=== PATIENT | male | born 1945 | race Caucasian/White ===

== ENCOUNTER → 2017-02-14 | Outpatient (CLI) | payer BC ==
[~2017-02-14] MED LIST: ASPI81TA28 PO; BNC20 PO; FLM4 PO; MORP1TAB12 PO; NRN800 PO; OMEP20CA9 PO; OXYC-57 PO; PREG1CAP36 PO; PSYL55.43 PO; TRIA37.5 PO; VTMD PO
== END | disposition home or self-care (01) ==
LOC: C.LAB1850 15:34
PROVIDERS: ATTEND Physician Assistant Medical
DX: C61 Malignant neoplasm of prostate (principal)

== ENCOUNTER → 2017-08-23 | Outpatient (CLI) | payer BC ==
[2017-08-23 14:58] VITALS: BP 118/75; PULSE 80; TEMP 36.7; O2SAT 95
--- NOTE | 2017-08-24 07:34 | Radiation Oncology Follow-Up ---
Radiation Oncology Follow-Up Date of Visit Aug 23, 2017. Reason For Visit Annual follow-up Radiation Completion Date 08/01/12 Diagnosis (1) Prostate cancer Status: Resolved Onset Date: 04/03/2012 Location: both lobes of the prostate Histology Subtype: adenocarcinoma Stage: ll Permanent Comment: positive family history of prostate cancer Rising PSA biopsy positive for adenocarcinoma Pierson grade 3+3 biopsy stage TIIc presenting PSA 5.9 Status post completion of radiation therapy utilizing IMRT/IGRT completed 2011 received 7800 cGy Last Edited By: Iveth Guzman on February 24, 2015 17:12 Interim History He's been doing well over the past year from urinary standpoint. He completed an AUA form and gave a score of 4. He continues on tamsulosin once daily. She completed expanded prostate cancer index composite for clinical practice and gave a score of 4 of 12 in urinary incontinence symptoms. He gave a score of 0 of 12 in urinary irritation symptoms. He gave a score of 0 of 12 bowel symptoms. He gave a score of 7 of 12 in sexual symptoms. He gave a score of 5 of 12 in hormonal vitality symptoms. His total with 16 of 60. He continues to have ongoing back pain which is chronic for many years. He had multiple MRIs and 2016. In these have shown degenerative changes as well as spinal stenosis. In discussing these findings I reviewed with him that these have not shown any signs of metastatic disease. This is in keeping with his excellent PSAs. His most recent PSA was 08/14/2017. This was 0.650. He had a PSA on 2016 that was 0.839. Allergies Coded Allergies: Adhesives (Verified Allergy, Mild, RASH, 10/06/16) Meloxicam (Unverified Allergy, Mild, rash, 10/06/16) Benazepril (Unverified Allergy, Unknown, rash, 10/06/16) Ciprofloxacin (Unverified Allergy, Unknown, rash, 10/06/16) Influenza Vaccine Live (Unverified Allergy, Unknown, rash, 10/06/16) Latex1 -Allergic Contact Dermititis (Verified Allergy, Unknown, RASH, ITCHY, 10/06/16) Lubiprostone (Verified Allergy, Unknown, UNKNOWN, 10/06/16) Red Dye (Verified Allergy, Unknown, UNKNOWN, 10/06/16) Yellow Dye (Verified Allergy, Unknown, UNKNOWN, 10/06/16) Tolterodine (Verified Adverse Reaction, Mild, BREASTS SWELL AND HURT, ) Home Medications Scheduled Aspirin (Aspirin Ec), 81 MG PO DAILY Ergocalciferol (Vitamin D), 50,000 UNITS PO WK Morphine Sulfate (Morphine Sulfate Er), 1 TAB PO DAILY Olmesartan Medoxomil (Benicar), 20 MG PO DAILY Omeprazole (Prilosec), 20 MG PO DAILY Pregabalin (Lyrica), 25 MG PO BID Psyllium (Metamucil Powder), 1 PACK PO DAILY Tamsulosin HCl (Tamsulosin HCl), 0.4 MG PO HS Triamterene/Hctz (Dyazide 37.5MG/25MG), 1 CAP PO QAM Scheduled PRN Oxycodone/Acetaminophen 5MG/325MG (Percocet 5MG/325MG), 1-2 TABLETS PO TID PRN for Pain Review of Systems Gastrointestinal: Symptoms: WNL Oral: Symptoms: No Problems Respiratory: Symptoms: WNL Urinary: Symptoms: WNL, Nocturia Comments: Nocturia x 1, See AUA & EPIC Physical Exam Vital Signs Date Time Temp Pulse Resp B/P (MAP) Pulse Ox O2 Delivery O2 Flow Rate FiO2 08/23/17 14:58 36.7 80 18 118/75 95 Fatigue: None General Appearance: no apparent distress Eyes: normal inspection, EOMI ENT: normal ENT inspection, hearing grossly normal Neck: no adenopathy, thyroid normal Respiratory/Chest: lungs clear, no respiratory distress, no accessory muscle use Cardiovascular: regular rate, rhythm, no gallop, no murmur Abdomen: non tender, soft, no organomegaly Anal / Rectum: Mild external hemorrhoids. Normal sphincter tone. No rectal masses and no rectal bleeding. Extremities: no pedal edema Neurologic/Psychiatric: no motor/sensory deficits, alert, normal mood/affect Skin: warm/dry Laboratory Studies Test 08/14/17 10:07 Prostate Specific Antigen 0.650 ng/ml (0.000-4.000) Assessment & Plan Plan: We reviewed his PSAs. I've given him a printout of the PSAs over the past several years. He is now going to continue follow-up with his primary care physician. A follow-up appointment with our office was not given. We did discuss that she should continue to have PSAs on an annual basis as well as digital rectal examinations. He may call our office if he has any questions or concerns with be happy to see him. Total Time In Follow-Up I spent 20 minutes speaking to the patient and performing examination. I spent 15 minutes reviewing information and completing this note. Copy To Tung Greco M.D.
== END | disposition home or self-care (01) ==
LOC: C.ONC 14:49
PROVIDERS: ATTEND Physician Assistant Medical
DX: Z08 Encounter for follow-up examination after completed treatment for malignant neoplasm (principal); Z92.3 Personal history of irradiation; Z85.46 Personal history of malignant neoplasm of prostate

== ENCOUNTER 2019-01-26 10:45 | Inpatient (IN) ==
[2019-01-26 11:47] LABS: Basophils # (auto) 0.04 K/uL (0-0.2); Basophils % (auto) 0.4 %; Eosinophils # (auto) 0.06 K/uL (0-0.5); Eosinophils % (auto) 0.7 %; Hematocrit (blood only) 46.6 % (42-52); Hemoglobin 15.9 g/dL (14.0-18.0); Immature Granulocytes # (auto) 0.04 K/uL (0.00-0.02); Immature Granulocytes % (auto) 0.4 %; Lymphocytes # (auto) 3.99 K/uL (1.2-3.4); Lymphocytes % (auto) 43.6 %; Mean Corpuscular Hgb Conc 34.1 g/dL (32-36); Mean Corpuscular Volume 92.6 fL (80-100); Monocytes # (auto) 0.74 K/uL (0.11-0.59); Monocytes % (auto) 8.1 %; Neutrophils # (auto) 4.29 K/uL (1.4-6.5); Neutrophils % (auto) 46.8 %; Platelet Count 251 K/uL (130-400); RDW Coefficient of Variation 14.2 % (11.5-14.5); RDW Standard Deviation 48.4 fL (36.4-46.3); Red Blood Count 5.03 M/uL (4.7-6.1); White Blood Count 9.16 K/uL (4.8-10.8)
[2019-01-26 11:56] LABS: Prothrombin Time 10.5 Seconds (9.0-12.0)
--- NOTE | 2019-01-26 11:59 | XRay Report ---
XR chest 1V portable CLINICAL HISTORY: weakness COMPARISON STUDY: 06/27/2018 FINDINGS: The heart is normal in size. There is stable aortic tortuosity/ectasia. There is no lobar c onsolidation. There is subtle interstitial thickening, a finding which may in part be secondary to te chnical factors. There is no overt failure. IMPRESSION: 1. Subtle nonspecific interstitial thickening 2. No evidence of focal pulmonary consolidation 3. No evidence of overt failure Electronically signed by: Alek Stout M.D. 01/26/2019 11:58 AM
[2019-01-26 12:14] LABS: Albumin Level 3.7 gm/dl (3.4-5.0); BUN Creatinine Ratio 13.2 (10-20); Calcium 9.2 mg/dl (8.5-10.1); Creatinine Clr Calc Pharmacy 58.9 ml/min; Est GFR (African American) 55.1; Est GFR (Non-African American) 47.6; Magnesium 1.8 mg/dl (1.8-2.4); Potassium 4.7 mmol/L (3.5-5.1)
[2019-01-26 12:16] LABS: Appearance Urine Clear (Clear); Bacteria Urine Automated Negative (Negative); Bilirubin Urine Negative (Negative); Blood Urine Trace (Negative); Cast Urine Automated 0 /lpf (0-5); Color Urine Yellow; Epithelial Cell Urine Auto 0-5 /lpf (0-5); Glucose Urine UA 3+ (Negative); Ketones Urine Negative (Negative); Leukocyte Esterase Urine Negative (Negative); Nitrite Urine Negative (Negative); Protein Urine Negative (Negative); RBC Urine Automated 0-4 /hpf (0-4); Urobilinogen Urine Negative (Negative); WBC Urine Automated 0 /hpf (0-5); pH Urine 5.5 (4.5-7.5)
--- NOTE | 2019-01-26 12:18 | CT Scan Report ---
CT head/brain wo con CLINICAL HISTORY: weakness COMPARISON STUDY: MRI dated 08/22/2015 TECHNIQUE: Axial CT of the brain is performed from the vertex to the skull base. IV contrast was not administered for this examination. A dose lowering technique was utilized adhering to the principles of ALARA. CT DOSE: 1074.96 mGy.cm FINDINGS: No intra or extra-axial mass lesions are visualized. There is no CT evidence of acute cortical infarc tion. There is no evidence of midline shift. There is no acute hemorrhage. No calvarial fractures ar e visualized. There are patchy white matter hypodensities likely on a small vessel basis. There is right parietal l obe encephalomalacia subjacent to a right sided craniotomy. There is persistent demineralization of t he craniotomy flap There is no evidence of pathologic ventricular dilatation. There is no evidence of acute sinusitis IMPRESSION: 1. Post craniotomy changes in the right with underlying encephalomalacia 2. No acute intracranial findings Electronically signed by: Alek Stout M.D. 01/26/2019 12:17 PM
[2019-01-26 12:21] LABS: Albumin Globulin Ratio 0.9 (0.9-2); Bilirubin,Total 0.4 mg/dl (0.2-1); Total Protein 7.7 gm/dl (6.4-8.2)
[2019-01-26] MEDS ORDERED: ASPIRIN CHEW 324 MG PO STA (13:15)
[2019-01-26] MEDS ORDERED: ASPIRIN 81 MG CHEW ONE (13:22)
--- NOTE | 2019-01-26 15:02 | History & Physical Report ---
Date of Service January 26, 2019 Assessment & Plan (1) TIA (transient ischemic attack): Presents with transient weakness/numbness of left side of face, left neck, left shoulder, left lower extremity Symptoms has resolved after arrival to ER CT head noncontrast shows no acute change Patient given full-strength aspirin in ER Takes aspirin 81 mg daily at night We will order for MRI of brain, carotid Doppler, echo as part of the stroke workup Neurology consult requested Patient will be continued on his usual dose of aspirin Present on Admission?: Yes (2) Left sided numbness: Has chronic left-sided numbness/weakness after right-sided craniotomy Developed worsening of symptoms in the morning Most of the symptom has resolved after arrival to ER (3) History of brain surgery: 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 Mendoza, leading to residual left-sided weakness and left-sided foot drop (4) DM type 2 (diabetes mellitus, type 2): Diet controlled, not on any meds Order for hemoglobin A1c in a.m. (5) GERD (gastroesophageal reflux disease): Continue PPI (6) Prostate cancer: (7) Foot drop, left: Secondary to prior right sided craniotomy, uses brace Ordered for PT OT eval (8) Hypertension: Blood pressure stable, patient is continue with outpatient medication of HCTZ/Benicar Present on Admission?: Yes (9) Lumbar stenosis with neurogenic claudication: Has chronic back pain, status post lumbar decompression surgery done by Dr Shah Continue on Lyrica PT OT eval requested (10) CKD (chronic kidney disease), stage III: Creatinine at approximate baseline CODE STATUS: Full code DVT prophylaxis: SCD and teds, ambulate Disposition: Expected to be discharged home when medically stable Recent follow-up with Dr. Rudd at [facility] History of Present Illness Chief Complaint: Numbness on left side of face, left arm left leg Primary Care Provider: Tung Greco MD This is a 73-year-old male with past medical history of type 2 diabetes, not on any meds, history of prostate cancer, history of chronic back pain for lumbar DJD, history of cervical radiculopathy, GERD, history of intracranial hemorrhage on right side secondary to AVM requiring craniotomy, chronic left-sided weakness, foot drop secondary to intracranial hemorrhage, hypertension Came to [facility] ER this morning, with a complaint of feeling of worsening of numbness, weakness on his left extremity Woke up this morning, with feeling of numbness on left side of face, tingling numbness radiating to left side of neck to back and left shoulder, worsening of numbness of left arm and left leg Also noted to have left eyelid droop, No headache, no blurred vision, Had trouble articulating initially, which was resolved by the time he arrived to ER Patient had prior history of spontaneous intracranial hemorrhage requiring craniotomy on the right side, has chronic weakness on the left including left foot drop Is presenting symptoms is a different, and worsening from his chronic weakness which caused him to be alarmed CT head without contrast done in the ER: Showed Postcraniotomy changes in the right with underlying encephalomalacia. No acute intracranial findings Patient will be observed in telemetry for further stroke workup Allergies Allergy/AdvReac Type Severity Reaction Status Date / Time adhesive Allergy Mild RASH Verified 01/26/19 11:56 meloxicam Allergy Mild rash Verified 01/26/19 11:56 benazepril Allergy Unknown rash Verified 01/26/19 11:56 Cipro Allergy Unknown rash Unverified 10/06/16 09:59 ciprofloxacin Allergy Unknown rash Verified 01/26/19 11:56 Influenza Virus Vaccines Allergy Unknown rash, sick Verified 01/26/19 11:56 latex Allergy Unknown RASH, Verified 01/26/19 11:56 ITCHY, HIVES lubiprostone Allergy Unknown UNKNOWN Verified 01/26/19 11:56 yellow dye Allergy Unknown UNKNOWN Verified 01/26/19 11:56 tolterodine AdvReac Mild BREASTS Verified 01/26/19 11:56 SWELL AND HURT Home Medications Home Medications Medication Instructions Recorded Confirmed Type Metamucil Sugar-Free (aspart) 1 dose PO QPM 06/25/18 01/26/19 History aspirin [Aspir-81] 81 mg PO HS 06/25/18 01/26/19 History olmesartan [Benicar] 20 mg PO QAM 06/25/18 01/26/19 History omeprazole 20 mg PO QAM 06/25/18 01/26/19 History tamsulosin 0.4 mg PO QAM 06/25/18 01/26/19 History hydrochlorothiazide 0 mg PO DAILY 01/26/19 01/26/19 History pregabalin [Lyrica] 50 mg PO DIRECTED 01/26/19 01/26/19 History triamterene-hydrochlorothiazid 0 mg PO UNKNOWN 01/26/19 01/26/19 History Past Med/Surg History Medical History Acquired left foot drop 2/2 brain surgery, wears brace and uses cane Cancer PROSTATE (APPROX 5 YRS AGO, S/P XRT, NO SURGERY) AND SKIN 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 Diabetes mellitus, type 2 NO MEDS, DIET CONTROLLED GERD (gastroesophageal reflux disease) Hyperlipidemia Hypertension Osteoarthritis Personal history of DVT (deep vein thrombosis) FOLLOWING BRAIN SURGERY ...LEFT LEG DVT - NO CLOTS SINCE Surgical History History of back surgery 2010 LAMINECTOMY History of inferior vena caval filter placement HX JOVANNA FILTER AFTER DVT Hx of brain surgery For cavernous hemangioma Hx of breast surgery X3 FOR FIBROUS TUMORS - BENIGN Hx of colonoscopy Nausea and vomiting after administration of anesthetic agent Family History Mother Family hx of colon cancer Grandmother Family hx of colon cancer Social History Preferred Language: Bahraini Communication Ability: Effective Beliefs That Will Affect Care: None marital status: Current Living Situation: Spouse Feels Safe at Home: Yes Smoking Status: Former smoker Tobacco Type: cigarettes and pipe Cigarettes Per Day: 1PPD X 24 Hx Alcohol Use: Yes Alcohol type: beer Hx Substance Use: No Review of Systems Review of Systems: All systems reviewed & are unremarkable except as noted in HPI & below Eyes: + corrective lenses; no blind spots, no diplopia, no decreased night vision, no eye pain, no loss of peripheral vision, no photophobia and not seeing flashes Ear, Nose, Mouth, Throat: as per Subjective / HPI; no ear pain, no ear trauma and no hearing loss Respiratory: as per Subjective / HPI; no cough, no dyspnea, no wheezing and no problem reported Cardiovascular: no chest pain, no chest pain at rest, no orthopnea and no problem reported Gastrointestinal: no problem reported Genitourinary: no problem reported Musculoskeletal: as per Subjective / HPI, + limited range of motion (On left shoulder since brain surgery) and + muscle weakness (Left-sided chronic weakness, left foot drop) Left-sided chronic pain, worsening of symptoms started this morning Neurologic: as per Subjective / HPI, + localized weakness (On left arm, shoulder, left lower extremity) and + numbness (Left side of the face, left arm and left shoulder,); no dizziness, no syncope and no headache(s) Physical Exam Constitutional: WD/WN, vitals as above well developed; no acute distress Very pleasant elderly male, communicating appropriately no difficulty in speech noted Eyes: PERRL, conjunctivae normal, anicteric sclerae ENMT: external ear and nose normal, oropharynx normal Neck: trachea midline, no thyromegaly Respiratory: normal respiratory effort, lungs clear to auscultation Cardiovascular: RRR, no murmur, no edema Gastrointestinal (Abdomen): normal bowel sounds, soft, nontender, no hepatosplenomegaly Musculoskeletal: Extremities: + limited ROM of extremities (Left shoulder joint/left ankle has left foot drop) Left-sided chronic pain, left foot drop chronic left-sided lower extremity, Left foot drop Skin: no rashes, warm and dry Neurologic: PERRL, EOMI, accommodation nl, no face palsy, no dysarthria moves all extremities Normal muscle strength bilaterally both upper and lower extremity Psychiatric: A+Ox3, euthymic affect Results & Data Vital Signs (Past 12 Hours) Vital Signs Temp Pulse Pulse Resp BP BP Pulse Ox 01/26/19 14:02 82 18 152/97 H 94 01/26/19 13:32 86 18 151/89 H 95 01/26/19 12:47 87 18 141/73 H 92 01/26/19 11:06 97 H 96 01/26/19 10:47 36.5 C 97 H 20 186/84 H 97 Code Status & VTE Plan Code Status Full code VTE Prophylaxis Plan VTE Prophylaxis will be ordered: Yes Reason for no VTE drug order: Contraindicated (History of intracranial hemorrhage)
[2019-01-26] MEDS ORDERED: POLYETHYLENE (MIRALAX) 17 GM PACK PO PRN (16:03)
[2019-01-26] MEDS ORDERED: MAGNESIUM HYDROXIDE SUSP 30 ML UDC PO PRN (16:03)
[2019-01-26] MEDS ORDERED: PHARMACIST DISCHARGE MED REC CONSULT PRN (16:03)
[2019-01-26] MEDS ORDERED: NITROGLYCERIN SL 0.4 MG/TAB TAB SL PRN (16:03)
[2019-01-26] MEDS ORDERED: ONDANSETRON INJ 2 MG/ML 2 ML VIAL IV PRN (16:03)
[2019-01-26] MEDS ORDERED: ALUMINUM/MAGNESIUM SUSP 30 ML UDC PO PRN (16:03)
[2019-01-26] MEDS ORDERED: ACETAMINOPHEN 325 MG TAB PO PRN (16:03)
[2019-01-26] MEDS ORDERED: CYCLOBENZAPRINE HCL 10 MG TAB PO PRN (16:31)
--- NOTE | 2019-01-26 17:11 | Emergency Department Note ---
Entered by Geraldine Garcia acting as a scribe for ED Provider Note CHIEF COMPLAINT: Vertigo. HISTORY OF PRESENT ILLNESS: The patient is a 73 year old male who presents to the Emergency Room with complaints of vertigo since 1200 yesterday afternoon. He admits to a history of vertigo but states his current symptoms feel different from his previous vertigo episodes. The patient admits to a history of brain surgery in 2008 that left him with chronic left sided numbness in his left arm. He states this morning around 0800, he started to experience "new numbness" in the left side of his face and left leg. He denies any difficulty speaking or vision changes. He denies any prior history of CVA's or TIA's. His reports this morning she noticed some "droopiness" in the patients left eyelid. The patient notes the only medications he did not take this morning were a baby Aspirin. Pt denies LOC, headache, fevers, chills, diaphoresis, visual changes, neck pain, chest pain, breathing difficulties, nausea, vomiting, abdominal pain, back pain, melena, hematochezia, urinary symptoms, lymphadenopathy, rash, or other complaints. REVIEW OF SYSTEMS: See HPI for pertinent positives and negatives. A total of ten systems were reviewed and were otherwise negative. PMHx/PSHx: DM. GERD. History of brain surgery. SOCIAL HISTORY: Patient lives at home. PHYSICAL EXAM: GENERAL: Awake, alert, well appearing, no distress HENT: Normocephalic, atraumatic. TM's normal. Oropharynx unremarkable. EYES: PERRL. EOMI. Normal conjunctiva. Sclera non-icteric. NECK: Supple. No nuchal rigidity. FROM. No bruit. RESPIRATORY: Breath sounds equal. No wheezes. No rhonchi. Normal respiratory effort. CARDIAC: Normal rate. Regular rhythm. No murmurs. No rubs. No JVD. GI: Soft, non distended. No tenderness to palpation. No rebound or guarding. No masses. RECTAL: Deferred. MUSCULOSKELETAL: Unremarkable. No edema. No discoloration. Gross motor strength symmetric. NEURO: Cranial nerves 2-12 grossly intact. Subtle left sided facial droop. Normal sensorium. No sensory or motor deficits noted. Speech normal. No pronator drift. Gait normal. Negative rhomberg. SKIN: No rash or jaundice noted. LYMPH: No adenopathy. EMERGENCY DEPARTMENT COURSE: 1145: The patient was evaluated in room A3, and a complete history and physical examination were performed. 1310: I reevaluated the patient. He is still experiencing some symptoms. I discussed my recommendation he be further evaluated by the hospital medicine team and he verbalized complete understanding and agreement. 1358: I discussed the patients case with Deric Davisholy [facility] Hospitalist. The patient will be further evaluated. MEDICAL DECISION MAKING: Prior records/ancillary studies reviewed. Triage Nursing notes reviewed and agree them. The patient's history was concerning for dizziness. Differential diagnosis: Etiologies such as benign positional vertigo, TIA, CVA, tumor, infection, hypoglycemia, electrolyte abnormalities, cardiac sources, intracerebral event, toxicologic, neurologic, as well as others were entertained. Physical examination: As above. No pathologic nystagmus. The patient does have some subtle left facial droop. He had subjective complaints of numbness and tingling on the left side however sensation was generally intact. He had no drift. ER treatment provided: Oral aspirin On reassessment the patient felt better. The patient is expensing symptoms from yesterday and through today. He is out of the window of thrombolytic therapy. His symptoms are very mild. On reassessment his facial droop is actually improved. Diagnostics interpretation by me: ECG: Normal sinus rhythm without ischemic change or evidence of dysrhythmia. Laboratory studies: Coags negative. TSH negative. Urinalysis negative. The labs revealed a normal CBC and chemistry panel. Imaging studies: Chest x-ray and head CT negative. His symptoms are concerning for a neurologic event. Further management and workup in the hospital will be necessary to rule out stroke or other etiology. Consultation: A consultation was placed with the hospitalist. The case was discussed and diagnostics were reviewed. The patient was evaluated in the ER for further aneudy atment. IMPRESSION: Left sided numbness. Facial droop. PLAN: Evaluation by Hospitalist. The scribe's documentation has been prepared under my direction and personally reviewed by me in its entirety. I confirm that the note above accurately re flects all work, treatment, procedures, and medical decision making performed by me. 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 Diabetes mellitus, type 2 NO MEDS, DIET CONTROLLED GERD (gastroesophageal reflux disease) Hyperlipidemia Hypertension Osteoarthritis Personal history of DVT (deep vein thrombosis) FOLLOWING BRAIN SURGERY ...LEFT LEG DVT - NO CLOTS SINCE Surgical History History of back surgery 2011 LAMINECTOMY History of inferior vena caval filter placement HX JOVANNA FILTER AFTER DVT Hx of brain surgery For cavernous hemangioma Hx of breast surgery X3 FOR FIBROUS TUMORS - BENIGN Hx of colonoscopy Nausea and vomiting after administration of anesthetic agent Family History Mother Family hx of colon cancer Grandmother Family hx of colon cancer Social History Preferred Language: Yoruba Communication Ability: Effective Beliefs That Will Affect Care: None marital status: Current Living Situation: Spouse Other Information That Helps Us Care for You: No Feels Safe at Home: Yes Safety Concerns: Feels Safe At This Time Smoking Status: Former smoker Tobacco Type: cigarettes and pipe Cigarettes Per Day: 1PPD X 24 Hx Alcohol Use: Yes Alcohol type: beer Hx Substance Use: No Results & Data Vital Signs Vital Signs - 24 hr 01/26/19 10:47 01/26/19 11:06 01/26/19 12:47 Temperature 36.5 C Temperature Source Oral Sepsis Recent Fever Within 48 Hours No Sepsis Action Taken by Nursing No Action Required Pulse Rate 97 H 97 H Pulse Rate [Left] 87 Pulse Rhythm Regular Pulse Rhythm [Left] Pulse Strength Normal Pulse Strength [Left] Respiratory Rate 20 18 Respiratory Effort / Characteristics Non-Labored Spontaneous Non-Labored Spontaneous Respiratory Depth Normal Respiratory Pattern Blood Pressure 186/84 H Blood Pressure [Right Arm] 141/73 H Blood Pressure Mean 118 Blood Pressure Mean [Right Arm] 95 Blood Pressure Position [Right Arm] Lying Pulse Oximetry 97 96 92 Oxygen Delivery Method Room Air Room Air Room Air 01/26/19 13:32 01/26/19 14:02 01/26/19 15:14 Temperature 36.9 C Temperature Source Oral Sepsis Recent Fever Within 48 Hours Sepsis Action Taken by Nursing Pulse Rate Pulse Rate [Left] 86 82 77 Pulse Rhythm Pulse Rhythm [Left] Regular Pulse Strength Pulse Strength [Left] Normal Respiratory Rate 18 18 18 Respiratory Effort / Characteristics Non-Labored Spontaneous Non-Labored Spontaneous Non-Labored Spontaneous Respiratory Depth Normal Normal Respiratory Pattern Regular Blood Pressure Blood Pressure [Right Arm] 151/89 H 152/97 H 164/97 H Blood Pressure Mean Blood Pressure Mean [Right Arm] 109 115 119 Blood Pressure Position [Right Arm] Lying Sitting Pulse Oximetry 95 94 96 Oxygen Delivery Method Room Air Room Air Room Air 01/26/19 15:18 Temperature Temperature Source Sepsis Recent Fever Within 48 Hours Sepsis Action Taken by Nursing Pulse Rate 75 Pulse Rate [Left] Pulse Rhythm Pulse Rhythm [Left] Pulse Strength Pulse Strength [Left] Respiratory Rate 18 Respiratory Effort / Characteristics Respiratory Depth Respiratory Pattern Blood Pressure 149/92 H Blood Pressure [Right Arm] Blood Pressure Mean Blood Pressure Mean [Right Arm] Blood Pressure Position [Right Arm] Pulse Oximetry 95 Oxygen Delivery Method Room Air Home Medications Current Medication List: was personally reviewed by me Laboratory Data Attestation: I reviewed the patient's lab results. Result diagrams: 01/26/19 11:02 01/26/19 11:02 Lab Results 01/26/19 01/26/19 01/26/19 Range/Units 11:02 11:02 11:02 WBC 9.16 (4.8-10.8) K/uL RBC 5.03 (4.7-6.1) M/uL Hgb 15.9 (14.0-18.0) g/dL Hct 46.6 (42-52) % MCV 92.6 (80-100) fL MCH 31.6 (25-34) pg MCHC 34.1 (32-36) g/dL RDW Std Deviation 48.4 H (36.4-46.3) fL RDW Coeff of Amaya 14.2 (11.5-14.5) % Plt Count 251 (130-400) K/uL MPV 10.0 (7.4-10.4) fL Immature Gran % (Auto) 0.4 % Neut % (Auto) 46.8 % Lymph % (Auto) 43.6 % Imperial % (Auto) 8.1 % Eos % (Auto) 0.7 % Baso % (Auto) 0.4 % Immature Gran # (Auto) 0.04 H (0.00-0.02) K/uL Neut # (Auto) 4.29 (1.4-6.5) K/uL Lymph # (Auto) 3.99 H (1.2-3.4) K/uL Imperial # (Auto) 0.74 H (0.11-0.59) K/uL Eos # (Auto) 0.06 (0-0.5) K/uL Baso # (Auto) 0.04 (0-0.2) K/uL PT 10.5 (9.0-12.0) Seconds INR 1.0 (0.9-1.1) Sodium 135 L (136-145) mmol/L Potassium 4.7 (3.5-5.1) mmol/L Chloride 105 (98-107) mmol/L Carbon Dioxide 26 (21-32) mmol/L Anion Gap 4.0 (3-11) BUN 19 H (7-18) mg/dl Creatinine 1.43 H (0.6-1.4) mg/dl Est Cr Clr Drug Dosing 58.9 ml/min Est GFR ( Amer) 55.1 Est GFR (Non-Af Amer) 47.6 BUN/Creatinine Ratio 13.2 (10-20) Glucose 300 H (70-99) mg/dl Calcium 9.2 (8.5-10.1) mg/dl Magnesium 1.8 (1.8-2.4) mg/dl Total Bilirubin 0.4 (0.2-1) mg/dl AST 13 L (15-37) U/L ALT 23 (12-78) U/L Alkaline Phosphatase 114 (45-117) U/L Total Protein 7.7 (6.4-8.2) gm/dl Albumin 3.7 (3.4-5.0) gm/dl Globulin 4.0 (2.5-4.0) gm/dl Albumin/Globulin Ratio 0.9 (0.9-2) TSH 1.180 (0.300-4.500) uIu/ml Specimen Hemolysis Urine Color Urine Appearance (Clear) Urine pH (4.5-7.5) Ur Specific [place] (1.000-1.030) Urine Protein (Negative) Urine Glucose (UA) (Negative) Urine Ketones (Negative) Urine Blood (Negative) Urine Nitrite (Negative) Urine Bilirubin (Negative) Urine Urobilinogen (Negative) Ur Leukocyte Esterase (Negative) Urine WBC (Auto) (0-5) /hpf Urine RBC (Auto) (0-4) /hpf U Hyaline Cast (Auto) (0-5) /lpf U Epithel Cells (Auto) (0-5) /lpf Urine Bacteria (Auto) (Negative) 01/26/19 Range/Units 12:00 WBC (4.8-10.8) K/uL RBC (4.7-6.1) M/uL Hgb (14.0-18.0) g/dL Hct (42-52) % MCV (80-100) fL MCH (25-34) pg MCHC (32-36) g/dL RDW Std Deviation (36.4-46.3) fL RDW Coeff of Amaya (11.5-14.5) % Plt Count (130-400) K/uL MPV (7.4-10.4) fL Immature Gran % (Auto) % Neut % (Auto) % Lymph % (Auto) % Imperial % (Auto) % Eos % (Auto) % Baso % (Auto) % Immature Gran # (Auto) (0.00-0.02) K/uL Neut # (Auto) (1.4-6.5) K/uL Lymph # (Auto) (1.2-3.4) K/uL Imperial # (Auto) (0.11-0.59) K/uL Eos # (Auto) (0-0.5) K/uL Baso # (Auto) (0-0.2) K/uL PT (9.0-12.0) Seconds INR (0.9-1.1) Sodium (136-145) mmol/L Potassium (3.5-5.1) mmol/L Chloride (98-107) mmol/L Carbon Dioxide (21-32) mmol/L Anion Gap (3-11) BUN (7-18) mg/dl Creatinine (0.6-1.4) mg/dl Est Cr Clr Drug Dosing ml/min Est GFR ( Amer) Est GFR (Non-Af Amer) BUN/Creatinine Ratio (10-20) Glucose (70-99) mg/dl Calcium (8.5-10.1) mg/dl Magnesium (1.8-2.4) mg/dl Total Bilirubin (0.2-1) mg/dl AST (15-37) U/L ALT (12-78) U/L Alkaline Phosphatase (45-117) U/L Total Protein (6.4-8.2) gm/dl Albumin (3.4-5.0) gm/dl Globulin (2.5-4.0) gm/dl Albumin/Globulin Ratio (0.9-2) TSH (0.300-4.500) uIu/ml Specimen Hemolysis Urine Color Yellow Urine Appearance Clear (Clear) Urine pH 5.5 (4.5-7.5) Ur Specific [place] 1.020 (1.000-1.030) Urine Protein Negative (Negative) Urine Glucose (UA) 3+ H (Negative) Urine Ketones Negative (Negative) Urine Blood Trace H (Negative) Urine Nitrite Negative (Negative) Urine Bilirubin Negative (Negative) Urine Urobilinogen Negative (Negative) Ur Leukocyte Esterase Negative (Negative) Urine WBC (Auto) 0 (0-5) /hpf Urine RBC (Auto) 0-4 (0-4) /hpf U Hyaline Cast (Auto) 0 (0-5) /lpf U Epithel Cells (Auto) 0-5 (0-5) /lpf Urine Bacteria (Auto) Negative (Negative) Administered Medications Discontinued Medications Aspirin (Aspirin) 324 mg PO NOW STA Stop: 01/26/19 13:16 Last Admin: 01/26/19 13:25 Dose: 324 mg Documented by: [id number] Aspirin (Aspirin Chew) Confirm Administered Dose 324 mg .ROUTE .Snapsort-MED ONE Stop: 01/26/19 13:23 Last Admin: 01/26/19 13:25 Dose: Not Given Documented by: [id number] Imaging Data Radiologist's Impression: Radiology results as stated below per my review and the radiologist's interpretation: CT head/brain wo con CLINICAL HISTORY: weakness COMPARISON STUDY: MRI dated 08/22/2015 TECHNIQUE: Axial CT of the brain is performed from the vertex to the skull base. IV contrast was not administered for this examination. A dose lowering technique was utilized adhering to the principles of ALARA. CT DOSE: 1074.96 mGy.cm FINDINGS: No intra or extra-axial mass lesions are visualized. There is no CT evidence of acute cortical infarction. There is no evidence of midline shift. There is no acute hemorrhage. No calvarial fractures are visualized. There are patchy white matter hypodensities likely on a small vessel basis. There is right parietal lobe encephalomalacia subjacent to a right sided craniotomy. There is persistent demineralization of the craniotomy flap There is no evidence of pathologic ventricular dilatation. There is no evidence of acute sinusitis IMPRESSION: 1. Post craniotomy changes in the right with underlying encephalomalacia 2. No acute intracranial findings Electronically signed by: Alek Stout M.D. 01/26/2019 12:17 PM XR chest 1V portable CLINICAL HISTORY: weakness COMPARISON STUDY: 06/27/2018 FINDINGS: The heart is normal in size. There is stable aortic tortuosity/ectasia. There is no lobar consolidation. There is subtle i nterstitial thickening, a finding which may in part be secondary to technical factors. There is no overt failure. IMPRESSION: 1. Subtle nonspecific interstitial thickening 2. No evidence of focal pulmonary consolidation 3. No evidence of overt failure Electronically signed by: Alek Stout M.D. 01/26/2019 11:58 AM ECG Data Attestation: I personally reviewed and interpreted this ECG as follows: Indication: weakness Rate (beats per minute): 98 Rhythm: sinus rhythm Findings: + other (LVH) and + PVC; no ST depression and no ST elevation Blood Pressure Blood Pressure Findings: Elevated blood pressure Blood Pressure Disposition: further management by hospitalist Discharge Plan Visit Data *Final* Discharge Date/Time: 01/26/19 15:18 Chief Complaint: Vertigo Stated Complaint: DIZZY, NUMBNESS IN LEFT LEG ED Provider: Alex Tabares Discharge Problem: Left sided numbness, Facial droop Patient Disposition: Admitted As Inpatient Discharge Instructions Interventions: ED Discharge Assessment Last Done: 01/26/19 15:18 The scribe's documentation has been prepared under my direction and personally reviewed by me in its entirety. I confirm that the note above accurately reflects all work, treatment, procedures, and medical decision making performed by me.
[2019-01-26] MEDS ORDERED: GADOBUTROL 65ML VIAL IV PRN (20:12)
[2019-01-26] MEDS: PREGABALIN 50 MG CAP PO SCH (20:52)
[2019-01-26] MEDS: ASPIRIN 81 MG ECTAB PO SCH (20:52)
--- NOTE | 2019-01-26 20:55 | Magnetic Resonance Report ---
MRI OF THE BRAIN WITHOUT AND WITH IV CONTRAST CLINICAL HISTORY: Transient ischemic attack DIZZINESS, LEFT EYE DROOP. LEFT CHEEK NUMBNESS. HISTORY O F ANEURYSM. COMPARISON STUDY: CT scan dated 01/26/2019 , MRI the brain dated 08/22/2015 TECHNIQUE: MRI of the brain was performed from the vertex to the skull base utilizing various T1 and T2 weighted sequences. Following the IV administration of 10.5 mL of Gadavist contrast, additional en hanced images were obtained. FINDINGS: Sagittal T1, axial diffusion, proton density and T2 weighted axial, coronal FLAIR, and pre and post a xial T1-weighted images were acquired. These were supplemented with post gadolinium coronal T1 weight ed images. Axial diffusion-weighted images reveal no evidence of acute or subacute infarction. There is no evidence of ventricular dilatation. Proton density T2-weighted and FLAIR images reveal scattered foci of increased T2 signal within the w sherif matter, likely on a small vessel basis. In addition there is a focus of right parietal lobe ence phalomalacia, subjacent to a craniotomy flap. There are no abnormal flow voids. There is a 5 mm enhancing nodule within the periphery of the right parietal lobe abutting the dural s urface. IMPRESSION: 1. No evidence of acute or subacute infarction 2. Stable right sided post craniotomy changes with subjacent encephalomalacia 3. Stable x9 years enhancing 5 mm nodule within the periphery of the right parietal lobe posteriorly Electronically signed by: Alek Stout M.D. 01/26/2019 8:53 PM
--- NOTE | 2019-01-26 22:34 | Ultrasound Report ---
ULTRASOUND OF THE CAROTID ARTERIES CLINICAL HISTORY: Transient ischemic attack COMPARISON STUDY: None. TECHNIQUE: Real-time, grayscale, and color Doppler sonography of the carotid arteries was performed. Imaging reviewed in the transverse and longitudinal planes. NASCET criteria was utilized for stenosis calcification. FINDINGS: There is minor atherosclerotic plaque present . The peak systolic velocity within the right internal carotid artery is 89 cm/sec. The systolic velocity ratio of right internal to common carotid artery is 1.4. The peak systolic velocity within the left internal carotid artery is 72 cm/sec. The systolic velocity ratio left internal to common carotid artery is 1.0. Antegrade flow is seen in the vertebral arteries. The external carotid arteries are patent. Blood pressure in the right arm measured 164 mm/Hg. Blood pressure in the left arm measured 149 mm/H g. IMPRESSION: 1. No evidence of hemodynamically significant carotid stenosis 2. Systemic hypertension 3. Bilateral thyroid nodules several which demonstrate calcifications. Biopsy may be indicated. Dedic ated thyroid ultrasonography is recommended in follow-up. Electronically signed by: Alek Stout M.D. 01/26/2019 10:33 PM
--- NOTE | 2019-01-26 22:39 | CT Scan Report ---
CT OF THE CERVICAL SPINE CLINICAL HISTORY: Neck and left arm pain. COMPARISON STUDY: No previous studies for comparison. CT DOSE: 321.28 mGy.cm TECHNIQUE: CT scan of the cervical spine was performed from the skull base to the thoracic inlet. Elise ges are reviewed in the axial, sagittal, and coronal planes. IV contrast was not administered for thi s examination. A dose lowering technique was utilized adhering to the principles of ALARA. FINDINGS: There is a multinodular thyroid gland. There is no apical pneumothorax. The prevertebral soft tissues are normal. No fractures or subluxations are visualized. There are moderate multilevel degenerative changes. There is minor bony canal narrowing at the C5-6 l evel. There is mild bilateral foraminal narrowing at the C4-5 and C5-C6 levels. IMPRESSION: 1. Moderate multilevel degenerative change 2. No acute fractures or subluxations 3. Mild bilateral bony foraminal narrowing at the C4-5 and C5-6 levels. 4. Mild bony spinal canal narrowing at the C5-6 level. Electronically signed by: Alek Stout M.D. 01/26/2019 10:38 PM
[2019-01-27] MEDS: OLMESARTAN MEDOXOMIL 20 MG TAB PO SCH (09:43)
[2019-01-27] MEDS: PREGABALIN 50 MG CAP PO SCH ×2 (09:44→21:00)
[2019-01-27] MEDS: PANTOprazole 40 MG TAB PO SCH (09:44)
[2019-01-27] MEDS: TAMSULOSIN HCL 0.4 MG CAP PO SCH (09:44)
[2019-01-27] MEDS ORDERED: PERFLUTREN LIPID MICROSPHERE (DEFINITY) IV ONE (09:49)
[2019-01-27 09:55] LABS: BUN Creatinine Ratio 13.7 (10-20); Calcium 9.5 mg/dl (8.5-10.1); Creatinine Clr Calc Pharmacy 63.7 ml/min; Est GFR (African American) 59.6; Est GFR (Non-African American) 51.5
--- NOTE | 2019-01-27 11:45 | Communication Note ---
Date of Service: January 27, 2019 I have seen Mr. Guzman today, examined him, reviewed his imaging studies and discussed his case with Dr. 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 Jonh Mendoza and leaving in its week a mild left hemisensory deficits involving the face and arm and a significant upper motor neuron motor deficit involving the left leg. He has a number of vascular risk factors as outlined He presents now with a nearly 24-hour history of increased numbness involving left face arm and leg and some neck and left shoulder pain The numbness is improving but is still not back to what he considers his baseline particularly in the left leg. Exam shows to me deficits that may be long-standing but he feels that the degree of sensory loss in the left leg is worse At this point I suggested that we get another MRI noncontrast tomorrow to see if a small vascular event perhaps involving the right thalamus will be demonstrable and also to get an MRA of the intracranial vessels to be sure there is no residual vascular malformation Terms of treatment with an Plavix to his aspirin for at least 21 days and probably then switch him to pure Plavix Full consultation has been dictated but will not be typed until later. I have discussed this with Dr. Castillo today and we will revisit him tomorrow. Alex Lenz MD
--- NOTE | 2019-01-27 12:36 | Consultation Report ---
DATE OF CONSULTATION: 01/27/2019 CONSULTATION FOR: Dr. Nelson. HISTORY OF PRESENT ILLNESS: The patient is 73-year-old patient of Dr. 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 Jonh Mendoza and evacuation of the hematoma. He has done well ever since. Unfortunately, I do not have records available from prior [facility] assessments and we are not sure whether or not he has had angiographic studies to confirm the resolution of the AVM, but I am assuming that it was. He has had no other issues other than the fact that he has had a left leg paresis and upper motor neuron foot drop and some constant numbness of the left arm and face, which he insists became suddenly worse yesterday and persisted to the present time and only 10% improved from his status yesterday and are not back to baseline. That having been said, he has had extensive imaging studies including an MRI and CT scan which do not show any new events. PAST MEDICAL HISTORY: Reveals a vascular malformation and the chronic left-sided weakness and numbness syndrome following surgery. 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 MEDICATIONS AT HOME: Include Metamucil, aspirin, Benicar, omeprazole, tamsulosin, hydrochlorothiazide, Lyrica and triamterene. ALLERGIES: HE HAS EXTENSIVE ALLERGIES TO ADHESIVE, MELOXICAM, BENAZEPRIL, CIPROFLOXACIN, INFLUENZA VIRUS, LATEX, YELLOW DYE AND TOLTERODINE. FAMILY HISTORY: Noncontributory. SURGICAL HISTORY: Includes back surgery with the placement of inferior vena cava filter, brain surgery, breast surgery for fibrous tissue, ____ colonoscopy and he has had some issues with anesthesia induce nausea and vomiting. SOCIAL HISTORY: Reveals him to be a nonsmoker, minimal consumer of ethanol. REVIEW OF SYSTEMS: Reveals no real systemic issues. No fever, sweats, chills, hospitalization, weight loss, weight gain. No new issues referable to head, eyes, ears, nose and throat, cardiovascular, pulmonary, gastrointestinal, genitourinary, musculoskeletal, dermatologic, hematologic or endocrinologic systems other than those related to his chronic active medical problems. PHYSICAL EXAMINATION: Last night revealed him to be well-developed, well-nourished in no acute distress with normal HEENT examination. No carotid bruits. Clear lungs. No cardiac murmurs. No abdominal distention or organomegaly, but with very limited range of motion left leg and some chronic pain in his left shoulder, which had developed over the past several days as well. Today neurologically he is awake, alert, oriented in 3 spheres. He has some mild left field cut with some neglect, but no head or eye deviation. He talks about subjective numbness in the left side of his face, which he thinks is close to his old baseline post AVM surgery. Speech is clear. There may be a slight left upper motor neuron facial asymmetry. There is no real drift to the left arm. He feels that the arm feels a little off in terms of sensation compared to his baseline, but pretty minimal. His main problem seems to be the leg, which he claims is significantly numb than it had been following his stroke and vascular surgery, but he feels his strength is about the same. He has a clear cut extensor toe sign on the left and upper motor neuron foot drop, no real atrophy or fasciculations, brisk reflexes in the left leg, more in the arm and right-sided findings are absolutely normal. There is no parkinsonian features, tremor, tics, choreiform activity, etc. I discussed his case with Dr. Nelson. At this point, it is still not clear whether he might have had a second vascular event, perhaps deep in the right thalamus and unrelated to his old area of infarction/hemorrhage/resection. I have suggested we do a noncontrast MRI tomorrow to be sure that the infarction does not show up later, which it can and I have also suggested we try to get some form of imaging of his intracranial vasculature, so we would have a new baseline on our current computer system and can document once in for all that he does or does not not have any residual AV malformation on the right hemisphere. I will check back with him tomorrow. For now, I would not do anything else other than perhaps add some Plavix to the regimen on the assumption that he has had a small completed event as clinically the history would certainly suggest this. UNITED HEALTH SERVICESQasim
[2019-01-27] MEDS ORDERED: MELOXICAM 7.5 MG TAB PO PRN (13:07)
[2019-01-27] MEDS: hydroCHLOROthiazide 25 MG TAB PO SCH (14:48)
--- NOTE | 2019-01-27 19:46 | Hospitalist Progress Note ---
Date of Service January 27, 2019 Assessment & Plan (1) TIA (transient ischemic attack): symptom has improved D/w Dr Lenz : MRI of brain shows no evidence of acute CVA given hx of prior AVM and intracranial hge on rt sided ordered for MRA of brain pt Presented with transient weakness/numbness of left side of face, left neck, left shoulder, left lower extremity Symptoms has resolved after arrival to ER CT head noncontrast shows no acute change pt is continued with aspirin 81 mg daily ( takes at home ) carotid Doppler-no carotid stenosis / echo : no evidence of cardiac thrombus - done as part of the stroke workup Neurology consult requested-appreciate input (2) Left sided numbness: Has chronic left-sided numbness/weakness after right-sided craniotomy Developed worsening of symptoms in the morning Most of the symptom has resolved after arrival to ER ordered for PT/OT (3) History of brain surgery: 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 Mendoza, leading to residual left-sided weakness and left-sided foot drop MRA of brain will be ordered for evaluation of [place] (4) DM type 2 (diabetes mellitus, type 2): Diet controlled, not on any meds (5) GERD (gastroesophageal reflux disease): Continue PPI (6) Prostate cancer: (7) Foot drop, left: Secondary to prior right sided craniotomy, uses brace Ordered for PT OT eval (8) Hypertension: Blood pressure stable, cont out pt meds (9) Lumbar stenosis with neurogenic claudication: Has chronic back pain, status post lumbar decompression surgery done by Dr Shah Continue on Lyrica PT OT eval requested (10) CKD (chronic kidney disease), stage III: Creatinine at approximate baseline CODE STATUS: Full code DVT prophylaxis: SCD and teds, ambulate Disposition: Expected to be discharged home when medically stable Medicine follow-up with Dr. Rudd at [facility] Subjective having occational neck pain still has numbness of left arm , improved weakness of left leg no headache or change in vision vitals stable Physical Exam Constitutional: WD/WN, vitals as above well developed; no acute distress Eyes: PERRL, conjunctivae normal, anicteric sclerae ENMT: external ear and nose normal, oropharynx normal Neck: trachea midline, no thyromegaly Respiratory: normal respiratory effort, lungs clear to auscultation Cardiovascular: RRR, no murmur, no edema Gastrointestinal (Abdomen): normal bowel sounds, soft, nontender, no hepatosplenomegaly Musculoskeletal: Extremities: + limited ROM of extremities (Left shoulder joint/left ankle has left foot drop) Skin: no rashes, warm and dry Neurologic: PERRL, EOMI, accommodation nl, no face palsy, no dysarthria moves all extremities Psychiatric: A+Ox3, euthymic affect Results & Data Vital Signs (Past 12 Hours) Vital Signs Temp Pulse Pulse Resp BP Pulse Ox 01/27/19 19:09 71 01/27/19 15:55 36.9 C 80 18 125/73 92 01/27/19 11:00 36.5 C 73 19 151/82 H 93
[2019-01-27] MEDS: ASPIRIN 81 MG ECTAB PO SCH (21:00)
[2019-01-28 06:14] LABS: BUN Creatinine Ratio 16.4 (10-20); Creatinine Clr Calc Pharmacy 66.2 ml/min; Est GFR (African American) 62.4; Est GFR (Non-African American) 53.9; Potassium 3.9 mmol/L (3.5-5.1)
[2019-01-28 06:38] LABS: Estimated Average Glucose 192 mg/dl; Hemoglobin A1C 8.3 % (4.5-5.6)
[2019-01-28] MEDS: PREGABALIN 50 MG CAP PO SCH (09:01)
[2019-01-28] MEDS: TAMSULOSIN HCL 0.4 MG CAP PO SCH (09:01)
[2019-01-28] MEDS: PANTOprazole 40 MG TAB PO SCH (09:01)
[2019-01-28] MEDS: OLMESARTAN MEDOXOMIL 20 MG TAB PO SCH (09:01)
[2019-01-28] MEDS: hydroCHLOROthiazide 25 MG TAB PO SCH (09:01)
--- NOTE | 2019-01-28 10:15 | Magnetic Resonance Report ---
MR angio head wo con HISTORY: Vascular malformation hx of AVM intracranial Hge TECHNIQUE: 3-D [id number] MRA of the brain was performed without contrast. COMPARISON STUDY: None. FINDINGS: The left vertebral artery shows occlusion and/or near complete occlusion. There is partial collateral reconstitution medially proximal to its juncture with the basilar. Right posterior communi cating artery is patent. Anterior cerebral circulation is fed exclusively from the right carotid circ ulation. This can be an anatomic variation. Minimal intracranial scattered atherosclerotic change. No evidence for a high-grade stenotic process. IMPRESSION: 1. 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 2. Right posterior communicating artery is patent with anterior cerebrals fed exclusively from the ri ght carotid circulation. 3. Mild scattered plaque formation throughout all major intracranial vessels with no evidence for an additional high-grade stenotic process. The above report was generated using voice recognition software. It may contain grammatical, syntax or spelling errors. Electronically signed by: Giorgio Garcia M.D. 01/28/2019 10:13 AM
[2019-01-28] MEDS ORDERED: CLOPIDOGREL BISULFATE 75 MG TAB PO SCH (11:30)
--- NOTE | 2019-01-28 13:51 | Neurology Progress Note ---
Date of Service January 28, 2019 Assessment & Plan (1) TIA (transient ischemic attack): 1. CTA head pending for further visualization of left vertebral artery 2. continue aspirin 81 mg plavix 75 mg daily for a life time 3. PT/OT for discharge needs. 4. optimize HTN, HDL, DM LDL <70 5. medical management per primary team 6. vascular consult if amenable to surgical consideration 7. discharge when medially stable follow up with Dr Mendoza as outpatient for any further recommendations Supervising Physician Co-Signing Physician Notes I have seen and discussed above patient with Dr Alex Lenz, neurology I saw Mr. Guzman in follow-up today, reviewed his imaging studies, discussed the case with Charlette Jackson PA-C and with [facility] attending physician Subjectively he is back to his baseline thinks the left leg is essentially back to normal and the left face and arm are suffering from the sensory loss that he had following his right hemisphere AVM surgery years ago RI has shown no evidence function specifically 100 involving the right thalamus but the MRA has shown a occluded left vertebral artery of unknown duration. We attempted to go through available past records and could find no evidence for any vascular studies of the extracranial system in the past although I am sure they probably were done He is getting a CTA of the cervical vessels to define the anatomy further but frankly I suspect this is long-standing and incidental finding and absolutely unrelated to any of his symptoms. He does have left neck pain but is most unusual for vertebral artery to be associated with pain lesser elements of the dissection and certainly the CTA will delineate that Clinically his pain is localized to the trapezius muscle and is more likely triggered by his known cervical degenerative disc disease than anything with the vertebral artery If this vertebral were symptomatic he may well have left facial numbness but then he would have contralateral right upper and right lower extremity sensory loss in the MRI would have shown something in the left lateral medullary area which it does not If the vertebral artery is occluded and it looks like a long-standing atheromatous process and there is very little in my opinion that vascular surgery would offer that would not consult him in this particular case If the vertebral artery appears to have a dissection yet there is no flow thro ugh it and the treatment would be antiplatelet drugs and a repeat angiogram in 3-6 months He can be discharged if indeed the vertebral artery does not show a dissection but rather a chronic occlusion Alex Bland is a 73 year old male with PMH DM2 diabetes, history of prostate cancer, chronic back pain for lumbar DJD, cervical radiculopathy, GERD, ICH on R AVM requiring craniotomy [address] Mendoza , chronic left-sided weakness, foot drop due to ICH, HTN. He states he was having worsening of numbness, weakness on his left extremity and numbness on left side of face, tingling numbness radiating to left side of neck to back and left shoulder, worsening of numbness of left arm and left leg, left eyelid droop He had some trouble articulating initially, which was resolved by the time he arrived to ER. Today he feels he is back to his baseline strength but he is still having pain in his neck and shoulder and numbness. denies CP, SOB, abdominal pain, vision changes, headache, N, V. Physical Exam Physical Exam: Gen: alert NAD lungs CTA CV RRR left shoulder pain with palpation of trapezius muscle no pronator drift biceps tricpes hand general internist and physician leader 5/5 bilaterally hip flex 5/5 bilaterally left foot extensor 0/5 Results & Data Vital Signs (Past 12 Hours) Vital Signs Temp Pulse Resp BP Pulse Ox 01/28/19 08:54 36.7 C 78 18 107/73 92 Laboratory Results Abnormal lab results 01/26/19 01/28/19 Range/Units 11:02 05:24 BUN 21 H (7-18) mg/dl Glucose 182 H (70-99) mg/dl Hemoglobin A1c 8.3 H (4.5-5.6) % Diagnostic Findings CTA neck pending
[2019-01-28] MEDS ORDERED: OPTIRAY 320 125ml IV PRN (15:29)
--- NOTE | 2019-01-28 15:44 | CT Scan Report ---
NECK CTA HISTORY: Abnormal brain MRI. left vertebral artery occlusion TECHNIQUE: Multiaxial CT images of the neck were performed following the intravenous administration o f contrast to evaluate the major cervical vessels. Maximum intensity projection images were also obta ined. All measurements were calculated based on NASCET criteria. A dose lowering technique was utili zed adhering to the principles of ALARA. COMPARISON STUDY: Carotid Doppler study 08/22/2015. FINDINGS: The aortic arch and proximal great vessels are widely patent. There is no significant sten osis, occlusion, or dissection identified within the bilateral common carotid, internal carotid, or v ertebral arteries. Multinodular thyroid goiter is again noted. Dominant nodule measures 2.4 cm within the left lobe. Mild mucosal thickening within the maxillary sinuses. The left vertebral artery is hy poplastic in comparison to the right IMPRESSION: No significant stenosis, occlusion, or dissection identified within the carotid or vertebral arteries . Specifically, the left vertebral artery is hypoplastic but patent. Electronically signed by: River Das M.D. 01/28/2019 3:42 PM
[2019-01-28] MEDS ORDERED: STROKE PATIENT DISCHARGE STA (16:35)
[2019-01-28 16:36] VITALS: PULSE 81; TEMP 97.9; O2SAT 93
--- NOTE | 2019-01-28 16:41 | Discharge Summary ---
Date of Service January 28, 2019 Admission HPI Per Admitting Provider This is a 73-year-old male with past medical history of type 2 diabetes, not on any meds, history of prostate cancer, history of chronic back pain for lumbar DJD, history of cervical radiculopathy, GERD, history of intracranial hemorrhage on right side secondary to AVM requiring craniotomy, chronic left-sided weakness, foot drop secondary to intracranial hemorrhage, hypertension Came to [facility] ER this morning, with a complaint of feeling of worsening of numbness, weakness on his left extremity Woke up this morning, with feeling of numbness on left side of face, tingling numbness radiating to left side of neck to back and left shoulder, worsening of numbness of left arm and left leg Also noted to have left eyelid droop, No headache, no blurred vision, Had trouble articulating initially, which was resolved by the time he arrived to ER Patient had prior history of spontaneous intracranial hemorrhage requiring craniotomy on the right side, has chronic weakness on the left including left foot drop Is presenting symptoms is a different, and worsening from his chronic weakness which caused him to be alarmed CT head without contrast done in the ER: Showed Postcraniotomy changes in the right with underlying encephalomalacia. No acute intracranial findings Patient will be observed in telemetry for further stroke workup Principal Diagnosis TIA Discharge Exam Constitutional WD/WN, vitals as above well developed; no acute distress Eyes PERRL, conjunctivae normal, anicteric sclerae ENMT external ear and nose normal, oropharynx normal Neck trachea midline, no thyromegaly Respiratory normal respiratory effort, lungs clear to auscultation Cardiovascular RRR, no murmur, no edema Gastrointestinal (Abdomen) normal bowel sounds, soft, nontender, no hepatosplenomegaly Musculoskeletal Extremities: + limited ROM of extremities (Left shoulder joint/left ankle has left foot drop) Skin no rashes, warm and dry Neurologic PERRL, EOMI, accommodation nl, no face palsy, no dysarthria moves all extremities Psychiatric A+Ox3, euthymic affect Discharge Data Allergies Allergy/AdvReac Type Severity Reaction Status Date / Time adhesive Allergy Mild RASH Verified 01/26/19 11:56 meloxicam Allergy Mild rash Verified 01/26/19 11:56 benazepril Allergy Unknown rash Verified 01/26/19 11:56 Cipro Allergy Unknown rash Unverified 10/06/16 09:59 ciprofloxacin Allergy Unknown rash Verified 01/26/19 11:56 Influenza Virus Vaccines Allergy Unknown rash, sick Verified 01/26/19 11:56 latex Allergy Unknown RASH, Verified 01/26/19 11:56 ITCHY, HIVES lubiprostone Allergy Unknown UNKNOWN Verified 01/26/19 11:56 yellow dye Allergy Unknown UNKNOWN Verified 01/26/19 11:56 tolterodine AdvReac Mild BREASTS Verified 01/26/19 11:56 SWELL AND HURT Consultations 01/26/19 14:07 ED Decision to Admit Stat 01/26/19 16:03 Consult Case Management - Discharge Planning Routine Consult Neurology Routine Consult Neurology Routine Ordered Studies 01/26/19 11:27 CT head/brain wo con Stat 01/26/19 16:03 MR brain wo/w con Routine US carotid doppler BI Routine 01/26/19 16:30 CT cervical spine wo con Routine 01/28/19 06:05 MR angio head wo con Routine 01/28/19 13:12 CT angio neck with con Urgent Hospital Course (1) TIA (transient ischemic attack): symptom has improved D/w Dr Lenz : MRI of brain shows no evidence of acute CVA given hx of prior AVM and intracranial hge on rt sided ordered for MRA of brain: Shows occlusion of left vertebral artery CT angiogram of neck ordered, shows hypoplastic left vertebral artery with no occlusion noted pt Presented with transient weakness/numbness of left side of face, left neck, left shoulder, left lower extremity Symptoms has resolved after arrival to ER CT head noncontrast shows no acute change pt is continued with aspirin 81 mg daily ( takes at home ) Added Plavix carotid Doppler-no carotid stenosis / echo : no evidence of cardiac thrombus - done as part of the stroke workup Neurology consult requested-appreciate input Patient will be continued with aspirin and Plavix lifelong Stable to be discharged home, no further neurological workup needed Patient is asked to avoid NSAIDs, discontinue Mobic, avoid Aleve, naproxen, ibuprofen Advil, high risk for GI bleed with combination dual antiplatelets (2) Left sided numbness: Has chronic left-sided numbness/weakness after right-sided craniotomy Developed worsening of symptoms in the morning Most of the symptom has resolved after arrival to ER Patient is found to be independent, ambulatory, chronic left-sided weakness, No loss of balance, stable to be discharged home (3) History of brain surgery: History of spontaneous brain hemorrhage in 2009 secondary to AVM Status post right lobe craniotomy and parietal [place] [address] Mendoza, leading to residual left-sided weakness and left-sided foot drop MRA of brain : Suggestive of left vertebral artery occlusion Confirmatory test with CTA angiogram of the neck shows hypoplastic left vertebral artery with no occlusion, widely patent Patient will be discharged home Will be taking aspirin and Plavix lifelong (4) DM type 2 (diabetes mellitus, type 2): Diet controlled, not on any meds (5) GERD (gastroesophageal reflux disease): Continue PPI (6) Prostate cancer: (7) Foot drop, left: Secondary to prior right sided craniotomy, uses brace (8) Hypertension: Blood pressure stable, cont out pt meds (9) Lumbar stenosis with neurogenic claudication: Has chronic back pain, status post lumbar decompression surgery done by Dr Shah Continue on Lyrica (10) CKD (chronic kidney disease), stage III: Creatinine at approximate baseline CODE STATUS: Full code DVT prophylaxis: SCD and teds, ambulate Stable to be discharged home today Medicine follow-up with Dr. Rudd at [facility] Total Time Total Time Spent Total Time Spent (In Minutes): Approximately 40 minutes Total Time Includes: Examination of the Patient, Discharge Planning and Medication Reconciliation Discharge Plan Discharge Items Patient Disposition: Home - Self-Care Reason For Visit: LEFT ARM NUMBNESS Discharge Diagnosis: TIA Discharge Goals: Decrease discomfort Activity: Resume your previous activity Non-emergency contact: Primary Care Provider Call non-emergency contact if: you have any medication questions Follow-up/Referrals: Tung Villagran MD [Primary Care Provider] - 02/01/19 10:25 am Diet: Heart Healthy Addtl Provider Instructions: HOSPITAL FOLLOW UP WITH DR VILLAGRAN ON Monday02/01/19 @ 10: 25 AM TAKE ASPIRIN AND PLAVIX AFTER BIGGEST MEAL OF THE DAY PLEASE NOTIFY DR VILLAGRAN WITH ANY DARK /BLACK STOOL -USUALLY SIGN OF BLEEDING IN STOMACH WHILE TAKING ASPIRIN AND PLAVIX Prescriptions: New clopidogrel [Plavix] 75 mg tablet 75 mg PO DAILY Qty: 30 RF: 3 Continued aspirin [Aspir-81] 81 mg Tablet,Delayed Release (Dr/Ec) 81 mg PO HS RF: 0 tamsulosin 0.4 mg Capsule 0.4 mg PO QAM RF: 0 olmesartan [Benicar] 20 mg Tablet 20 mg PO QAM RF: 0 omeprazole 20 mg Tablet,Delayed Release (Dr/Ec) 20 mg PO QAM RF: 0 Metamucil Sugar-Free (aspart) 3.4 gram/5.8 gram Powder 1 dose PO QPM RF: 0 Lyrica 50 mg capsule 50 mg PO DIRECTED RF: 0 hydrochlorothiazide 25 mg tablet PO DAILY RF: 0 triamterene-hydrochlorothiazid 37.5-25 mg capsule PO UNKNOWN RF: 0 Stand-Alone Forms: Medications to Prevent Stroke, [facility] Discharge Orders: Discharge Order (Routine); Ordered 01/28/19 Ordered By: Elizabeth Nelson Admission Data Admit Date/Time: 01/27/19 19:41 Attending Provider: Elizabeth Nelson Admit Provider: Elizabeth Nelson Primary Care Provider: Tung Villagran Other Providers: Alex Lenz ; Elizabeth Nelson ; Charlette Jackson ; Charlette Collins ; Zaki Sarkar ; Bryon Mccormick Service: Telemetry Medical Other Interventions: Discharge Summary Assessment (RN) Last Done: 01/28/19 16:42 DC Date/Time DO NOT enter until pt leaves facility: 01/28/19 17:50
[2019-01-28 16:45] VITALS: BP 116/81
--- NOTE | 2019-01-28 17:17 | Pharmacy Report ---
Pharmacist Stroke Counseling - Date of Service January 28, 2019 - Scope: Pharmacy has been consulted to provide medication discharge counseling for this patient admitted with transient ischemic attack as per the Pharmacist Discharge Counseling for Stroke Patients Protocol. - Medications on Discharge: Home Medications Medication Instructions Recorded Confirmed Metamucil Sugar-Free (aspart) 1 dose PO QPM 06/25/18 01/26/19 aspirin [Aspir-81] 81 mg PO HS 06/25/18 01/26/19 olmesartan [Benicar] 20 mg PO QAM 06/25/18 01/26/19 omeprazole 20 mg PO QAM 06/25/18 01/26/19 tamsulosin 0.4 mg PO QAM 06/25/18 01/26/19 Lyrica 50 mg PO DIRECTED 01/26/19 01/26/19 hydrochlorothiazide 0 mg PO DAILY 01/26/19 01/26/19 triamterene-hydrochlorothiazid 0 mg PO UNKNOWN 01/26/19 01/26/19 New Rx's Medication Instructions Recorded clopidogrel [Plavix] 75 mg PO DAILY #30 tab 01/28/19 - Action: The above medications, specifically ones for stroke treatment/prophylaxis, have been reviewed in detail with the patient and/or patient fraud representative(s) prior to discharge. This includes indication, common adverse reactions, drug interactions, and medication administration. Medication counseling has been employed using the teach-back method to ensure understanding. - Outcome: The patient and/or patient fraud representative(s) have demonstrated understanding of the medications. Please note, they are aware that the pharmacist will call them within 72 hours post-discharge to confirm that the appropriate medications are being taken and answer any further medication related questions the patient might have at that time. Contact information Individual to be contacted: Baldo Guzman Relationship to patient (if applicable): self Phone number: [phone] Best time to call: 10am - 9pm Additional comments: Mr. Guzman is very pleasant. He demonstrated understanding of his medication regimen. He was instructed to begin the Plavix in addition to his ASA 81mg daily and to discontinue the use of his Meloxicam. Thank you for allowing pharmacy to be involved in the care of this patient. Please call [phone] or [phone] with any additional questions
--- NOTE | 2019-01-31 10:28 | Pharmacy Report ---
Pharmacist Post D/C Phone Note - Phone Note: Date of phone call: January 31, 2019. Individual with whom pharmacist spoke to: JERRY MENENDEZ The following questions were reviewed during the phone call with responses listed below each: Can you tell me the medications that you are currently taking as well as when and how you take each medication? -See Table Below When have you missed any doses of your medications? - None What side effects are you having from your medications, specifically, the new medications you were started on? - None What questions do you have about your medications? - None What problems are you having obtaining your medications? - None When is your next appointment with your primary care doctor? - Dr Tung Durham tomorrow 02/01 at 10am Additional comments: - Patient had a tooth extracted on Monday after discharge and has been feeling much better after having that procedure done. - Reviewed patient's other medications, he is still taking omeprazole 20mg daily for reflux. Educated patient on drug-drug interaction and possible decrease in effectiveness of clopidogrel with omeprazole. Patient is going to address with Dr Durham tomorrow at appointment. I also called Dr Durham's office and spoke with RN, she is leaving Dr Durham a note to change to different PPI or H2 ayad to minimize possibility of interaction. As per the Pharmacist Discharge Counseling for Stroke Patients Protocol, this phone call has been completed within 72 hours of discharge. Thank you for allowing us to be involved in the care of this patient. - Home Medications: Home Medications Medication Instructions Recorded Confirmed Metamucil Sugar-Free (aspart) 1 dose PO QPM 06/25/18 01/26/19 aspirin [Aspir-81] 81 mg PO HS 06/25/18 01/26/19 olmesartan [Benicar] 20 mg PO QAM 06/25/18 01/26/19 omeprazole 20 mg PO QAM 06/25/18 01/26/19 tamsulosin 0.4 mg PO QAM 06/25/18 01/26/19 Lyrica 50 mg PO DIRECTED 01/26/19 01/26/19 hydrochlorothiazide 0 mg PO DAILY 01/26/19 01/26/19 triamterene-hydrochlorothiazid 0 mg PO UNKNOWN 01/26/19 01/26/19 New Rx's Medication Instructions Recorded clopidogrel [Plavix] 75 mg PO DAILY #30 tab 01/28/19
== END 2019-01-28 17:50 | disposition home or self-care (01) | DRG 69 ==
LOC: 2N 10:45 → ED 10:45 → 2N 15:18

== ENCOUNTER 2020-08-29 09:05 | Inpatient (IN) ==
--- OUTSIDE RECORDS SUMMARY | 2020-08-29 09:09 | External Medical Summary | Continuity of Care Document ---
:1945 Author Name Deanna Casey, Provider Address Unavailable Unavailable , Care Team Providers Name Role Phone Isabelle Casey, Edilberto Link Unavailable [email or web address] Lalit Casey Unavailable [email or web address] [place] PHIPPS Unavailable [email or web address] Dioni Casey Unavailable [email or web address] Mason PHIPPS Unavailable [email or web address] Sung VILLAGRAN Unavailable Unavailable Unavailable Unavailable Unavailable Problems 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) Prostate cancer (185) (C61) Dysphagia (787.20) (R13.10) Peripheral neuropathy (356.9) (G62.9) Esophageal dyskinesia (530.5) (K22.4) Allergic reaction (995.3) (T78.40XA) Impaired fasting glucose (790.21) (R73.01) Dysmetabolic syndrome X (277.7) (E88.81) Tubular adenoma of colon (211.3) (D12.6) Vertigo (780.4) (R42) Osteoarthritis (715.90) Left Leg Weakness 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 Mass Lesion In The Parietal Lobe (239.6) Benign prostatic hypertrophy with urinary obstruction (600.0 1) (N40.1) Acute pharyngitis (462) (J02.9) Hyperglycemia (790.29) (R73.9) Vitamin D deficiency (268.9) (E55.9) Frequent urination at night (788.43) (R35.1) Esophageal reflux (530.81) (K21.9) 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) Lumbosacral radiculopathy at L4 (724.4) (M54.17) Tinea cruris (110.3) (B35.6) Adenocarcinoma of prostate (185) (C61) Polymyalgia rheumatica (725) (M35.3) Disc degeneration, lumbar (722.52) (M51.36) Neoplasm of prostate (239.5) (D49.59) Prostatitis (601.9) (N41.9) Oral thrush (112.0) (B37.0) Herpes zoster (053.9) (B02.9) Hiatal hernia (553.3) (K44.9) Degeneration of cervical intervertebral disc (722.4) (M50.30 ) Allergies and Adverse Reactions Ciprofloxacin HCl TABS (Allergy) Detrol TABS (Allergy) Influenza Virus Vaccine Whole (Allergy) Lotensin TABS (Allergy) Latex (Allergy) Tape (Allergy) Medications Vitamin D (Ergocalciferol) 1.25 MG (5000 0 UT) Oral Capsule; TAKE 1 CAPSULE Weekly DESIRE Floyd Start: 08-May-2011 Quantity: 16 Refills: 0 Benicar 20 MG Oral Tablet; TAKE 1 TABLET EVERY MORNING Jacinto Walton Start: 04-Jan-2012 Quantity: 90 Refills: 2 Omeprazole 20 MG Oral Capsule Delayed Re lease; TAKE ONE CAPSULE BY MOUTH EVERY DAY DESIRE Floyd Start: 09-Nov-2011 Quantity: 100 Refills: 3 Ergocalciferol 1.25 MG (32851 UT) Oral Capsule; TAKE 1 CAPSULE Weekly DESIRE Floyd Start: 17-Oct-2014 Quantity: 16 Refills: 2 Gabapentin 600 MG Oral Tablet; TAKE 1 TABLET 4 TIMES D Jacinto Ingram Start: 26-Aug-2013 Quantity: 360 Refills: 3 Gabapentin 600 MG Oral Tablet; TAKE 1 TABLET Every 6 hours DESIRE Pierre Start: 15-Apr-2013 Quantity: 400 Refills: 0 Fluocinonide 0.05 % External Cream; APPL Y SPARINGLY TO AFFECTED AREA(S) TWICE DAILY Jacinto Walton Start: 03-Dec-2012 Quantity: 1 60 GM Tube Refills: 11 Tamsulosin HCl - 0.4 MG Oral Capsule; TAKE 1 CAPSULE Daily Start: 13-Nov-2012 Refills: 0 HYDROcodone-Acetaminophen 10-325 MG Oral Tablet; TAKE 1 TO 2 TABLETS EVERY 4 TO 6 HOURS NEEDED FOR PAIN Jacinto Walton Start: 05-Nov-2012 Quantity: 200 Refills: 3 Procedures History of Breast Surgery Lumpectomy Sta tus: Completed History of Interruption Inferior Vena Cava Status: Completed Mateusz Filter Placement History of Laminectomy Lumbar Status: Co mpleted History of Craniotomy Supratentorial Excision Of Status: Completed 14-Nov-2008 0:00 Brain Tumor Immunizations Zostavax 56733 UNT/0.65ML Subcutaneous Solution Recons tituted On: 15-Nov-2011 11:06 Lot #: [id number], [employer] Family History Mother Family history of Colon Cancer (V16.0) Status: Active Brother Family history of Heart Disease (V17.49) Status: Active Family history of Prostate Cancer (V16.42) Status: Active Family history of Malignant Neoplasm Of The Prostate [place] (V16.42) Status: Active Father Family history of Heart Disease (V17.49) Status: Active Unknown Family Member Family history of Heart Disease (V17.49) Status: Active Comments: Family History Family history of Colon Cancer (V16.0) Status: Active C omments: Family History Family history of Father At Age ___ Status: Active Comments: Family History Family history of Mother At Age ___ Status: Active Comments: Family History Social History - Smoking Status Ex-smoker Recorded: Oct-1982 Tobacco smoking consumption unknown Plan of Treatment Planned Observations Planned Goals not documented Results No Known Results Results not documented
[2020-08-29 09:34] LABS: Basophils # (auto) 0.02 K/uL (0-0.2); Basophils % (auto) 0.2 %; Eosinophils # (auto) 0.05 K/uL (0-0.5); Eosinophils % (auto) 0.5 %; Hematocrit (blood only) 48.2 % (42-52); Hemoglobin 16.6 g/dL (14.0-18.0); Immature Granulocytes # (auto) 0.02 K/uL (0.00-0.02); Immature Granulocytes % (auto) 0.2 %; Lymphocytes # (auto) 2.95 K/uL (1.2-3.4); Lymphocytes % (auto) 29.2 %; Mean Corpuscular Hemoglobin 30.6 pg (25-34); Mean Corpuscular Hgb Conc 34.4 g/dL (32-36); Mean Corpuscular Volume 88.9 fL (80-100); Mean Platelet Volume 9.3 fL (7.4-10.4); Monocytes # (auto) 0.91 K/uL (0.11-0.59); Neutrophils # (auto) 6.16 K/uL (1.4-6.5); Neutrophils % (auto) 60.9 %; Platelet Count 258 K/uL (130-400); RDW Coefficient of Variation 13.6 % (11.5-14.5); Red Blood Count 5.42 M/uL (4.7-6.1); White Blood Count 10.11 K/uL (4.8-10.8)
--- NOTE | 2020-08-29 09:39 | Emergency Department Note ---
Impression & Plan Acute left-sided weakness, Foot drop, left ED Provider Note NAME: JERRY MENENDEZ AGE: 75 SEX: M : 1945 ARRIVES VIA: Ambulance INFORMANT: Patient, ED PROVIDER(S): Csatro Ritter DO CHIEF COMPLAINT: Left sided weakness HPI: The patient is a 75-year-old male who presented to the emergency department for an evaluation of left-sided weakness. The patient states that he has had a craniotomy in the past by neurosurgery at our facility. He states that ever since that time he has had left leg and left arm weakness. He states that over the last week he has been having difficulty ambulating because of severe weakness in his left leg. He states the weakness has become worse over the last 24 hours. He has fallen multiple times because of this left lower extremity weakness. He states that he does have some left upper and left lower extremity weakness from his surgery but over the last week his left leg is significantly weaker than previous. He also states that he has chronic low back pain but at the time he has no back pain currently. He has no problems with movement of his back. He denies having any headache. He does state that he is fallen multiple times but states he has no hip or pelvic pain. He denies having any chest pain or difficulty breathing. He has not seen his family doctor for the symptoms. ROS: See above HPI for pertinent positives & negatives. A total of 10 systems reviewed and were otherwise negative. PAST MEDICAL HISTORY: See Below PAST SURGICAL HISTORY: See Below FAMILY HISTORY: See Below SOCIAL HISTORY: See Below HOME MEDICATIONS: See Below ALLERGIES: See Below VITALS: See Below PHYSICAL EXAMINATION: GENERAL: Patient is awake alert in no acute distress patient is resting comfortably and showing no signs of anxiety EYES: The conjunctivae are clear. The pupils are round and reactive. EARS, NOSE, MOUTH AND THROAT: The nose is without any evidence of any deformity. Mucous membranes are moist. Tongue is midline. NECK: The neck is nontender and supple. RESPIRATORY: Normal respiratory effort is noted there is no evidence of wheezing rhonchi or rales CARDIOVASCULAR: Regular rate and rhythm noted there no murmurs rubs or gallops normal S1 normal S2. GASTROINTESTINAL: The abdomen is soft. Abdomen is nontender. BACK: No midline tenderness or or step-off noted range of motion in flexion extension as well as rotation no signs of muscle spasm noted MUSCULOSKELETAL/EXTREMITIES: There is no evidence of gross deformity full range of motion is noted in the hips and shoulders. SKIN: There is no obvious evidence of any rash. Trace pedal edema was noted bilaterally. NEUROLOGIC: Patient is awake alert and oriented x3. There is no drift in the upper extremities. There is slight diminished vice president of human resources strength in the left upper extremity compared to the right. The patient is unable to hold the left leg off the bed for greater than 5 seconds. Strength in the right lower extremity appears appropriate. There is no facial droop. MEDICAL DECISION MAKING: The patient is a 75-year-old male who presented to the emergency department for an evaluation of left-sided weakness. The patient states that he started noticing left-sided weakness over the course of the last few days. It became worse over the last 3 days. The patient has been having frequent falls and is fallen multiple times over the last 24 hours because of left-sided weakness. He has not had any nausea or vomiting. He has no headache but he has a history of neurosurgery in the past. He also has left upper extremity weakness which he thinks is not changed compared to previous. He has been having episodes of chronic back pain but at this time has no back pain. I discussed the patient's laboratory and radiographic studies with him. Initially his work-up was geared towards more of a central nervous system cause for his weakness such as an intracranial issue but the patient was not found to have any signs of stroke or vascular abnormality on CT and CT angiography of the head and neck. Because the patient's ongoing symptoms I did discuss his case with the on-call [facility] hospitalist group. They have agreed to evaluate the patient in the emergency department for further management and disposition. Triage Nursing notes reviewed. Prior medical records reviewed Vital Signs: reviewed and remarkable for no significant abnormalities Differential diagnosis: Infection, dehydration, metabolic abnormality, hypo/hyperglycemia, electrolyte disturbance, anemia, hypoxia, cardiac sources, intracerebral event, toxicologic, neurologic, as well as other pathologies. ER treatment provided: See below Diagnostics interpreted by me: ECG: EKG was obtained in the emergency department. My interpretation is normal sinus rhythm at 86 bpm. There was no ectopy. LVH was noted by voltage criteria. This was compared to a tracing from January 29, 2019. No significant changes were noted. Cardiac Monitoring: An order was placed for continuous cardiac monitoring. The monitor shows a rate of 86 bpm with sinus rhythm. Laboratory studies: As stated above and show below. Imaging studies: See below Consultation(s): 1155: I discussed this case with Dr. Steinberg who is on-call for the [facility] hospitalist group. He does recommend we order MRI of the brain and lumbar spine. 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 Diabetes mellitus, type 2 NO MEDS, DIET CONTROLLED GERD (gastroesophageal reflux disease) Hyperlipidemia Hypertension Osteoarthritis Personal history of DVT (deep vein thrombosis) FOLLOWING BRAIN SURGERY ...LEFT LEG DVT - NO CLOTS SINCE Surgical History History of back surgery 2010 LAMINECTOMY History of inferior vena caval filter placement HX JOVANNA FILTER AFTER DVT Hx of brain surgery For cavernous hemangioma Hx of breast surgery X3 FOR FIBROUS TUMORS - BENIGN Hx of colonoscopy Nausea and vomiting after administration of anesthetic agent Family History Mother Family hx of colon cancer Grandmother Family hx of colon cancer Social History Smoking Status: Never smoker Cigarettes Per Day: 1PPD X 24; Hx Alcohol Use: Yes Alcohol type: beer Hx Substance Use: No Preferred Language: Irish Communication Ability: Effective 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 Beliefs That Will Affect Care: None marital status: Current Living Situation: Spouse Feels Safe at Home: Yes Assistive Devices: Walker Allergies Allergies Allergy/AdvReac Type Severity Reaction Status Date / Time adhesive Allergy Mild RASH Verified 08/29/20 10:30 meloxicam Allergy Mild rash Verified 08/29/20 10:30 benazepril Allergy Unknown rash Verified 08/29/20 10:30 Cipro Allergy Unknown rash Unverified 10/06/16 09:59 ciprofloxacin Allergy Unknown rash Verified 08/29/20 10:30 latex Allergy Unknown RASH, Verified 08/29/20 10:30 ITCHY, HIVES lubiprostone Allergy Unknown UNKNOWN Verified 08/29/20 10:30 yellow dye Allergy Unknown UNKNOWN Verified 08/29/20 10:30 tolterodine AdvReac Mild BREASTS Verified 08/29/20 10:30 ORA AND ADWOA Home Meds Home Medications Medication Instructions Recorded Confirmed Metamucil Sugar-Free (aspart) 1 dose PO QPM 06/25/18 08/29/20 tamsulosin 0.4 mg PO QAM 06/25/18 08/29/20 hydrochlorothiazide 25 mg PO QAM 01/26/19 08/29/20 acetaminophen-codeine 1 tab PO Q6H PRN 08/29/20 08/29/20 aspirin 81 mg PO HS 08/29/20 08/29/20 clopidogrel [Plavix] 75 mg PO QAM 08/29/20 08/29/20 cyclobenzaprine 5 mg PO TID PRN 08/29/20 08/29/20 diclofenac sodium 75 mg PO BID 08/29/20 08/29/20 finasteride 5 mg PO QAM 08/29/20 08/29/20 losartan 50 mg PO DAILY 08/29/20 08/29/20 metformin 500 mg PO QAM 08/29/20 08/29/20 pantoprazole 40 mg PO DAILYBB 08/29/20 08/29/20 venlafaxine 37.5 mg PO QAM 08/29/20 08/29/20 Results & Data (ED) Vital Signs Vital Signs - 24 hr 08/29/20 09:02 08/29/20 09:09 08/29/20 09:17 Temperature 36.8 C Temperature Source Oral Pulse Rate 92 H 96 H 93 H Pulse Rate [Apical] 93 H Pulse Rate from SpO2 Sensor 87 92 H Respiratory Rate 13 18 20 Respiratory Effort / Characteristics Non-Labored Spontaneous Respiratory Depth Normal Respiratory Pattern Regular Blood Pressure 144/94 H 144/94 H Blood Pressure [Right Arm] 144/94 H Blood Pressure Mean 112 110 Blood Pressure Mean [Right Arm] 110 Pulse Oximetry 92 94 94 Oxygen Delivery Method Room Air Room Air Sepsis Recent Fever Within 48 Hours No Sepsis New/Unexplained Change in Mental Status No Sepsis Action Taken by Nursing No Action Required 08/29/20 09:30 08/29/20 10:00 08/29/20 10:30 Temperature Temperature Source Pulse Rate 93 H 86 88 Pulse Rate [Apical] Pulse Rate from SpO2 Sensor 85 87 87 Respiratory Rate 20 20 17 Respiratory Effort / Characteristics Respiratory Depth Respiratory Pattern Blood Pressure 126/97 113/81 125/90 Blood Pressure [Right Arm] Blood Pressure Mean 105 91 105 Blood Pressure Mean [Right Arm] Pulse Oximetry 93 95 94 Oxygen Delivery Method Sepsis Recent Fever Within 48 Hours Sepsis New/Unexplained Change in Mental Status Sepsis Action Taken by Nursing 08/29/20 10:57 08/29/20 11:00 08/29/20 11:30 Temperature Temperature Source Pulse Rate 89 91 H 90 Pulse Rate [Apical] Pulse Rate from SpO2 Sensor 89 90 90 Respiratory Rate 20 15 20 Respiratory Effort / Characteristics Respiratory Depth Respiratory Pattern Blood Pressure 130/99 148/91 H 127/68 Blood Pressure [Right Arm] Blood Pressure Mean 114 117 76 Blood Pressure Mean [Right Arm] Pulse Oximetry 97 96 93 Oxygen Delivery Method Sepsis Recent Fever Within 48 Hours Sepsis New/Unexplained Change in Mental Status Sepsis Action Taken by Nursing 08/29/20 12:00 08/29/20 13:50 08/29/20 14:00 Temperature Temperature Source Pulse Rate 92 H 86 86 Pulse Rate [Apical] Pulse Rate from SpO2 Sensor 91 H 87 84 Respiratory Rate 17 13 20 Respiratory Effort / Characteristics Respiratory Depth Respiratory Pattern Blood Pressure 111/77 127/73 127/76 Blood Pressure [Right Arm] Blood Pressure Mean 81 80 80 Blood Pressure Mean [Right Arm] Pulse Oximetry 93 93 93 Oxygen Delivery Method Sepsis Recent Fever Within 48 Hours Sepsis New/Unexplained Change in Mental Status Sepsis Action Taken by Nursing 08/29/20 14:30 08/29/20 15:00 Temperature Temperature Source Pulse Rate 91 H 92 H Pulse Rate [Apical] Pulse Rate from SpO2 Sensor 91 H 91 H Respiratory Rate 20 20 Respiratory Effort / Characteristics Respiratory Depth Respiratory Pattern Blood Pressure 123/80 134/86 Blood Pressure [Right Arm] Blood Pressure Mean 84 104 Blood Pressure Mean [Right Arm] Pulse Oximetry 95 95 Oxygen Delivery Method Sepsis Recent Fever Within 48 Hours Sepsis New/Unexplained Change in Mental Status Sepsis Action Taken by Intermediate Medications Current Medication List: was personally reviewed by me Laboratory Data Attestation: I reviewed the patient's lab results. Result diagrams: 08/29/20 09:22 08/29/20 09:22 Lab Results 08/29/20 08/29/20 08/29/20 Range/Units 09:22 09:22 09:22 WBC 10.11 (4.8-10.8) K/uL RBC 5.42 (4.7-6.1) M/uL Hgb 16.6 (14.0-18.0) g/dL POC Hgb (14.0-18.0) g/dl Hct 48.2 (42-52) % POC Hct (42-52) % MCV 88.9 (80-100) fL MCH 30.6 (25-34) pg MCHC 34.4 (32-36) g/dL RDW Std Deviation 44.0 (36.4-46.3) fL RDW Coeff of [place] 13.6 (11.5-14.5) % Plt Count 258 (130-400) K/uL MPV 9.3 (7.4-10.4) fL Immature Gran % (Auto) 0.2 % Neut % (Auto) 60.9 % Lymph % (Auto) 29.2 % [place] % (Auto) 9.0 % Eos % (Auto) 0.5 % Baso % (Auto) 0.2 % Neut # (Auto) 6.16 (1.4-6.5) K/uL Lymph # (Auto) 2.95 (1.2-3.4) K/uL [place] # (Auto) 0.91 H (0.11-0.59) K/uL Eos # (Auto) 0.05 (0-0.5) K/uL Baso # (Auto) 0.02 (0-0.2) K/uL Immature Gran # (Auto) 0.02 (0.00-0.02) K/uL PT 11.1 (9.0-12.0) Seconds INR 1.1 (0.9-1.1) APTT 25.1 (21.0-31.0) Seconds PTT Ratio 0.9 POC Sodium (135-144) mmol/L Sodium 133 L (136-145) mmol/L POC Potassium (3.3-5.0) mmol/L Potassium 3.3 L (3.5-5.1) mmol/L POC Chloride (101-112) mmol/L Chloride 100 (98-107) mmol/L Carbon Dioxide 24 (21-32) mmol/L POC Total CO2 (24-31) mmol/L Anion Gap 10.0 (3-11) POC Anion Gap (16-25) mmol/L POC BUN (7-18) mg/dl BUN 23 H (7-18) mg/dl Creatinine 1.35 (0.6-1.4) mg/dl POC Creatinine (0.6-1.3) mg/dl Est Cr Clr Drug Dosing 59.2 ml/min Est GFR ( Amer) 58.3 Est GFR (Non-Af Amer) 50.3 BUN/Creatinine Ratio 16.7 (10-20) Glucose 198 H (70-99) mg/dl POC Glucose (other) (70-99) mg/dl Calcium 9.6 (8.5-10.1) mg/dl POC Ioniz Calcium Petey (1.12-1.32) mmol/l Magnesium 1.9 (1.8-2.4) mg/dl Total Bilirubin 0.7 (0.2-1) mg/dl AST 18 (15-37) U/L ALT 36 (12-78) U/L Alkaline Phosphatase 104 (45-117) U/L Total Creatine Kinase 87 (39-308) U/L Troponin I < 0.015 (0-0.045) ng/ml Total Protein 7.7 (6.4-8.2) gm/dl Albumin 3.7 (3.4-5.0) gm/dl Globulin 4.0 (2.5-4.0) gm/dl Albumin/Globulin Ratio 0.9 (0.9-2) TSH 0.997 (0.300-4.500) uIu/ml Urine Color Urine Appearance (Clear) Urine pH (4.5-7.5) Ur Specific [place] (1.000-1.030) Urine Protein (Negative) Urine Glucose (UA) (Negative) Urine Ketones (Negative) Urine Blood (Negative) Urine Nitrite (Negative) Urine Bilirubin (Negative) Urine Urobilinogen (Negative) Ur Leukocyte Esterase (Negative) Urine WBC (Auto) (0-5) /hpf Urine RBC (Auto) (0-4) /hpf U Hyaline Cast (Auto) (0-5) /lpf U Epithel Cells (Auto) (0-5) /lpf Urine Bacteria (Auto) (Negative) 08/29/20 08/29/20 Range/Units 09:31 13:50 WBC (4.8-10.8) K/uL RBC (4.7-6.1) M/uL Hgb (14.0-18.0) g/dL POC Hgb 17.0 (14.0-18.0) g/dl Hct (42-52) % POC Hct 50 (42-52) % MCV (80-100) fL MCH (25-34) pg MCHC (32-36) g/dL RDW Std Deviation (36.4-46.3) fL RDW Coeff of Amaya (11.5-14.5) % Plt Count (130-400) K/uL MPV (7.4-10.4) fL Immature Gran % (Auto) % Neut % (Auto) % Lymph % (Auto) % [place] % (Auto) % Eos % (Auto) % Baso % (Auto) % Neut # (Auto) (1.4-6.5) K/uL Lymph # (Auto) (1.2-3.4) K/uL [place] # (Auto) (0.11-0.59) K/uL Eos # (Auto) (0-0.5) K/uL Baso # (Auto) (0-0.2) K/uL Immature Gran # (Auto) (0.00-0.02) K/uL PT (9.0-12.0) Seconds INR (0.9-1.1) APTT (21.0-31.0) Seconds PTT Ratio POC Sodium 135 (135-144) mmol/L Sodium (136-145) mmol/L POC Potassium 3.3 (3.3-5.0) mmol/L Potassium (3.5-5.1) mmol/L POC Chloride 97 L (101-112) mmol/L Chloride (98-107) mmol/L Carbon Dioxide (21-32) mmol/L POC Total CO2 25 (24-31) mmol/L Anion Gap (3-11) POC Anion Gap 17.0 (16-25) mmol/L POC BUN 23 H (7-18) mg/dl BUN (7-18) mg/dl Creatinine (0.6-1.4) mg/dl POC Creatinine 1.2 (0.6-1.3) mg/dl Est Cr Clr Drug Dosing ml/min Est GFR ( Amer) Est GFR (Non-Af Amer) BUN/Creatinine Ratio (10-20) Glucose (70-99) mg/dl POC Glucose (other) 199 H (70-99) mg/dl Calcium (8.5-10.1) mg/dl POC Ioniz Calcium Petey 1.22 (1.12-1.32) mmol/l Magnesium (1.8-2.4) mg/dl Total Bilirubin (0.2-1) mg/dl AST (15-37) U/L ALT (12-78) U/L Alkaline Phosphatase (45-117) U/L Total Creatine Kinase (39-308) U/L Troponin I (0-0.045) ng/ml Total Protein (6.4-8.2) gm/dl Albumin (3.4-5.0) gm/dl Globulin (2.5-4.0) gm/dl Albumin/Globulin Ratio (0.9-2) TSH (0.300-4.500) uIu/ml Urine Color Yellow Urine Appearance Clear (Clear) Urine pH 7.0 (4.5-7.5) Ur Specific Dowell 1.028 (1.000-1.030) Urine Protein Negative (Negative) Urine Glucose (UA) Negative (Negative) Urine Ketones Negative (Negative) Urine Blood Trace H (Negative) Urine Nitrite Negative (Negative) Urine Bilirubin Negative (Negative) Urine Urobilinogen Negative (Negative) Ur Leukocyte Esterase Negative (Negative) Urine WBC (Auto) 0 (0-5) /hpf Urine RBC (Auto) 0-4 (0-4) /hpf U Hyaline Cast (Auto) 0 (0-5) /lpf U Epithel Cells (Auto) 0-5 (0-5) /lpf Urine Bacteria (Auto) Negative (Negative) Administered Medications Discontinued Medications Ioversol (Optiray 320 125ml) 120 ml IV ONCE ONE Stop: 08/29/20 11:00 Last Admin: 08/29/20 10:59 Dose: 120 ml Documented by: [id number] Imaging Data Radiologist's Impression: Patient: JERRY MENENDEZ Admit Date: 08/29/20 MR#: [id number] Address1: [address] Acct ID:[id number] Address2: Date: [address] [facility] Zip: [place] [address] Age: 75 Location: ED Sex: M Room/Bed: Att Phy: Diagnosis: BILATERAL LEG WEAKNESS Ellen Phy: Tung Greco MD Service Date: 08/29/20 [facility] Phy: Interpreting Phy: River Das MD Admit Phy: Ordering Phy: Castro Ritter DO cc: ~ HEAD & NECK CTA HISTORY: Left lower extremity weakness. TECHNIQUE: Multiaxial CT images of the head were performed following the intravenous administration of contrast to evaluate the major cerebral vessels. Multiaxial CT images of the neck were also performed following the intravenous administration of contrast to evaluate the major cervical vessels. Maximum intensity projection images were also obtained. A dose lowering technique was utilized adhering to the principles of ALARA. COMPARISON: None. FINDINGS: There is no mass, hematoma, midline shift, or acute infarct. Visualized intracranial internal carotid arteries, distal right vertebral artery, and basilar artery are widely patent. There is no significant stenosis, occlusion, or aneurysm seen within the bilateral ACAs, MCAs, or gold frame assembler. Hypoplastic left vertebral artery. There is also severely hypoplastic right P1 segment and left A1 segment. These are likely developmental. Prior right parietal craniotomy is again noted with underlying encephalomalacia. Mild focal narrowing within the distal left vertebral artery. The aortic arch and proximal great vessels are widely patent. There is no significant stenosis, occlusion, or dissection identified within the bilateral common carotid, internal carotid, or vertebral arteries. Groundglass densities within the lung apices may be due to expiratory phase of the study. Multinodular thyroid gland. Dominant nodule within the left lobe measures 2.5 cm. Hypoplastic left vertebral artery in comparison to the right with mild multifocal narrowing at the intracranial portion. IMPRESSION: 1. No significant stenosis, occlusion, or aneurysm within the [place]. 2. No significant stenosis, occlusion, or dissection identified within the carotid or cervical vertebral arteries. 3. Mild multifocal narrowing at the intracranial portion of the distal left vertebral artery. 3. Multinodular thyroid gland. ACT 112: Negative or not required by law. Electronically signed by: River Das M.D. 08/29/2020 11:22 AM Dictated: 08/29/20 1116 Transcribed: 08/29/20 1116 Patient: JERRY MENENDEZ Admit Date: 08/29/20 MR#: [id number] Address1: [address] [place] [address] Acct ID:[id number] Address2: Date: [address] [facility] Zip: [place] [address] Age: 75 Location: ED Sex: M Room/Bed: Att Phy: Diagnosis: BILATERAL LEG WEAKNESS Ellen Phy: Tung Greco MD Service Date: 08/29/20 [facility] Phy: Interpreting Phy: River Das MD Admit Phy: Ordering Phy: Castro Ritter DO cc: ~ HEAD & NECK CTA HISTORY: Left lower extremity weakness. TECHNIQUE: Multiaxial CT images of the head were performed following the intravenous administration of contrast to evaluate the major cerebral vessels. Multiaxial CT images of the neck were also performed following the intravenous administration of contrast to evaluate the major cervical vessels. Maximum intensity projection images were also obtained. A dose lowering technique was utilized adhering to the principles of ALARA. COMPARISON: None. FINDINGS: There is no mass, hematoma, midline shift, or acute infarct. Visualized intracranial internal carotid arteries, distal right vertebral artery, and basilar artery are widely patent. There is no significant stenosis, occlusion, or aneurysm seen within the bilateral ACAs, MCAs, or gold frame assembler. Hypoplastic left vertebral artery. There is also severely hypoplastic right P1 segment and left A1 segment. These are likely developmental. Prior right parietal craniotomy is again noted with underlying encephalomalacia. Mild focal narrowing within the distal left vertebral artery. The aortic arch and proximal great vessels are widely patent. There is no significant stenosis, occlusion, or dissection identified within the bilateral common carotid, internal carotid, or vertebral arteries. Groundglass densities within the lung apices may be due to expiratory phase of the study. Multinodular thyroid gland. Dominant nodule within the left lobe measures 2.5 cm. Hypoplastic left vertebral artery in comparison to the right with mild multifocal narrowing at the intracranial portion. IMPRESSION: 1. No significant stenosis, occlusion, or aneurysm within the [place]. 2. No significant stenosis, occlusion, or dissection identified within the carotid or cervical vertebral arteries. 3. Mild multifocal narrowing at the intracranial portion of the distal left vertebral artery. 3. Multinodular thyroid gland. ACT 112: Negative or not required by law. Electronically signed by: River Das M.D. 08/29/2020 11:22 AM Dictated: 08/29/20 1116 Transcribed: 08/29/20 1116 Patient: JERRY MENENDEZ Admit Date: 08/29/20 MR#: [id number] Address1: [address] Acct ID:[id number] Address2: Date: [address] [facility] Zip: [place] [address] Age: 75 Location: ED Sex: M Room/Bed: Att Phy: Diagnosis: BILATERAL LEG WEAKNESS Ellen Phy: Tung Greco MD Service Date: 08/29/20 Fam Phy: Interpreting Phy: River Das MD Admit Phy: Ordering Phy: Castro Ritter DO cc: ~ HEAD CT NONCONTRAST CT DOSE: 1368.76 mGy.cm HISTORY: Left lower extremity weakness. TECHNIQUE: Multiaxial CT images of the head were performed without the use of intravenous contrast. Automated exposure control was utilized for this study. A dose lowering technique was utilized adhering to the principles of ALARA. Comparison: Head CT 01/26/2019. Findings: Small retention cyst within the right maxillary sinus. The mastoid air cells are clear. Postoperative changes consistent with prior right parietal cran iotomy with underlying right parietal lobe encephalomalacia. This remains unchanged. Stable 5 mm hyperdense extra-axial nodule within the right parietal region on image 18. This favors a small meningioma and is likely benign. Moderate atrophic changes are again noted. There is no hematoma, midline shift, acute infarct. Impression: No significant change compared to the prior study. No acute intracranial abnormality. ACT 112: Negative or not required by law. Electronically signed by: River Das M.D. 08/29/2020 11:00 AM Dictated: 08/29/20 1056 Transcribed: 08/29/20 1056 Patient: JERRY MENENDEZ Admit Date: 08/29/20 MR#: [id number] Address1: [address] Acct ID:[id number] Address2: Date: [address] [facility] Zip: [place] [address] Age: 75 Location: ED Sex: M Room/Bed: Att Phy: Diagnosis: BILATERAL LEG WEAKNESS Ellen Phy: Tung Greco MD Service Date: 08/29/20 Toni Phy: Interpreting Phy: River Das MD Admit Phy: Ordering Phy: Castro Ritter DO cc: ~ XR chest 1V portable HISTORY: weakness COMPARISON: Chest 01/26/2019. FINDINGS: No pneumothorax. The cardiac silhouette remains normal in size. There is a tortuous thoracic aorta, unchanged. Mild chronic interstitial thickening, unchanged. No new focal lung consolidations to suggest pneumonia. No evidence for pulmonary edema. IMPRESSION: No significant change compared to the prior study. No acute process. ACT 112: Negative or not required by law. Electronically signed by: River Das M.D. 08/29/2020 9:49 AM Dictated: 08/29/20947 Transcribed: 08/29/20947 Patient: JERRY MENENDEZ Admit Date: 08/29/20 MR#: [id number] Address1: [facility] [place] Acct ID:[id number] Address2: Date: [address] [facility] Zip: [place] [address] Age: 75 Location: ED Sex: M Room/Bed: Att Phy: Diagnosis: BILATERAL LEG WEAKNESS Ellen Phy: Tung Greco MD Service Date: 08/29/20 Fam Phy: Interpreting Phy: River Das MD Admit Phy: Ordering Phy: Castro Ritter DO cc: ~ LUMBAR SPINE MRI HISTORY: Left lower extremity weakness TECHNIQUE: Multiplanar multisequence MRI of the lumbar spine was performed without the use of contrast. COMPARISON: Lumbar spine MRI 06/15/2018. FINDINGS: For the purpose of the report the L5-S1 disc space will be located on axial image 39 of 41. No fracture or subluxation. Endplate edema at L2-L3 favors degenerative change. L4 vertebral body hemangioma remain stable. There is severe disc space narrowing at L1-L2, L2-L3, L3-L4, L4-L5. This has progressed in the interval. End plate osteophytes seen throughout the lumbar spine. There is mild disc space narrowing at L5-S1, unchanged. The conus terminates at the L1 level. Facet degenerative changes seen throughout the lumbar spine. Posterior decompression at L4-L5. L1-L2: Broad-based posterior disc bulge with ligamentum and facet hypertrophy resulting in mild central canal and moderate right neural foraminal narrowing. There is also mild left-sided neural foraminal narrowing. This is similar to the prior study. L2-L3: Broad-based posterior disc osteophyte complex asymmetric to the left with ligamentum and facet hypertrophy resulting in moderate central canal and mild bilateral neural foraminal narrowing. This is similar to the prior study. L3-L4: Broad-based posterior disc bulge asymmetric to the left with ligamentum and facet hypertrophy resulting in moderate central canal and mild left-sided neural foraminal narrowing. This is similar to the prior study. L4-L5: Broad-based posterior disc bulge without significant central canal narrowing due to the posterior decompression. There is moderate left and mild right neural foraminal narrowing. L5-S1: Small broad-based posterior disc bulge without significant central canal or right-sided neural foraminal narrowing. There is mild left-sided neural foraminal narrowing. IMPRESSION: 1. No fractures within the lumbar spine. 2. Severe disc space narrowing throughout the majority lumbar spine which has progressed in the interval. 3. Endplate edema at L2-L3 is nonspecific but favors degenerative change. A superimposed discitis/osteomyelitis is considered less likely given the lack of significant fluid signal at the disc space. 3. Interval posterior decompression at L4-L5. No significant central canal narrowing at this level. 5. Moderate central canal narrowing at L2-L3 and L3-L4. This is similar to the prior study. ACT 112: Negative or not required by law. Electronically signed by: River Das M.D. 08/29/2020 2:15 PM Dictated: 08/29/20 140 Transcribed: 08/29/20 140 Patient: JERRY MENENDEZ Admit Date: 08/29/20 MR#: [id number] Address1: [facility] JOHANNE Acct ID:[id number] Address2: Date: [address] [facility] Zip: [place] [address] Age: 75 Location: ED Sex: M Room/Bed: Att Phy: Diagnosis: BILATERAL LEG WEAKNESS Ellen Phy: Tung Greco MD Service Date: 08/29/20 [facility] Phy: Interpreting Phy: River Das MD Admit Phy: Ordering Phy: Castro Ritter DO cc: ~ Brain MRI WITHOUT CONTRAST HISTORY: Left lower extremity weakness TECHNIQUE: Multiplanar multisequence MRI of the brain was performed without the use of contrast. COMPARISON STUDY: Brain MRI 01/26/2019. FINDINGS: No areas of restricted diffusion to suggest acute infarction. The midline structures are intact. Postoperative changes consistent with a prior right parietal craniotomy. Small focus of encephalitis within the right parietal lobe remains unchanged. Stable 4 mm extra-axial right parietal nodule on axial image 10. This favors a small meningioma. No hematoma or midline shift. Mild atrophy and minimal microvascular ischemic changes remain unchanged. T2 hyperintensity surrounding the right parietal encephalomalacia favors gliosis. This is also stable. The paranasal sinuses and mastoid air cells are clear. The orbits are unremarkable. IMPRESSION: No significant change compared to the prior study. No acute intracranial abnormality. ACT 112: Negative or not required by law. Electronically signed by: River Das M.D. 08/29/2020 2:07 PM Dictated: 08/29/20 1403 Transcribed: 08/29/20 1403 Blood Pressure Blood Pressure Findings: Normal blood pressure Discharge Plan Visit Data Chief Complaint: Leg Weakness, Bilateral ED Provider: Castro Ritter Discharge Problem: Acute left-sided weakness, Foot drop, left Patient Disposition: Being Evaluated by Hospitalist Condition: Good Forms Stand Alone Forms: My [facility] [employer] Prescriptions Prescriptions: No Action tamsulosin 0.4 mg Capsule 0.4 mg PO QAM RF: 0 Metamucil Sugar-Free (aspart) 3.4 gram/5.8 gram Powder 1 dose PO QPM RF: 0 hydrochlorothiazide 25 mg tablet 25 mg PO QAM RF: 0 venlafaxine 37.5 mg capsule,extended release 24hr 37.5 mg PO QAM RF: 0 aspirin 81 mg Tablet,Delayed Release (Dr/Ec) 81 mg PO HS RF: 0 diclofenac sodium 75 mg tablet,delayed release (DR/EC) 75 mg PO BID RF: 0 acetaminophen-codeine 300-60 mg tablet 1 tab PO Q6H PRN (Reason: Pain) RF: 0 metformin 500 mg tablet extended release 24 hr 500 mg PO QAM RF: 0 finasteride 5 mg tablet 5 mg PO QAM RF: 0 clopidogrel [Plavix] 75 mg tablet 75 mg PO QAM RF: 0 losartan 50 mg tablet 50 mg PO DAILY RF: 0 pantoprazole 40 mg tablet,delayed release (DR/EC) 40 mg PO DAILYBB RF: 0 cyclobenzaprine 5 mg PO TID PRN (Reason: Spasms) RF: 0 Referrals Referrals: Tung Greco MD [Primary Care Provider] -
[2020-08-29 09:45] LABS: Chloride 100 mmol/L (98-107); Potassium 3.3 mmol/L (3.5-5.1); Sodium 133 mmol/L (136-145)
[2020-08-29 09:48] LABS: INR 1.1 (0.9-1.1); Partial Thromboplastin Ratio 0.9; Partial Thromboplastin Time 25.1 Seconds (21.0-31.0); Prothrombin Time 11.1 Seconds (9.0-12.0)
[2020-08-29 09:49] LABS: iSTAT Creatinine 1.2 mg/dl (0.6-1.3); iSTAT Ionized Calcium 1.22 mmol/l (1.12-1.32); iSTAT Potassium 3.3 mmol/L (3.3-5.0)
--- NOTE | 2020-08-29 09:50 | XRay Report ---
XR chest 1V portable HISTORY: weakness COMPARISON: Chest 01/26/2019. FINDINGS: No pneumothorax. The cardiac silhouette remains normal in size. There is a tortuous thoraci c aorta, unchanged. Mild chronic interstitial thickening, unchanged. No new focal lung consolidations to suggest pneumonia. No evidence for pulmonary edema. IMPRESSION: No significant change compared to the prior study. No acute process. ACT 112: Negative or not required by law. Electronically signed by: River Das M.D. 08/29/2020 9:49 AM
[2020-08-29 10:49] LABS: Alanine Aminotransferase 36 U/L (12-78); Albumin Level 3.7 gm/dl (3.4-5.0); Aspartate Aminotransferase 18 U/L (15-37); BUN Creatinine Ratio 16.7 (10-20); Blood Urea Nitrogen 23 mg/dl (7-18); Calcium 9.6 mg/dl (8.5-10.1); Creatinine Clr Calc Pharmacy 59.2 ml/min; Est GFR (African American) 58.3; Est GFR (Non-African American) 50.3; Glucose 198 mg/dl (70-99); Magnesium 1.9 mg/dl (1.8-2.4); Thyroid Stimulating Hormone 0.997 uIu/ml (0.300-4.500); Troponin I < 0.015 ng/ml (0-0.045)
[2020-08-29 10:52] LABS: Albumin Globulin Ratio 0.9 (0.9-2); Alkaline Phosphatase 104 U/L (45-117); Bilirubin,Total 0.7 mg/dl (0.2-1); Creatine Kinase 87 U/L (39-308); Total Protein 7.7 gm/dl (6.4-8.2)
[2020-08-29] MEDS ORDERED: OPTIRAY 320 125ml IV ONE (10:59)
--- NOTE | 2020-08-29 11:04 | CT Scan Report ---
HEAD CT NONCONTRAST CT DOSE: 1368.76 mGy.cm HISTORY: Left lower extremity weakness. TECHNIQUE: Multiaxial CT images of the head were performed without the use of intravenous contrast. A utomated exposure control was utilized for this study. A dose lowering technique was utilized adheri ng to the principles of ALARA. Comparison: Head CT 01/26/2019. Findings: Small retention cyst within the right maxillary sinus. The mastoid air cells are clear. Pos toperative changes consistent with prior right parietal craniotomy with underlying right parietal lob e encephalomalacia. This remains unchanged. Stable 5 mm hyperdense extra-axial nodule within the righ t parietal region on image 18. This favors a small meningioma and is likely benign. Moderate atrophic changes are again noted. There is no hematoma, midline shift, acute infarct. Impression: No significant change compared to the prior study. No acute intracranial abnormality. ACT 112: Negative or not required by law. Electronically signed by: River Das M.D. 08/29/2020 11:00 AM
--- NOTE | 2020-08-29 11:24 | CT Scan Report ---
HEAD & NECK CTA HISTORY: Left lower extremity weakness. TECHNIQUE: Multiaxial CT images of the head were performed following the intravenous administration o f contrast to evaluate the major cerebral vessels. Multiaxial CT images of the neck were also perform ed following the intravenous administration of contrast to evaluate the major cervical vessels. Maxim um intensity projection images were also obtained. A dose lowering technique was utilized adhering to the principles of ALARA. COMPARISON: None. FINDINGS: There is no mass, hematoma, midline shift, or acute infarct. Visualized intracranial internal carotid arteries, distal right vertebral artery, and basilar artery are widely patent. There is no significa nt stenosis, occlusion, or aneurysm seen within the bilateral ACAs, MCAs, or speech assistant. Hypoplastic left v ertebral artery. There is also severely hypoplastic right P1 segment and left A1 segment. These are l ikely developmental. Prior right parietal craniotomy is again noted with underlying encephalomalacia. Mild focal narrowing within the distal left vertebral artery. The aortic arch and proximal great vessels are widely patent. There is no significant stenosis, occ lusion, or dissection identified within the bilateral common carotid, internal carotid, or vertebral arteries. Groundglass densities within the lung apices may be due to expiratory phase of the study. M ultinodular thyroid gland. Dominant nodule within the left lobe measures 2.5 cm. Hypoplastic left jordyn tebral artery in comparison to the right with mild multifocal narrowing at the intracranial portion. IMPRESSION: 1. No significant stenosis, occlusion, or aneurysm within the [place]. 2. No significant stenosis, occlusion, or dissection identified within the carotid or cervical verteb ral arteries. 3. Mild multifocal narrowing at the intracranial portion of the distal left vertebral artery. 3. Multinodular thyroid gland. ACT 112: Negative or not required by law. Electronically signed by: River Das M.D. 08/29/2020 11:22 AM
--- NOTE | 2020-08-29 11:24 | CT Scan Report ---
HEAD & NECK CTA HISTORY: Left lower extremity weakness. TECHNIQUE: Multiaxial CT images of the head were performed following the intravenous administration o f contrast to evaluate the major cerebral vessels. Multiaxial CT images of the neck were also perform ed following the intravenous administration of contrast to evaluate the major cervical vessels. Maxim um intensity projection images were also obtained. A dose lowering technique was utilized adhering to the principles of ALARA. COMPARISON: None. FINDINGS: There is no mass, hematoma, midline shift, or acute infarct. Visualized intracranial internal carotid arteries, distal right vertebral artery, and basilar artery are widely patent. There is no significa nt stenosis, occlusion, or aneurysm seen within the bilateral ACAs, MCAs, or photographer assistant. Hypoplastic left v ertebral artery. There is also severely hypoplastic right P1 segment and left A1 segment. These are l ikely developmental. Prior right parietal craniotomy is again noted with underlying encephalomalacia. Mild focal narrowing within the distal left vertebral artery. The aortic arch and proximal great vessels are widely patent. There is no significant stenosis, occ lusion, or dissection identified within the bilateral common carotid, internal carotid, or vertebral arteries. Groundglass densities within the lung apices may be due to expiratory phase of the study. M ultinodular thyroid gland. Dominant nodule within the left lobe measures 2.5 cm. Hypoplastic left jordyn tebral artery in comparison to the right with mild multifocal narrowing at the intracranial portion. IMPRESSION: 1. No significant stenosis, occlusion, or aneurysm within the [place]. 2. No significant stenosis, occlusion, or dissection identified within the carotid or cervical verteb ral arteries. 3. Mild multifocal narrowing at the intracranial portion of the distal left vertebral artery. 3. Multinodular thyroid gland. ACT 112: Negative or not required by law. Electronically signed by: River Das M.D. 08/29/2020 11:22 AM
[2020-08-29 11:43] LABS: Carbon Dioxide 24 mmol/L (21-32)
--- NOTE | 2020-08-29 11:57 | History & Physical Report ---
Date of Service August 29, 2020 Assessment & Plan (1) Lumbar stenosis with neurogenic claudication: Admission and Anticipated Discharge Date Admission Date: Lumbar stenosis with neurogenic claudication Left leg weakness--secondary to above Multiple mechanical falls Ambulatory dysfunction --MRI brain showed no acute intracranial abnormality --Lumbar MRI: No fractures within the lumbar spine. Severe disc space narrowing throughout the majority lumbar spine which has progressed in the interval. Endplate edema at L2-L3 is nonspecific but favors degenerative change. A superimposed discitis/osteomyelitis is considered less likely given the lack of significant fluid signal at the disc space. Interval posterior decompression at L4-L5. No significant central canal narrowing at this level. Moderate central canal narrowing at L2-L3 and L3-L4. This is similar to the prior study. --Normal TSH --Obtain Left Hip X ray Fall precautions PT OT Consulted orthopedics May need rehab placement Strokelike symptoms Acute CVA less likely --Brain MRI: No significant change compared to the prior study. No acute intracranial abnormality. --Neck CTA: No significant stenosis, occlusion, or aneurysm within the [place]. No significant stenosis, occlusion, or dissection identified within the carotid or cervical vertebral arteries. Mild multifocal narrowing at the intracranial portion of the distal left vertebral artery. Multinodular thyroid gland. --Head CTA: No significant stenosis, occlusion, or aneurysm within the [place]. No significant stenosis, occlusion, or dissection identified within the carotid or cervical vertebral arteries. Mild multifocal narrowing at the intracranial portion of the distal left vertebral artery. Multinodular thyroid gland. --Continue neurochecks Continue aspirin, Plavix Check lipid panel Consider neurology evaluation if needed Hypokalemia Replace electrolytes as needed Check magnesium level DM Type II: Last HbA1C: 7.2 on April 09, 2020 Will hold oral diabetic meds Update HbA1c ISS, basal Insulin, Accu checks, Diabetic diet Monitor BGs Prostate cancer S/P Radiation therapy Follows with Dr. 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 Chronic left hemiparesis and left foot drop CKD III Creatinine at baseline Monitor renal function DVT Px: SCDs Code Status Full Code Disposition PT/OT prior to discharge History of Present Illness Chief Complaint: Left leg weakness Primary Care Provider: Tung Greco MD Patient is a 75-year-old male with history of diabetes mellitus, prostate cancer, lumbar degenerative joint disease, GERD, intracranial hemorrhage secondary to AVM S/P craniotomy, chronic left hemiparesis, foot drop, hypertension, H/O TIA, CKD III and other medical problems presents with history of worsening left leg weakness associated with ambulatory dysfunction resulting in multiple falls. Patient states that he had severe lower back pain associated with left hip pain 1 week ago which currently improved with pain medications. He stated that low back pain radiated to left leg, with no relieving factors initially and worsens with minimal exertion. Reports having poor sleep secondary to the pain, contacted PCP for the same and was prescribed Voltaren which improved his symptoms. He admits to having chronic left hemiparesis since craniotomy in 2008 but noticed worsening left leg weakness since last few days resulting in at least 4 falls yesterday. He denies any head trauma, loss of consciousness, dizziness, vertigo, headache, change in vision. He has been using walker for ambulation since the fall. He was also seen by chiropractor on Monday which did not resolve his symptoms. He also reports having left leg numbness associated with tingling and muscle twitches. Denies any history of chest pain, SOB, palpitations, orthopnea, dizziness, cough, hemoptysis, fever, chills, bowel/bladder incontinence, nausea, vomiting, abdominal pain, blood in stools, diarrhea, change in appetite, dysuria, hematuria. Allergies Allergy/AdvReac Type Severity Reaction Status Date / Time adhesive Allergy Mild RASH Verified 08/29/20 10:30 meloxicam Allergy Mild rash Verified 08/29/20 10:30 benazepril Allergy Unknown rash Verified 08/29/20 10:30 Cipro Allergy Unknown rash Unverified 10/06/16 09:59 ciprofloxacin Allergy Unknown rash Verified 08/29/20 10:30 latex Allergy Unknown RASH, Verified 08/29/20 10:30 ITCHY, HIVES lubiprostone Allergy Unknown UNKNOWN Verified 08/29/20 10:30 yellow dye Allergy Unknown UNKNOWN Verified 08/29/20 10:30 tolterodine AdvReac Mild BREASTS Verified 08/29/20 10:30 SWELL AND HURT Home Medications Medication Instructions Recorded Confirmed Type Metamucil Sugar-Free (aspart) 1 dose PO QPM 06/25/18 08/29/20 History tamsulosin 0.4 mg PO QAM 06/25/18 08/29/20 History hydrochlorothiazide 25 mg PO QAM 01/26/19 08/29/20 History acetaminophen-codeine 1 tab PO Q6H PRN 08/29/20 08/29/20 History aspirin 81 mg PO HS 08/29/20 08/29/20 History clopidogrel [Plavix] 75 mg PO QAM 08/29/20 08/29/20 History cyclobenzaprine 5 mg PO TID PRN 08/29/20 08/29/20 History diclofenac sodium 75 mg PO BID 08/29/20 08/29/20 History finasteride 5 mg PO QAM 08/29/20 08/29/20 History losartan 50 mg PO DAILY 08/29/20 08/29/20 History metformin 500 mg PO QAM 08/29/20 08/29/20 History pantoprazole 40 mg PO DAILYBB 08/29/20 08/29/20 History venlafaxine 37.5 mg PO QAM 08/29/20 08/29/20 History Past Med/Surg History Medical History Acquired left foot drop 2/2 brain surgery, wears brace and uses cane Cancer PROSTATE (APPROX 5 YRS AGO, S/P XRT, NO SURGERY) AND SKIN 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 Diabetes mellitus, type 2 NO MEDS, DIET CONTROLLED GERD (gastroesophageal reflux disease) Hyperlipidemia Hypertension Osteoarthritis Personal history of DVT (deep vein thrombosis) FOLLOWING BRAIN SURGERY ...LEFT LEG DVT - NO CLOTS SINCE Surgical History History of back surgery 2011 LAMINECTOMY History of inferior vena caval filter placement HX JOVANNA FILTER AFTER DVT Hx of brain surgery For cavernous hemangioma Hx of breast surgery X3 FOR FIBROUS TUMORS - BENIGN Hx of colonoscopy Nausea and vomiting after administration of anesthetic agent Family History Mother Family hx of colon cancer Grandmother Family hx of colon cancer Social History Smoking Status: Former smoker Cigarettes Per Day: 1PPD X 24; Hx Alcohol Use: Yes Alcohol type: beer Hx Substance Use: No Preferred Language: Nauruan Communication Ability: Effective 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: No Beliefs That Will Affect Care: None marital status: Current Living Situation: Spouse Other Information That Helps Us Care for You: No Feels Safe at Home: Yes Safety Concerns: Feels Safe At This Time Assistive Devices: Glasses and Walker Review of Systems Review of Systems: All systems reviewed & are unremarkable except as noted in HPI & below Physical Exam Physical Exam: Physical Exam: Vitals signs as noted above General Appearance:Moderately built and nourished, no apparent distress Head: normocephalic, Atraumatic Eyes: normal inspection, EOMI, PERRL Neck: supple, Trachea midline Respiratory/Chest: Normal breath sounds, CTA, No accessory muscle use Cardiovascular: S1, S2, No murmur Abdomen/GI:Soft, Non tender, Bowel sounds present Extremities/Musculoskelatal:normal inspection, no edema Neurologic/Psych:AAOX3, left foot drop, left lower extremity > left upper extremity weakness 3-4/5, chronic left ankle swelling Skin: normal color, warm Results & Data Results & Data ([facility]) Vital Signs (Past 12 Hours) Vital Signs Temp Pulse Pulse Resp BP BP Pulse Ox 08/29/20 11:00 91 H 15 148/91 H 96 08/29/20 10:57 89 20 130/99 97 08/29/20 10:30 88 17 125/90 94 08/29/20 10:00 86 20 113/81 95 08/29/20 09:30 93 H 20 126/97 93 08/29/20 09:17 93 H 20 94 08/29/20 09:09 36.8 C 96 H 93 H 18 144/94 H 144/94 H 94 08/29/20 09:02 92 H 13 144/94 H 92 Laboratory Results Short CBC 08/29/20 Range/Units 09:22 WBC 10.11 (4.8-10.8) K/uL Hgb 16.6 (14.0-18.0) g/dL Hct 48.2 (42-52) % Plt Count 258 (130-400) K/uL BMP 08/29/20 09:22 Sodium 133 L Potassium 3.3 L Chloride 100 Carbon Dioxide 24 BUN 23 H Creatinine 1.35 Glucose 198 H Calcium 9.6 Cardiac Enzymes 08/29/20 Range/Units 09:22 Total Creatine Kinase 87 (39-308) U/L Troponin I < 0.015 (0-0.045) ng/ml Liver Function 08/29/20 Range/Units 09:22 Total Bilirubin 0.7 (0.2-1) mg/dl AST 18 (15-37) U/L ALT 36 (12-78) U/L Alkaline Phosphatase 104 (45-117) U/L Albumin 3.7 (3.4-5.0) gm/dl Urine 08/29/20 Range/Units 13:50 Urine Color Yellow Urine Appearance Clear (Clear) Urine pH 7.0 (4.5-7.5) Ur Specific [place] 1.028 (1.000-1.030) Urine Protein Negative (Negative) Urine Glucose (UA) Negative (Negative) Diagnostic Findings Lumbar MRI: 1. No fractures within the lumbar spine. 2. Severe disc space narrowing throughout the majority lumbar spine which has progressed in the interval. 3. Endplate edema at L2-L3 is nonspecific but favors degenerative change. A superimposed discitis/osteomyelitis is considered less likely given the lack of significant fluid signal at the disc space. 3. Interval posterior decompression at L4-L5. No significant central canal narrowing at this level. 5. Moderate central canal narrowing at L2-L3 and L3-L4. This is similar to the prior study. Brain MRI: No significant change compared to the prior study. No acute intracranial abnormality. Neck CTA: 1. No significant stenosis, occlusion, or aneurysm within the [place]. 2. No significant stenosis, occlusion, or dissection identified within the carotid or cervical vertebral arteries. 3. Mild multifocal narrowing at the intracranial portion of the distal left vertebral artery. 3. Multinodular thyroid gland. Head CTA: 1. No significant stenosis, occlusion, or aneurysm within the [place]. 2. No significant stenosis, occlusion, or dissection identified within the carotid or cervical vertebral arteries. 3. Mild multifocal narrowing at the intracranial portion of the distal left vertebral artery. 3. Multinodular thyroid gland. CXR: No significant change compared to the prior study. No acute process. ECG Additional Comments: EKG: Normal sinus rhythm, nonspecific ST-T wave changes, QRS widening--[id number]
--- NOTE | 2020-08-29 14:08 | Magnetic Resonance Report ---
Brain MRI WITHOUT CONTRAST HISTORY: Left lower extremity weakness TECHNIQUE: Multiplanar multisequence MRI of the brain was performed without the use of contrast. COMPARISON STUDY: Brain MRI 01/26/2019. FINDINGS: No areas of restricted diffusion to suggest acute infarction. The midline structures are in tact. Postoperative changes consistent with a prior right parietal craniotomy. Small focus of encepha litis within the right parietal lobe remains unchanged. Stable 4 mm extra-axial right parietal nodule on axial image 10. This favors a small meningioma. No hematoma or midline shift. Mild atrophy and mi nimal microvascular ischemic changes remain unchanged. T2 hyperintensity surrounding the right pariet al encephalomalacia favors gliosis. This is also stable. The paranasal sinuses and mastoid air cells are clear. The orbits are unremarkable. IMPRESSION: No significant change compared to the prior study. No acute intracranial abnormality. ACT 112: Negative or not required by law. Electronically signed by: River Das M.D. 08/29/2020 2:07 PM
--- NOTE | 2020-08-29 14:17 | Magnetic Resonance Report ---
LUMBAR SPINE MRI HISTORY: Left lower extremity weakness TECHNIQUE: Multiplanar multisequence MRI of the lumbar spine was performed without the use of contras t. COMPARISON: Lumbar spine MRI 06/15/2018. FINDINGS: For the purpose of the report the L5-S1 disc space will be located on axial image 39 of 41. No fracture or subluxation. Endplate edema at L2-L3 favors degenerative change. L4 vertebral body hem angioma remain stable. There is severe disc space narrowing at L1-L2, L2-L3, L3-L4, L4-L5. This has p rogressed in the interval. End plate osteophytes seen throughout the lumbar spine. There is mild disc space narrowing at L5-S1, unchanged. The conus terminates at the L1 level. Facet degenerative change s seen throughout the lumbar spine. Posterior decompression at L4-L5. L1-L2: Broad-based posterior disc bulge with ligamentum and facet hypertrophy resulting in mild centr al canal and moderate right neural foraminal narrowing. There is also mild left-sided neural foramina l narrowing. This is similar to the prior study. L2-L3: Broad-based posterior disc osteophyte complex asymmetric to the left with ligamentum and facet hypertrophy resulting in moderate central canal and mild bilateral neural foraminal narrowing. This is similar to the prior study. L3-L4: Broad-based posterior disc bulge asymmetric to the left with ligamentum and facet hypertrophy resulting in moderate central canal and mild left-sided neural foraminal narrowing. This is similar t o the prior study. L4-L5: Broad-based posterior disc bulge without significant central canal narrowing due to the glass technician ior decompression. There is moderate left and mild right neural foraminal narrowing. L5-S1: Small broad-based posterior disc bulge without significant central canal or right-sided neural foraminal narrowing. There is mild left-sided neural foraminal narrowing. IMPRESSION: 1. No fractures within the lumbar spine. 2. Severe disc space narrowing throughout the majority lumbar spine which has progressed in the inter efren. 3. Endplate edema at L2-L3 is nonspecific but favors degenerative change. A superimposed discitis/ost eomyelitis is considered less likely given the lack of significant fluid signal at the disc space. 3. Interval posterior decompression at L4-L5. No significant central canal narrowing at this level. 5. Moderate central canal narrowing at L2-L3 and L3-L4. This is similar to the prior study. ACT 112: Negative or not required by law. Electronically signed by: River Das M.D. 08/29/2020 2:15 PM
[2020-08-29 14:27] LABS: Appearance Urine Clear (Clear); Bacteria Urine Automated Negative (Negative); Bilirubin Urine Negative (Negative); Blood Urine Trace (Negative); Cast Urine Automated 0 /lpf (0-5); Color Urine Yellow; Epithelial Cell Urine Auto 0-5 /lpf (0-5); Glucose Urine UA Negative (Negative); Ketones Urine Negative (Negative); Leukocyte Esterase Urine Negative (Negative); Nitrite Urine Negative (Negative); Protein Urine Negative (Negative); RBC Urine Automated 0-4 /hpf (0-4); Specific Gravity Urine 1.028 (1.000-1.030); Urobilinogen Urine Negative (Negative); WBC Urine Automated 0 /hpf (0-5)
[2020-08-29] MEDS ORDERED: GLUCOSE 10 TABS/TUBE PO PRN (16:46)
[2020-08-29] MEDS ORDERED: ACETAMINOPHEN 325 MG TAB PO PRN (16:46)
[2020-08-29] MEDS ORDERED: GLUCAGON FOR INJ 1 MG VIAL SQ PRN (16:46)
[2020-08-29] MEDS ORDERED: POTASSIUM CHLORIDE CRTAB 20 MEQ TABCR PO ONE (16:46)
[2020-08-29] MEDS ORDERED: DEXTROSE 50% 50 ML SYRINGE IV PRN (16:46)
[2020-08-29] MEDS ORDERED: GLUCOSE 40% GEL 15 GM TUBE PO PRN (16:46)
[2020-08-29] MEDS ORDERED: ONDANSETRON INJ 2 MG/ML 2 ML VIAL IV PRN (16:46)
[2020-08-29] MEDS ORDERED: CARBOHYDRATES FOR HYPOGLYCEMIA PO PRN (16:46)
[2020-08-29] MEDS: INSULIN ASPART 100 UNITS/ML 3 ML PEN SC SCH ×2 (17:42→20:43)
--- NOTE | 2020-08-29 17:50 | XRay Report ---
XR hip LT 2V w pelvis CLINICAL HISTORY: Left hip pain. COMPARISON STUDY: None. FINDINGS: Contrast within the bladder from the recent CT examinations. No acute fracture or dislocati on within the pelvis or hips. Moderate osteoarthritis within the bilateral hips. The sacrum appears i ntact. IMPRESSION: No fracture or dislocation within the pelvis or hips. ACT 112: Negative or not required by law. Electronically signed by: River Das M.D. 08/29/2020 5:49 PM
[2020-08-29] MEDS: INSULIN GLARGINE SOLOSTAR 100 UNITS/ML 3 ML PEN SC SCH (20:43)
[2020-08-29] MEDS: ASPIRIN 81 MG ECTAB PO SCH (20:44)
[2020-08-29] MEDS: ACETAMINOPHEN W/CODEINE #3 1 TAB PO PRN (21:49)
[2020-08-29] MEDS: DICLOFENAC SODIUM 75 MG TABCR PO PRN (21:51)
[2020-08-29] MEDS: LOSARTAN POTASSIUM 50 MG TAB PO SCH (21:51)
[2020-08-30 06:03] LABS: Basophils # (auto) 0.03 K/uL (0-0.2); Basophils % (auto) 0.3 %; Eosinophils # (auto) 0.09 K/uL (0-0.5); Hematocrit (blood only) 46.4 % (42-52); Hemoglobin 15.6 g/dL (14.0-18.0); Immature Granulocytes # (auto) 0.02 K/uL (0.00-0.02); Immature Granulocytes % (auto) 0.2 %; Lymphocytes # (auto) 3.07 K/uL (1.2-3.4); Lymphocytes % (auto) 34.1 %; Mean Corpuscular Hemoglobin 30.5 pg (25-34); Mean Corpuscular Hgb Conc 33.6 g/dL (32-36); Mean Corpuscular Volume 90.8 fL (80-100); Mean Platelet Volume 9.5 fL (7.4-10.4); Monocytes # (auto) 1.16 K/uL (0.11-0.59); Monocytes % (auto) 12.9 %; Neutrophils # (auto) 4.63 K/uL (1.4-6.5); Neutrophils % (auto) 51.5 %; Platelet Count 270 K/uL (130-400); RDW Standard Deviation 46.4 fL (36.4-46.3); Red Blood Count 5.11 M/uL (4.7-6.1)
[2020-08-30 06:27] LABS: BUN Creatinine Ratio 16.7 (10-20); Calcium 9.2 mg/dl (8.5-10.1); Creatinine Clr Calc Pharmacy 56.6 ml/min; Est GFR (African American) 55.3; Est GFR (Non-African American) 47.7; Potassium 3.7 mmol/L (3.5-5.1)
[2020-08-30] MEDS: PANTOprazole 40 MG TAB PO SCH (06:27)
[2020-08-30] MEDS: ACETAMINOPHEN W/CODEINE #3 1 TAB PO PRN ×3 (06:31→21:56)
[2020-08-30] MEDS: DICLOFENAC SODIUM 75 MG TABCR PO PRN ×2 (06:33→21:57)
--- NOTE | 2020-08-30 06:34 | Electrocardiogram Report ---
Test Reason : Blood Pressure : / mmHG Vent. Rate : 086 BPM Atrial Rate : 086 BPM P-R Int : 174 ms QRS Dur : 116 ms QT Int : 392 ms P-R-T Axes : 039 -28 049 degrees QTc Int : 469 ms Normal sinus rhythm Left ventricular hypertrophy with QRS widening Nonspecific ST and T wave abnormality Abnormal ECG When compared with ECG of 26-JAN-2019 11:00, Premature ventricular complexes are no longer Present Nonspecific T wave abnormality now evident in Anterior leads Confirmed by Nathan Ruelas ([id number]) on 08/30/2020 6:34:28 AM Referred By: REFERRED SELF Confirmed By:Nathan Ruelas
[2020-08-30] MEDS ORDERED: LOSARTAN POTASSIUM 50 MG TAB PO SCH (09:00)
[2020-08-30] MEDS: TAMSULOSIN HCL 0.4 MG CAP PO SCH (09:07)
[2020-08-30] MEDS: VENLAFAXINE HCL XR 37.5 MG CAPXR PO SCH (09:07)
[2020-08-30] MEDS: hydroCHLOROthiazide 25 MG TAB PO SCH (09:08)
[2020-08-30] MEDS: CLOPIDOGREL BISULFATE 75 MG TAB PO SCH (09:08)
[2020-08-30] MEDS: CYCLOBENZAPRINE HCL 5 MG TAB PO PRN ×2 (09:09→16:33)
[2020-08-30] MEDS: INSULIN GLARGINE SOLOSTAR 100 UNITS/ML 3 ML PEN SC SCH ×2 (09:13→21:59)
[2020-08-30] MEDS: INSULIN ASPART 100 UNITS/ML 3 ML PEN SC SCH ×4 (09:13→21:58)
[2020-08-30] MEDS: FINASTERIDE 5 MG TAB PO SCH (09:17)
--- NOTE | 2020-08-30 09:42 | Consultation ---
Date of Consultation August 30, 2020 Assessment & Plan (1) Lumbar stenosis with neurogenic claudication: Pt has worsening LLE weakness on top of established LLE weakness subsequent to Brain surgery 2008. MRI findings have been reviewed with patient. I believe his MRI findings to reveal severe stenosis at the L2-3, moderate to severe at L3-4 level. Conservative and surgical options were also reviewed. He is adamant he wants to avoid surgery. We have therefore reviewed outpatient physical therapy focusing on LLE strengthening as a recommendation. He also reports he has an appointment with Dr. Reyes on Saturday 09/01. This is reasonable to consider for better pain control. He understands that Lumbar injections will not change/improve his LLE weakness. Thank you for this consultation. Please do not hesitate to contact us if there are any further questions. Supervising Physician Co-Signing Physician Notes Gee Diamond History of Present Illness This is a very pleasant 75yo gentleman that we have been asked to see in consultation in regards to newer LLE weakness. He has established Left upper/lower extremity weakness s/p brain surgery by Dr. Mills in 2008. He wears Left AFO and ambulates with a cane ever since, He also reports 1 year hs of LLE pain. Recently, he has noted worsening weakness of LLE x 7-8 days. His LLE is buckling and giving out on him. He has had two prior lumbar surgeries. ONe by Dr. Olmedo and the sencond by Dr. Baird. He reports RLE is asymptomatic Attending Physician: Olga Lenz, Allergies Allergy/AdvReac Type Severity Reaction Status Date / Time adhesive Allergy Mild RASH Verified 08/29/20 10:30 meloxicam Allergy Mild rash Verified 08/29/20 10:30 benazepril Allergy Unknown rash Verified 08/29/20 10:30 Cipro Allergy Unknown rash Unverified 10/06/16 09:59 ciprofloxacin Allergy Unknown rash Verified 08/29/20 10:30 latex Allergy Unknown RASH, Verified 08/29/20 10:30 ITCHY, HIVES lubiprostone Allergy Unknown UNKNOWN Verified 08/29/20 10:30 yellow dye Allergy Unknown UNKNOWN Verified 08/29/20 10:30 tolterodine AdvReac Mild BREASTS Verified 08/29/20 10:30 SWELL AND HURT Home Medications Medication Instructions Recorded Confirmed Type Metamucil Sugar-Free (aspart) 1 dose PO QPM 06/25/18 08/29/20 History tamsulosin 0.4 mg PO QAM 06/25/18 08/29/20 History hydrochlorothiazide 25 mg PO QAM 01/26/19 08/29/20 History acetaminophen-codeine 1 tab PO Q6H PRN 08/29/20 08/29/20 History aspirin 81 mg PO HS 08/29/20 08/29/20 History clopidogrel [Plavix] 75 mg PO QAM 08/29/20 08/29/20 History cyclobenzaprine 5 mg PO TID PRN 08/29/20 08/29/20 History diclofenac sodium 75 mg PO BID 08/29/20 08/29/20 History finasteride 5 mg PO QAM 08/29/20 08/29/20 History losartan 50 mg PO HS 08/29/20 08/29/20 History metformin 500 mg PO QAM 08/29/20 08/29/20 History pantoprazole 40 mg PO DAILYBB 08/29/20 08/29/20 History venlafaxine 37.5 mg PO QAM 08/29/20 08/29/20 History Patient History Medical History Acquired left foot drop 2/2 brain surgery, wears brace and uses cane Cancer PROSTATE (APPROX 5 YRS AGO, S/P XRT, NO SURGERY) AND SKIN 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 Diabetes mellitus, type 2 NO MEDS, DIET CONTROLLED GERD (gastroesophageal reflux disease) Hyperlipidemia Hypertension Osteoarthritis Personal history of DVT (deep vein thrombosis) FOLLOWING BRAIN SURGERY ...LEFT LEG DVT - NO CLOTS SINCE Surgical History History of back surgery 2011 LAMINECTOMY History of inferior vena caval filter placement HX JOVANNA FILTER AFTER DVT Hx of brain surgery For cavernous hemangioma Hx of breast surgery X3 FOR FIBROUS TUMORS - BENIGN Hx of colonoscopy Nausea and vomiting after administration of anesthetic agent Family History Mother Family hx of colon cancer Grandmother Family hx of colon cancer Social History Smoking Status: Former smoker Cigarettes Per Day: 1PPD X 24; Hx Alcohol Use: Yes Alcohol type: beer Hx Substance Use: No Preferred Language: Mohawk Communication Ability: Effective 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 Beliefs That Will Affect Care: None marital status: Current Living Situation: Spouse Other Information That Helps Us Care for You: No Feels Safe at Home: Yes Safety Concerns: Feels Safe At This Time Assistive Devices: Brace/Splint/Immobilizer, Glasses and Walker Review of Systems Review of Systems: All systems reviewed & are unremarkable except as noted in HPI & below Physical Exam Physical Exam: Sitting in chair in NAD A&Ox3 Strength is 5/5 RLE 3/5 Left Ehl, dorsiflexion, plantarflexion, Quad, hamstring, hip flexor well healed midline lumbar incision Constitutional: WD/WN, vitals as above Eyes: normal visual ocampo by confrontation ENMT: external ear and nose normal, oropharynx normal Neck: normal visual inspection Respiratory: normal respiratory effort Cardiovascular: Extremities: normal capillary refill Chest (Breasts): Chest: normal inspection of chest Gastrointestinal (Abdomen): Percussion/Palpation: abdomen soft Musculoskeletal: Extremities: + abnormal strength and + muscle atrophy Gait: + antalgic gait Skin: no rashes, warm and dry Neurologic: normal touch/pain/proprioception and moves all extremities Psychiatric: A+Ox3, euthymic affect Results & Data ([facility]) Vital Signs (Past 12 Hours) Vital Signs Temp Pulse Pulse Resp BP BP Pulse Ox 08/30/20 07:20 71 08/30/20 07:00 36.4 C L 70 20 135/81 95 08/30/20 04:00 36.5 C 75 18 126/82 93 08/29/20 23:47 36.7 C 73 18 116/75 94 08/29/20 22:20 77 08/29/20 21:49 71 116/78 Diagnostic Findings [facility], [id number] Magnetic Resonance Report Patient: JERRY MENENDEZ Date: 08/29/20MR#: [id number] JOHANNE RDAcct ID:[id number]: Date: [address] [place] [address] Zip: [place] [id number]: [id number]: EDSex: MRoom/Bed:Att Phy:Diagnosis: BILATERAL LEG WEAKNESSPri Phy: Tung Greco MDService Date: 08/29/20Fam Phy:Interpreting Phy: Riverayse Stewartcristianodeepak MDAdmit Phy: Ordering Phy: Castro Ritter DO cc: ~ LUMBAR SPINE MRI HISTORY: Left lower extremity weakness TECHNIQUE: Multiplanar multisequence MRI of the lumbar spine was performed without the use of contrast. COMPARISON: Lumbar spine MRI 06/15/2018. FINDINGS: For the purpose of the report the L5-S1 disc space will be located on axial image 39 of 41. No fracture or subluxation. Endplate edema at L2-L3 favors degenerative change. L4 vertebral body hemangioma remain stable. There is severe disc space narrowing at L1-L2, L2-L3, L3-L4, L4-L5. This has progressed in the interval. End plate osteophytes seen throughout the lumbar spine. There is mild disc space narrowing at L5-S1, unchanged. The conus terminates at the L1 level. Facet degenerative changes seen throughout the lumbar spine. Posterior decompression at L4-L5. L1-L2: Broad-based posterior disc bulge with ligamentum and facet hypertrophy resulting in mild central canal and moderate right neural foraminal narrowing. There is also mild left-sided neural foraminal narrowing. This is similar to the prior study. L2-L3: Broad-based posterior disc osteophyte complex asymmetric to the left with ligamentum and facet hypertrophy resulting in moderate central canal and mild bilateral neural foraminal narrowing. This is similar to the prior study. L3-L4: Broad-based posterior disc bulge asymmetric to the left with ligamentum and facet hypertrophy resulting in moderate central canal and mild left-sided neural foraminal narrowing. This is similar to the prior study. L4-L5: Broad-based posterior disc bulge without significant central canal narrowing due to the posterior decompression. There is moderate left and mild right neural foraminal narrowing. L5-S1: Small broad-based posterior disc bulge without significant central canal or right-sided neural foraminal narrowing. There is mild left-sided neural foraminal narrowing. IMPRESSION: 1. No fractures within the lumbar spine. 2. Severe disc space narrowing throughout the majority lumbar spine which has progressed in the interval. 3. Endplate edema at L2-L3 is nonspecific but favors degenerative change. A superimposed discitis/osteomyelitis is considered less likely given the lack of significant fluid signal at the disc space. 3. Interval posterior decompression at L4-L5. No significant central canal narrowing at this level. 5. Moderate central canal narrowing at L2-L3 and L3-L4. This is similar to the prior study. ACT 112: Negative or not required by law. Electronically signed by: River Das M.D. 08/29/2020 2:15 PM Dictated: 08/29/20 1407Transcribed: 08/29/20 1407
[2020-08-30] MEDS ORDERED: PNEUMOCOCCAL Polysaccharide Vaccine 25mcg/0.5mL vial/Syr IM ONE (14:15)
--- NOTE | 2020-08-30 19:38 | Hospitalist Progress Note ---
Date of Service August 30, 2020 Assessment & Plan (1) Lumbar stenosis with neurogenic claudication: Patient is opting for conservative management with ice, rest, NSAIDs, Tylenol as needed and narcotics as needed. Orthopedic spine surgeon was consulted and discussed surgical options to which the patient declined. PT/OT evaluation requested. (2) CKD (chronic kidney disease), stage III: Chronic, stable, around his baseline. Monitor BMP on diclofenac. (3) Hypertension: Chronic, stable, continue current medication management with lisinopril and hydrochlorothiazide per home regimen. (4) Acquired left foot drop: 2/2 prior brain surgery, patient states this is chronic. Cont palliative care and pain control efforts for back pain and continue working with PT and OT. (5) Depression: Chronic, stable, continue continue venlafaxine per home regimen. (6) DVT prophylaxis: SCDs Full code Disposition-to rehab once pain is controlled and patient is not needing any intravenous narcotic medications. [facility] and [facility]ticipated Discharge Date Admission Date: August 29, 2020 Subjective CC: severe lower back pain Severe back pain overnight with limited movement per patient. He has severe superficial musculoskeletal pain on exam and describes this to me. Some radicular neuropathy is present. Review of Systems Review of Systems: All systems reviewed & are unremarkable except as noted in Subjective Physical Exam Physical Exam: CONSTITUTIONAL: WNWD, vitals as above, generally well- appearing EYES: normal conjunctivae, no scleral icterus ENT: external ear and nose normal, oropharynx clear RESPIRATORY: clear to auscultation bilaterally, no crackles, rales or wheezes, normal respiratory effort CARDIOVASCULAR: regular rate and rhythm, S1 and 2 heard without murmurs, gallops or rubs, no JVD, no peripheral edema GASTROINTESTINAL: normal bowel sounds, soft, nontender, nondistended, no guarding MUSCULOSKELETAL: strength 5/5 throughout except for LLE 3/5 knee flexion, LLE brace in place but he appears to dorsiflex and plantarflex without issue 5/5 strength. head is normocephalic and atraumatic SKIN: warm and dry NEUROLOGIC: No facial palsy, no dysarthria. CN 2-12 grossly intact, no sensory deficit, normal cognition, normal speech, no tremor. Straight leg raise test negative bilaterally. PSYCHIATRIC: alert cooperative and oriented to person, place and time. Results & Data Results & Data ([facility]) Vital Signs (Past 12 Hours) Vital Signs Temp Pulse Pulse Resp BP Pulse Ox 08/30/20 15:09 36.8 C 81 20 116/75 90 08/30/20 15:00 84 08/30/20 11:47 36.8 C 79 20 122/76 90
[2020-08-30] MEDS: LOSARTAN POTASSIUM 50 MG TAB PO SCH (20:14)
[2020-08-30] MEDS: ASPIRIN 81 MG ECTAB PO SCH (20:14)
[2020-08-30] MEDS: POLYETHYLENE (MIRALAX) 17 GM PACK PO PRN (20:14)
[2020-08-31] MEDS: CYCLOBENZAPRINE HCL 5 MG TAB PO PRN (00:28)
[2020-08-31] MEDS: ACETAMINOPHEN W/CODEINE #3 1 TAB PO PRN (06:37)
[2020-08-31] MEDS: PANTOprazole 40 MG TAB PO SCH (06:38)
[2020-08-31 07:07] LABS: Estimated Average Glucose 166 mg/dl; Hemoglobin A1C 7.4 % (4.5-5.6)
[2020-08-31] MEDS: INSULIN ASPART 100 UNITS/ML 3 ML PEN SC SCH ×4 (08:22→21:31)
[2020-08-31] MEDS: TAMSULOSIN HCL 0.4 MG CAP PO SCH (08:25)
[2020-08-31] MEDS: VENLAFAXINE HCL XR 37.5 MG CAPXR PO SCH (08:25)
[2020-08-31] MEDS: hydroCHLOROthiazide 25 MG TAB PO SCH (08:25)
[2020-08-31] MEDS: CLOPIDOGREL BISULFATE 75 MG TAB PO SCH (08:26)
[2020-08-31] MEDS: FINASTERIDE 5 MG TAB PO SCH (08:27)
[2020-08-31] MEDS: INSULIN GLARGINE SOLOSTAR 100 UNITS/ML 3 ML PEN SC SCH ×2 (09:28→21:30)
--- NOTE | 2020-08-31 18:15 | Hospitalist Progress Note ---
Date of Service August 31, 2020 Assessment & Plan (1) Lumbar stenosis with neurogenic claudication: Patient is opting for conservative management with ice, rest, NSAIDs, Tylenol as needed and narcotics as needed. Orthopedic spine surgeon was consulted and discussed surgical options to which the patient declined. PT/OT evaluation performed with recommendations for rehab. The patient is scheduled to go to [facility] at discharge. (2) CKD (chronic kidney disease), stage III: Chronic, stable, around his baseline. (3) Hypertension: Chronic, stable, continue current medication management with lisinopril and hydrochlorothiazide per home regimen. (4) Acquired left foot drop: 2/2 prior brain surgery, patient states this is chronic. Cont palliative care and pain control efforts for back pain and continue working with PT and OT. (5) Depression: Chronic, stable, continue continue venlafaxine per home regimen. (6) DVT prophylaxis: Lovenox Full code Disposition-to rehab once pain is controlled and patient is not needing any intravenous narcotic medications. Olga Lenz DO [facility] Hospitalist Admission and Anticipated Discharge Date Admission Date: August 30, 2020 Subjective CC: severe lower back pain Back pain is slightly improved but still severe, patient had a flare overnight that was very bad per his description somewhat improved with Flexeril that he was given. Review of Systems Review of Systems: All systems reviewed & are unremarkable except as noted in Subjective Physical Exam Physical Exam: CONSTITUTIONAL: WNWD, vitals as above, generally well- appearing EYES: normal conjunctivae, no scleral icterus ENT: external ear and nose normal, oropharynx clear RESPIRATORY: clear to auscultation bilaterally, no crackles, rales or wheezes, normal respiratory effort CARDIOVASCULAR: regular rate and rhythm, S1 and 2 heard without murmurs, gallops or rubs, no JVD, no peripheral edema GASTROINTESTINAL: normal bowel sounds, soft, nontender, nondistended, no guarding MUSCULOSKELETAL: strength 5/5 throughout except for LLE 3/5 knee flexion, LLE brace in place but he appears to dorsiflex and plantarflex without issue 5/5 strength. head is normocephalic and atraumatic SKIN: warm and dry NEUROLOGIC: No facial palsy, no dysarthria. CN 2-12 grossly intact, no sensory deficit, normal cognition, normal speech, no tremor. Straight leg raise test negative bilaterally. PSYCHIATRIC: alert cooperative and oriented to person, place and time. Results & Data Results & Data ([facility]) Vital Signs (Past 12 Hours) Vital Signs Temp Pulse Resp BP BP Pulse Ox 08/31/20 15:58 36.7 C 99 H 16 127/84 91 08/31/20 07:18 36.8 C 87 20 142/87 H 90 08/31/20 06:53 36.6 C 68 18 131/86 92 Medications Administered Current Inpatient Medications Acetaminophen (Acetaminophen 325 Mg Tab) 650 mg PO Q4H PRN PRN Reason: Pain or Fever Stop: 09/28/20 16:45 Acetaminophen/Codeine Phosphate (Acetaminophen W/Codeine #3 1 Tab) 1 tab PO Q6H PRN PRN Reason: Severe Pain Stop: 09/28/20 21:18 Last Admin: 08/31/20 06:37 Dose: 1 tab Documented by: Aspirin (Aspirin 81 Mg Ectab) 81 mg PO [facility] Stop: 09/28/20 20:59 Last Admin: 08/30/20 20:14 Dose: 81 mg Documented by: Clopidogrel Bisulfate (Clopidogrel Bisulfate 75 Mg Tab) 75 mg PO QAM [facility] Stop: 09/29/20 08:59 Last Admin: 08/31/20 08:26 Dose: 75 mg Documented by: Cyclobenzaprine HCl (Cyclobenzaprine Hcl 5 Mg Tab) 5 mg PO TID PRN PRN Reason: Spasms Stop: 09/28/20 16:45 Last Admin: 08/31/20 00:28 Dose: 5 mg Documented by: Dextrose (Dextrose 50% 50 Ml Syringe) 25 - 50 ml IV UD PRN; Protocol PRN Reason: Hypoglycemia Protocol Stop: 09/28/20 16:45 Diclofenac Sodium (Diclofenac Sodium 75 Mg Tabcr) 75 mg PO BID PRN PRN Reason: Pain Stop: 09/28/20 16:45 Last Admin: 08/30/20 21:57 Dose: 75 mg Documented by: Finasteride (Finasteride 5 Mg Tab) 5 mg PO QAM [facility] Stop: 09/29/20 08:59 Last Admin: 08/31/20 08:27 Dose: 5 mg Documented by: Glucagon (Glucagon For Inj 1 Mg Vial) 1 mg SQ UD PRN; Protocol PRN Reason: Hypoglycemia Protocol Stop: 09/28/20 16:45 Glucose (Glucose 10 Tabs/Tube) 4 - 8 tabs PO UD PRN; Protocol PRN Reason: Hypoglycemia Protocol Stop: 09/28/20 16:45 Glucose (Glucose 40% Gel 15 Gm Tube) 15 - 30 gm PO UD PRN; Protocol PRN Reason: Hypoglycemia Protocol Stop: 09/28/20 16:45 Hydrochlorothiazide (Hydrochlorothiazide 25 Mg Tab) 25 mg PO QAM [facility] Stop: 09/29/20 08:59 Last Admin: 08/31/20 08:25 Dose: 25 mg Documented by: Insulin Aspart (Insulin Aspart 100 Units/Ml 3 Ml Pen) 0 units SC ACHS [facility] Stop: 09/28/20 17:14 Last Admin: 08/31/20 17:28 Dose: 5 units Documented by: Insulin Glargine (Insulin Glargine Solostar 100 Units/Ml 3 Ml Pen) 5 units SC BID [facility] Stop: 09/28/20 20:59 Last Admin: 08/31/20 09:28 Dose: 5 units Documented by: Losartan Potassium (Losartan Potassium 50 Mg Tab) 50 mg PO HS [facility] Stop: 09/28/20 21:59 Last Admin: 08/30/20 20:14 Dose: 50 mg Documented by: Miscellaneous (Carbohydrates For Hypoglycemia ) 15 - 30 gm PO UD PRN PRN Reason: Hypoglycemia Protocol Stop: 09/28/20 16:45 Ondansetron HCl (Ondansetron Inj 2 Mg/Ml 2 Ml Vial) 4 mg IV Q6H PRN PRN Reason: Nausea Stop: 09/28/20 16:45 Pantoprazole Sodium (Pantoprazole 40 Mg Tab) 40 mg PO DAILYBB [facility] Stop: 09/29/20 06:29 Last Admin: 08/31/20 06:38 Dose: 40 mg Documented by: Polyethylene Glycol (Polyethylene (Miralax) 17 Gm Pack) 17 gm PO DAILY PRN PRN Reason: Constipation Stop: 09/28/20 16:45 Last Admin: 08/30/20 20:14 Dose: 17 gm Documented by: Tamsulosin HCl (Tamsulosin Hcl 0.4 Mg Cap) 0.4 mg PO QAM [facility] Stop: 09/29/20 08:59 Last Admin: 08/31/20 08:25 Dose: 0.4 mg Documented by: Venlafaxine HCl (Venlafaxine Hcl Xr 37.5 Mg Capxr) 37.5 mg [facility] Stop: 09/29/20 08:59 Last Admin: 08/31/20 08:25 Dose: 37.5 mg Documented by:
[2020-08-31] MEDS: MoRPHine SULFATE 4 MG/ML 1 ML CARP\\VIAL IV PRN (21:29)
[2020-08-31] MEDS: ASPIRIN 81 MG ECTAB PO SCH (21:32)
[2020-08-31] MEDS: LOSARTAN POTASSIUM 50 MG TAB PO SCH (21:36)
[2020-09-01] MEDS: ACETAMINOPHEN W/CODEINE #3 1 TAB PO PRN ×3 (01:04→16:45)
[2020-09-01] MEDS: DICLOFENAC SODIUM 75 MG TABCR PO PRN (01:38)
[2020-09-01] MEDS: MoRPHine SULFATE 4 MG/ML 1 ML CARP\\VIAL IV PRN ×2 (01:45→06:34)
[2020-09-01] MEDS: PANTOprazole 40 MG TAB PO SCH (06:37)
[2020-09-01] MEDS: CLOPIDOGREL BISULFATE 75 MG TAB PO SCH (07:56)
[2020-09-01] MEDS: TAMSULOSIN HCL 0.4 MG CAP PO SCH (07:56)
[2020-09-01] MEDS: VENLAFAXINE HCL XR 37.5 MG CAPXR PO SCH (07:56)
[2020-09-01] MEDS: hydroCHLOROthiazide 25 MG TAB PO SCH (07:56)
[2020-09-01] MEDS: FINASTERIDE 5 MG TAB PO SCH (07:57)
[2020-09-01] MEDS: INSULIN ASPART 100 UNITS/ML 3 ML PEN SC SCH ×4 (08:53→21:03)
[2020-09-01] MEDS: INSULIN GLARGINE SOLOSTAR 100 UNITS/ML 3 ML PEN SC SCH ×2 (08:53→21:03)
[2020-09-01 09:02] LABS: BUN Creatinine Ratio 18.4 (10-20); Calcium 9.7 mg/dl (8.5-10.1); Creatinine Clr Calc Pharmacy 53.2 ml/min; Est GFR (African American) 52.6; Est GFR (Non-African American) 45.4; Potassium 3.6 mmol/L (3.5-5.1)
[2020-09-01] MEDS ORDERED: HYDROmorphone INJ 0.5 MG/0.5 ML SYR IV PRN (09:08)
[2020-09-01] MEDS ORDERED: HYDROmorphone INJ 0.5 MG/0.5 ML SYR IV STA (09:08)
--- NOTE | 2020-09-01 15:39 | Hospitalist Progress Note ---
Date of Service September 01, 2020 Assessment & Plan (1) Lumbar stenosis with neurogenic claudication: Patient is opting for conservative management with ice, rest, NSAIDs, Tylenol as needed and narcotics as needed. Orthopedic spine surgeon was consulted and discussed surgical options to which the patient declined. PT/OT evaluation performed with recommendations for rehab. The patient is scheduled to go to [facility] at discharge. (2) CKD (chronic kidney disease), stage III: Chronic, stable, around his baseline. Diclofenac was held in setting of rising creatinine. GFR is around baseline. (3) Hypertension: Chronic, stable, continue current medication management with lisinopril and hydrochlorothiazide per home regimen. (4) Acquired left foot drop: 2/2 prior brain surgery, patient states this is chronic. Cont palliative care and pain control efforts for back pain and continue working with PT and OT. (5) Depression: Chronic, stable, continue continue venlafaxine per home regimen. (6) DVT prophylaxis: Lovenox Full code Disposition-to [facility] tomorrow Olga Lenz DO [facility] Hospitalist Admission and Anticipated Discharge Date Admission Date: August 30, 2020 Subjective CC: severe lower back pain Reports that his more superficial musculoskeletal lower back pain has resolved with IV Dilaudid today he is interested in transition to the p.o. version for breakthrough pain instead of codeine. This change was made on his orders. He would like to stay 1 more day to ensure no further severe pain episodes, on ov ernight requiring IV pain medications that would not be available at [facility]. Review of Systems Review of Systems: All systems reviewed & are unremarkable except as noted in Subjective Physical Exam Physical Exam: CONSTITUTIONAL: WNWD, vitals as above, generally well- appearing EYES: normal conjunctivae, no scleral icterus ENT: external ear and nose normal, oropharynx clear RESPIRATORY: clear to auscultation bilaterally, no crackles, rales or wheezes, normal respiratory effort CARDIOVASCULAR: regular rate and rhythm, S1 and 2 heard without murmurs, gallops or rubs, no JVD, no peripheral edema GASTROINTESTINAL: normal bowel sounds, soft, nontender, nondistended, no guarding MUSCULOSKELETAL: strength 5/5 throughout except for LLE 3/5 knee flexion, LLE brace in place but he appears to dorsiflex and plantarflex without issue 5/5 strength. head is normocephalic and atraumatic SKIN: warm and dry NEUROLOGIC: No facial palsy, no dysarthria. CN 2-12 grossly intact, no sensory deficit, normal cognition, normal speech, no tremor PSYCHIATRIC: alert cooperative and oriented to person, place and time. Results & Data Results & Data ([facility]) Vital Signs (Past 12 Hours) Vital Signs Temp Pulse Resp BP Pulse Ox 09/01/20 07:33 36.8 C 100 H 20 107/79 94 Laboratory Results [facility] 09/01/20 07:56 Sodium 137 Potassium 3.6 Chloride 102 Carbon Dioxide 26 BUN 27 H Creatinine 1.47 H Glucose 178 H Calcium 9.7 Medications Administered Current Inpatient Medications Acetaminophen (Acetaminophen 325 Mg Tab) 650 mg PO Q4H PRN PRN Reason: Pain or Fever Stop: 09/28/20 16:45 Acetaminophen/Codeine Phosphate (Acetaminophen W/Codeine #3 1 Tab) 1 tab PO Q6H PRN PRN Reason: Severe Pain Stop: 09/28/20 21:18 Last Admin: 09/01/20 06:34 Dose: 1 tab Documented by: Aspirin (Aspirin 81 Mg Ectab) 81 mg PO [facility] Stop: 09/28/20 20:59 Last Admin: 08/31/20 21:32 Dose: 81 mg Documented by: Clopidogrel Bisulfate (Clopidogrel Bisulfate 75 Mg Tab) 75 mg PO QAM [facility] Stop: 09/29/20 08:59 Last Admin: 09/01/20 07:56 Dose: 75 mg Documented by: Cyclobenzaprine HCl (Cyclobenzaprine Hcl 5 Mg Tab) 5 mg PO TID PRN PRN Reason: Spasms Stop: 09/28/20 16:45 Last Admin: 08/31/20 00:28 Dose: 5 mg Documented by: Dextrose (Dextrose 50% 50 Ml Syringe) 25 - 50 ml IV UD PRN; Protocol PRN Reason: Hypoglycemia Protocol Stop: 09/28/20 16:45 Diclofenac Sodium (Diclofenac Sodium 75 Mg Tabcr) 75 mg PO BID PRN PRN Reason: Pain Stop: 09/28/20 16:45 Last Admin: 09/01/20 01:38 Dose: 75 mg Documented by: Finasteride (Finasteride 5 Mg Tab) 5 mg PO QAM [facility] Stop: 09/29/20 08:59 Last Admin: 09/01/20 07:57 Dose: 5 mg Documented by: Glucagon (Glucagon For Inj 1 Mg Vial) 1 mg SQ UD PRN; Protocol PRN Reason: Hypoglycemia Protocol Stop: 09/28/20 16:45 Glucose (Glucose 10 Tabs/Tube) 4 - 8 tabs PO UD PRN; Protocol PRN Reason: Hypoglycemia Protocol Stop: 09/28/20 16:45 Glucose (Glucose 40% Gel 15 Gm Tube) 15 - 30 gm PO UD PRN; Protocol PRN Reason: Hypoglycemia Protocol Stop: 09/28/20 16:45 Hydrochlorothiazide (Hydrochlorothiazide 25 Mg Tab) 25 mg PO QAM [facility] Stop: 09/29/20 08:59 Last Admin: 09/01/20 07:56 Dose: 25 mg Documented by: Hydromorphone HCl (Hydromorphone Inj 0.5 Mg/0.5 Ml Syr) 0.5 mg IV Q30M PRN PRN Reason: severe uncontrolled pain Stop: 09/15/20 09:07 Insulin Aspart (Insulin Aspart 100 Units/Ml 3 Ml Pen) 0 units SC ACHS [facility] Stop: 09/28/20 17:14 Last Admin: 09/01/20 12:38 Dose: 2 units Documented by: Insulin Glargine (Insulin Glargine Solostar 100 Units/Ml 3 Ml Pen) 5 units SC BID [facility] Stop: 09/28/20 20:59 Last Admin: 09/01/20 08:53 Dose: 5 units Documented by: Losartan Potassium (Losartan Potassium 50 Mg Tab) 50 mg PO HS [facility] Stop: 09/28/20 21:59 Last Admin: 08/31/20 21:36 Dose: 50 mg Documented by: Miscellaneous (Carbohydrates For Hypoglycemia ) 15 - 30 gm PO UD PRN PRN Reason: Hypoglycemia Protocol Stop: 09/28/20 16:45 Morphine Sulfate (Morphine Sulfate 4 Mg/Ml 1 Ml Carp\Vial) 4 mg IV Q4H PRN PRN Reason: Severe Pain Stop: 09/14/20 18:15 Last Admin: 09/01/20 06:34 Dose: 4 mg Documented by: Ondansetron HCl (Ondansetron Inj 2 Mg/Ml 2 Ml Vial) 4 mg IV Q6H PRN PRN Reason: Nausea Stop: 09/28/20 16:45 Pantoprazole Sodium (Pantoprazole 40 Mg Tab) 40 mg PO DAILYBB [facility] Stop: 09/29/20 06:29 Last Admin: 09/01/20 06:37 Dose: 40 mg Documented by: Polyethylene Glycol (Polyethylene (Miralax) 17 Gm Pack) 17 gm PO DAILY PRN PRN Reason: Constipation Stop: 09/28/20 16:45 Last Admin: 08/30/20 20:14 Dose: 17 gm Documented by: Tamsulosin HCl (Tamsulosin Hcl 0.4 Mg Cap) 0.4 mg PO [facility] Stop: 09/29/20 08:59 Last Admin: 09/01/20 07:56 Dose: 0.4 mg Documented by: Venlafaxine HCl (Venlafaxine Hcl Xr 37.5 Mg Capxr) [facility] Stop: 09/29/20 08:59 Last Admin: 09/01/20 07:56 Dose: 37.5 mg Documented by:
[2020-09-01] MEDS: LOSARTAN POTASSIUM 50 MG TAB PO SCH (21:02)
[2020-09-01] MEDS: ASPIRIN 81 MG ECTAB PO SCH (21:02)
[2020-09-01] MEDS: HYDROmorphone HCL 2 MG TAB PO PRN (21:06)
[2020-09-02] MEDS: PANTOprazole 40 MG TAB PO SCH (06:06)
[2020-09-02] MEDS: HYDROmorphone HCL 2 MG TAB PO PRN (06:09)
[2020-09-02 08:30] LABS: BUN Creatinine Ratio 25.9 (10-20); Calcium 9.4 mg/dl (8.5-10.1); Creatinine Clr Calc Pharmacy 64.6 ml/min; Est GFR (African American) 66.5; Est GFR (Non-African American) 57.4; Potassium 3.4 mmol/L (3.5-5.1)
[2020-09-02] MEDS: TAMSULOSIN HCL 0.4 MG CAP PO SCH (08:31)
[2020-09-02] MEDS: VENLAFAXINE HCL XR 37.5 MG CAPXR PO SCH (08:31)
[2020-09-02] MEDS: hydroCHLOROthiazide 25 MG TAB PO SCH (08:31)
[2020-09-02] MEDS: CLOPIDOGREL BISULFATE 75 MG TAB PO SCH (08:31)
[2020-09-02] MEDS: FINASTERIDE 5 MG TAB PO SCH (08:32)
[2020-09-02] MEDS: POLYETHYLENE (MIRALAX) 17 GM PACK PO PRN (08:34)
[2020-09-02] MEDS: INSULIN GLARGINE SOLOSTAR 100 UNITS/ML 3 ML PEN SC SCH (08:41)
[2020-09-02] MEDS: INSULIN ASPART 100 UNITS/ML 3 ML PEN SC SCH ×2 (08:41→12:07)
[2020-09-02] MEDS ORDERED: ENOXAPARIN INJ 40 MG/0.4 ML SYR SQ SCH (09:00)
[2020-09-02] MEDS ORDERED: POTASSIUM CHLORIDE CRTAB 20 MEQ TABCR PO STA (09:41)
--- NOTE | 2020-09-02 11:19 | Hospitalist Progress Note ---
Date of Service September 02, 2020 Assessment & Plan (1) Lumbar stenosis with neurogenic claudication: Patient is opting for conservative management with ice, rest, NSAIDs, Tylenol as needed and narcotics as needed. Orthopedic spine surgeon was consulted and discussed surgical options to which the patient declined. PT/OT advised for rehab Patient is ready to be discharged this afternoon to [facility] Low potassium Supplemented (2) CKD (chronic kidney disease), stage III: Chronic, stable, around his baseline. Monitor BMP on diclofenac. Creatinine is 1.21 today which is normal (3) Hypertension: Chronic, stable, continue current medication management with lisinopril and hydrochlorothiazide per home regimen. Remains controlled (4) Acquired left foot drop: 2/2 prior brain surgery, patient states this is chronic. Cont palliative care and pain control efforts for back pain and continue working with PT and OT. (5) Depression: Chronic, stable, continue continue venlafaxine per home regimen. (6) DVT prophylaxis: SCDs Full code Disposition-to rehab once pain is controlled and patient is not needing any intravenous narcotic medications. Remains stable and will be discharged to [facility] this afternoon Admission and Anticipated Discharge Date Admission Date: August 30, 2020 Subjective 09/02/2020 The patient was seen and examined in medical telemetry unit He has been complaining of back pain and left leg weakness Denies any other significant symptoms and is ready to be discharged Review of Systems Review of Systems: All systems reviewed and are unremarkable except as noted below Musculoskeletal: + back pain and + muscle weakness (Involving the left lower extremity) Physical Exam Physical Exam: Lying in bed comfortably Constitutional: well developed, well nourished and + obese Eyes: PERRL, conjunctivae normal, anicteric sclerae ENMT: external ear and nose normal, oropharynx normal Neck: trachea midline, no thyromegaly Respiratory: no respiratory distress Auscultation: lungs clear to auscultation bilaterally Cardiovascular: Rate/Rhythm: regular rate and regular rhythm Heart Sounds: no murmur Gastrointestinal (Abdomen): Inspection/Auscultation: normal bowel sounds; abdomen not distended Percussion/Palpation: abdomen soft; abdomen nontender Musculoskeletal: Spine: + lumbar spinal tenderness and + straight leg raise positive (On the left side) Neurologic: Alert, awake and oriented times3 Psychiatric: A+Ox3, euthymic affect Lymphatic: no cervical or axillary lymphadenopathy Results & Data Results & Data ([facility]) Vital Signs (Past 12 Hours) Vital Signs Temp Pulse Resp BP BP Pulse Ox 09/02/20 10:12 36.8 C 76 18 113/76 120/76 91 09/02/20 07:38 36.8 C 76 18 113/76 91 09/02/20 00:08 36.4 C L 80 19 120/76 95 Laboratory Results [facility] 09/02/20 07:27 Sodium 137 Potassium 3.4 L Chloride 104 Carbon Dioxide 26 BUN 31 H Creatinine 1.21 Glucose 173 H Calcium 9.4 Medications Administered Current Inpatient Medications Acetaminophen (Acetaminophen 325 Mg Tab) 650 mg PO Q4H PRN PRN Reason: Pain or Fever Stop: 09/28/20 16:45 Aspirin (Aspirin 81 Mg Ectab) 81 mg PO HS [facility] Stop: 09/28/20 20:59 Last Admin: 09/01/20 21:02 Dose: 81 mg Documented by: Clopidogrel Bisulfate (Clopidogrel Bisulfate 75 Mg Tab) 75 mg PO QAM [facility] Stop: 09/29/20 08:59 Last Admin: 09/02/20 08:31 Dose: 75 mg Documented by: Cyclobenzaprine HCl (Cyclobenzaprine Hcl 5 Mg Tab) 5 mg PO TID PRN PRN Reason: Spasms Stop: 09/28/20 16:45 Last Admin: 08/31/20 00:28 Dose: 5 mg Documented by: Dextrose (Dextrose 50% 50 Ml Syringe) 25 - 50 ml IV UD PRN; Protocol PRN Reason: Hypoglycemia Protocol Stop: 09/28/20 16:45 Diclofenac Sodium (Diclofenac Sodium 75 Mg Tabcr) 75 mg PO BID PRN PRN Reason: Pain Stop: 09/28/20 16:45 Last Admin: 09/01/20 01:38 Dose: 75 mg Documented by: Enoxaparin Sodium (Enoxaparin Inj 40 Mg/0.4 Ml Syr) 40 mg SQ QAM [facility] Stop: 10/02/20 08:59 Last Admin: 09/02/20 10:28 Dose: Not Given Documented by: Finasteride (Finasteride 5 Mg Tab) 5 mg PO QAM [facility] Stop: 09/29/20 08:59 Last Admin: 09/02/20 08:32 Dose: 5 mg Documented by: Glucagon (Glucagon For Inj 1 Mg Vial) 1 mg SQ UD PRN; Protocol PRN Reason: Hypoglycemia Protocol Stop: 09/28/20 16:45 Glucose (Glucose 10 Tabs/Tube) 4 - 8 tabs PO UD PRN; Protocol PRN Reason: Hypoglycemia Protocol Stop: 09/28/20 16:45 Glucose (Glucose 40% Gel 15 Gm Tube) 15 - 30 gm PO UD PRN; Protocol PRN Reason: Hypoglycemia Protocol Stop: 09/28/20 16:45 Hydrochlorothiazide (Hydrochlorothiazide 25 Mg Tab) 25 mg PO QAM [facility] Stop: 09/29/20 08:59 Last Admin: 09/02/20 08:31 Dose: 25 mg Documented by: Hydromorphone HCl (Hydromorphone Hcl 2 Mg Tab) 2 mg PO Q4H PRN PRN Reason: severe breakthrough pain Stop: 09/15/20 17:08 Last Admin: 09/02/20 06:09 Dose: 2 mg Documented by: Insulin Aspart (Insulin Aspart 100 Units/Ml 3 Ml Pen) 0 units SC ACHS [facility] Stop: 09/28/20 17:14 Last Admin: 09/02/20 08:41 Dose: 4 units Documented by: Insulin Glargine (Insulin Glargine Solostar 100 Units/Ml 3 Ml Pen) 5 units SC BID [facility] Stop: 09/28/20 20:59 Last Admin: 09/02/20 08:41 Dose: 5 units Documented by: Losartan Potassium (Losartan Potassium 50 Mg Tab) 50 mg PO HS [facility] Stop: 09/28/20 21:59 Last Admin: 09/01/20 21:02 Dose: 50 mg Documented by: Miscellaneous (Carbohydrates For Hypoglycemia ) 15 - 30 gm PO UD PRN PRN Reason: Hypoglycemia Protocol Stop: 09/28/20 16:45 Morphine Sulfate (Morphine Sulfate 4 Mg/Ml 1 Ml Carp\Vial) 4 mg IV Q4H PRN PRN Reason: Severe Pain Stop: 09/14/20 18:15 Last Admin: 09/01/20 06:34 Dose: 4 mg Documented by: Ondansetron HCl (Ondansetron Inj 2 Mg/Ml 2 Ml Vial) 4 mg IV Q6H PRN PRN Reason: Nausea Stop: 09/28/20 16:45 Pantoprazole Sodium (Pantoprazole 40 Mg Tab) 40 mg PO DAILYBB [facility] Stop: 09/29/20 06:29 Last Admin: 09/02/20 06:06 Dose: 40 mg Documented by: Polyethylene Glycol (Polyethylene (Miralax) 17 Gm Pack) 17 gm PO DAILY PRN PRN Reason: Constipation Stop: 09/28/20 16:45 Last Admin: 09/02/20 08:34 Dose: 17 gm Documented by: Tamsulosin HCl (Tamsulosin Hcl 0.4 Mg Cap) 0.4 mg PO [facility] Stop: 09/29/20 08:59 Last Admin: 09/02/20 08:31 Dose: 0.4 mg Documented by: Venlafaxine HCl (Venlafaxine Hcl Xr 37.5 Mg Capxr) [facility] [place] Stop: 09/29/20 08:59 Last Admin: 09/02/20 08:31 Dose: 37.5 mg Documented by:
--- NOTE | 2020-09-03 07:43 | Discharge Summary ---
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 Patient states that he had severe lower back pain associated with left hip pain 1 week ago which currently improved with pain medications. He stated that low back pain radiated to left leg, with no relieving factors initially and worsens with minimal exertion. Reports having poor sleep secondary to the pain, contacted PCP for the same and was prescribed Voltaren which improved his symptoms. He admits to having chronic left hemiparesis since craniotomy in 2008 but noticed worsening left leg weakness since last few days resulting in at least 4 falls yesterday. He denies any head trauma, loss of consciousness, dizziness, vertigo, headache, change in vision. He has been using walker for ambulation since the fall. He was also seen by chiropractor on Monday which did not resolve his symptoms. He also reports having left leg numbness associated with tingling and muscle twitches. Denies any history of chest pain, SOB, palpitations, orthopnea, dizziness, cough, hemoptysis, fever, chills, bowel/bladder incontinence, nausea, vomiting, abdominal pain, blood in stools, diarrhea, change in appetite, dysuria, hematuria. Admission Exam Per Admitting Provider Physical Exam: Physical Exam: Vitals signs as noted above General Appearance:Moderately built and nourished, no apparent distress Head: normocephalic, Atraumatic Eyes: normal inspection, EOMI, PERRL Neck: supple, Trachea midline Respiratory/Chest: Normal breath sounds, CTA, No accessory muscle use Cardiovascular: S1, S2, No murmur Abdomen/GI:Soft, Non tender, Bowel sounds present Extremities/Musculoskelatal:normal inspection, no edema Neurologic/Psych:AAOX3, left foot drop, left lower extremity > left upper extremity weakness 3-4/5, chronic left ankle swelling Skin: normal color, warm Principal Diagnosis Lumbar stenosis with neurogenic claudication, CKD stage III, hypertension, depression and acquired left foot drop secondary to prior brain surgery Discharge Exam Constitutional well developed, well nourished and + obese Eyes PERRL, conjunctivae normal, anicteric sclerae ENMT external ear and nose normal, oropharynx normal Neck trachea midline, no thyromegaly Respiratory no respiratory distress Auscultation: lungs clear to auscultation bilaterally Cardiovascular Rate/Rhythm: regular rate and regular rhythm Heart Sounds: no murmur Gastrointestinal (Abdomen) Inspection/Auscultation: normal bowel sounds; abdomen not distended Percussion/Palpation: abdomen soft; abdomen nontender Musculoskeletal Spine: + lumbar spinal tenderness and + straight leg raise positive (On the left side) Psychiatric A+Ox3, euthymic affect Lymphatic no cervical or axillary lymphadenopathy Discharge Data Allergies Allergy/AdvReac Type Severity Reaction Status Date / Time adhesive Allergy Mild RASH Verified 08/29/20 10:30 meloxicam Allergy Mild rash Verified 08/29/20 10:30 benazepril Allergy Unknown rash Verified 08/29/20 10:30 Cipro Allergy Unknown rash Unverified 10/06/16 09:59 ciprofloxacin Allergy Unknown rash Verified 08/29/20 10:30 latex Allergy Unknown RASH, Verified 08/29/20 10:30 ITCHY, HIVES lubiprostone Allergy Unknown UNKNOWN Verified 08/29/20 10:30 yellow dye Allergy Unknown UNKNOWN Verified 08/29/20 10:30 tolterodine AdvReac Mild BREASTS Verified 08/29/20 10:30 ORA AND ADWOA Consultations 08/29/20 11:55 ED Decision to Admit Stat 08/29/20 16:46 Consult Case Management - Discharge Planning Routine Consult Orthopedic Surgery Routine Ordered Studies 08/29/20 09:09 CT angio head w con Stat CT angio neck with con Stat CT head/brain wo con Stat 08/29/20 11:55 MR brain wo con Stat MR lumbar spine wo con Stat Hospital Course (1) Lumbar stenosis with neurogenic claudication: Patient is opting for conservative management with ice, rest, NSAIDs, Tylenol as needed and narcotics as needed. Orthopedic spine surgeon was consulted and discussed surgical options to which the patient declined. PT/OT advised for rehab Patient is ready to be discharged this afternoon to [facility] Low potassium Supplemented (2) CKD (chronic kidney disease), stage III: Chronic, stable, around his baseline. Monitor BMP on diclofenac. Creatinine is 1.21 today which is normal (3) Hypertension: Chronic, stable, continue current medication management with lisinopril and hydrochlorothiazide per home regimen. Remains controlled (4) Acquired left foot drop: 2/2 prior brain surgery, patient states this is chronic. Cont palliative care and pain control efforts for back pain and continue working with PT and OT. (5) Depression: Chronic, stable, continue continue venlafaxine per home regimen. (6) DVT prophylaxis: SCDs Full code Disposition-to rehab once pain is controlled and patient is not needing any intravenous narcotic medications. Remains stable and will be discharged to [facility] this afternoon Total Time Total Time Spent Total Time Spent (In Minutes): 35 minutes Total Time Includes: Examination of the Patient, Discharge Planning, Medication Reconciliation and Communication With Other Providers Discharge Plan Discharge Items Patient Disposition: Transfer Inpatient Rehab Fac Reason For Visit: LEFT LEG WEAKNESS Discharge Diagnosis: Lumbar stenosis with neurogenic claudication, CKD stage III, hypertension, depression and acquired left foot drop secondary to prior brain surgery Condition on Discharge: Good Activity: Resume your previous activity Activity Comment: Continue PT and OT as advised Non-emergency contact: Primary Care Provider Call non-emergency contact if: you have any medication questions and your symptoms worsen Follow-up/Referrals: Tung Greco MD [Primary Care Provider] - (Date & Time 09/07/2020 10:00 AM Provider Tung Greco MD Department Family Practice [facility] ) Diet: Carb Consistent or DM2 Addtl Attending Provider Instructions: Please take precaution to avoid falls Try to take narcotics medications wisely to prevent complications Pending Studies at Discharge: No Stand-Alone Forms: My [facility] Skilled Items Patient informed of condition?: Yes DNR: No Discharge Level of Care: Acute rehab Communicable Disease: No Discharge Prognosis: Stable Lines: None Urinary Catheter: No Medications and DC Order Prescriptions: New hydromorphone [Dilaudid] 2 mg Tablet 2 mg PO Q4H PRN (Reason: pain) 5 Days Qty: 30 RF: 0 Continued tamsulosin 0.4 mg Capsule 0.4 mg PO QAM RF: 0 Metamucil Sugar-Free (aspart) 3.4 gram/5.8 gram Powder 1 dose PO QPM RF: 0 hydrochlorothiazide 25 mg tablet 25 mg PO QAM RF: 0 venlafaxine 37.5 mg capsule,extended release 24hr 37.5 mg PO QAM RF: 0 aspirin 81 mg Tablet,Delayed Release (Dr/Ec) 81 mg PO HS RF: 0 diclofenac sodium 75 mg tablet,delayed release (DR/EC) 75 mg PO BID RF: 0 acetaminophen-codeine 300-60 mg tablet 1 tab PO Q6H PRN (Reason: Pain) RF: 0 metformin 500 mg tablet extended release 24 hr 500 mg PO QAM RF: 0 finasteride 5 mg tablet 5 mg PO QAM RF: 0 clopidogrel [Plavix] 75 mg tablet 75 mg PO QAM RF: 0 losartan 50 mg tablet 50 mg PO HS RF: 0 pantoprazole 40 mg tablet,delayed release (DR/EC) 40 mg PO DAILYBB RF: 0 cyclobenzaprine 5 mg PO TID PRN (Reason: Spasms) RF: 0 Discharge Orders: Discharge Order (Routine); Ordered 09/02/20 Ordered By: Jonah Aguilar/Other Patient Handouts: Managing Type 2 Diabetes Admission Data Admit Date/Time: 08/30/20 19:32 Attending Provider: Jonah Heredia Admit Provider: Kwadwo Steinberg Primary Care Provider: Tung Greco Other Providers: Kwadwo Steinberg ; Gee Miller ; Anni Edmondson [facility] ; [facility] ; Olga Lenz Other Interventions: Discharge Summary Assessment (RN) Last Done: 09/02/20 10:12
== END 2020-09-02 13:06 | DRG 552 ==
LOC: 2N 09:05 → ED 09:05 → SUATTDRO 14:43 → 2N 16:08 → SUATTDRO 08-30 19:32

== ENCOUNTER 2025-08-23 04:28 | Inpatient (IN) ==
--- NOTE | 2025-08-23 04:37 | Emergency Department Note ---
Impression & Plan Vertigo Admission ED Provider Note HPI: History obtained from patient. The patient is a 80-year-old gentleman with history of type 2 diabetes, GERD, history of laminectomy, chronic kidney disease, who presents the emergency department with chief complaint of dizziness for the past day. Patient states that since yesterday he has had some difficulty with movement of his head and positional changes causing severe dizziness. He states he has had similar symptoms in the past associated with vertigo. Patient mentions that yesterday he got up from his chair and felt some numbness in his left lower leg radiating from his back. He states this caused a fall. He states this was transient and is now resolved. Patient states he does have chronic issues with his lower back. On arrival here to the ED the patient is hemodynamically stable, he is alert, he does not have any focal deficits, he ambulates all extremity spontaneously without issue. Patient denies any current complaint of pain on my initial assessment. ROS: - Per HPI Differential Diagnosis: Peripheral vertigo, central vertigo/posterior circulation stroke, intracranial hemorrhage, critical electrolyte abnormalities, arrhythmia, ACS, amongst other potential pathologies. *Outpatient medications and allergy history reviewed. PE: General: Alert HEENT: Normocephalic, trachea midline Eyes: Extraocular eye movement is intact, no scleral erythema Pulmonary: Clear to auscultation bilaterally, no wheezing Cardio: Regular rate and rhythm GI: Abdomen is soft to palpation : No suprapubic tenderness MSK: No evidence of trauma or malformation of the extremities, no edema Skin: No evidence of rash Neuro: Alert, no focal deficits, no ataxia on [id number] testing bilaterally, no drift of the upper extremities or lower extremities with testing against gravity, equal bilateral oracle r12 developer strength Psychiatric: Cooperative INDEPENDENT INTERPRETATIONS: nurse monitoring: (As interpreted by myself): - An order was placed for continuous cardiac monitoring - Patient was noted to be in sinus rhythm with a rate of 65 EKG: (As interpreted by myself): Rate: 68 Rhythm: Normal sinus rhythm Intervals: Within normal limits ST changes: No ST elevation Time: 0433 Chest x-ray: (As interpreted by myself): No acute disease Interventions provided in ED: - IV fluids, meclizine Medical Decision Making: IV was established and lab work obtained, patient was placed on monitor tech. CT imaging of the head was obtained that did not show any evidence of any acute intracranial process. Patient was given IV fluids and meclizine for suspected vertigo as he has had similar symptoms in the past and his symptoms do seem to worsen acutely with movement of his head. Lab work shows no leukocytosis, hemoglobin is normal, platelet count is normal, CMP does not show any evidence of any critical findings. Troponin is negative x 1. EKG per my interpretation shows normal sinus rhythm without any acute ischemic changes. CT imaging of the head did not show any evidence of any acute intracranial process, on my reassessment the patient states he is feeling improved. He was ambulated by the bedside RN and unfortunately did have recurrent episodes of dizziness with attempted ambulation and standing up from the bed. Given this I do feel he will likely require admission for further management. He does not have any ataxia on [id number] testing bilaterally, he has had similar symptoms in the past associated with vertigo, I have low suspicion for acute stroke. Patient was [facility] and the patient was placed for admission in stable condition. Consultants/Discussions held with other healthcare providers: [facility] Dr. G[facility] Disposition discussion held by myself with: - Patient Diagnosis: 1. Dizziness, acute, intractable 2. Ambulatory dysfunction, acute Disposition: Admission Giorgio Johnston DO Emergency Medicine Past Med/Surg History Problem List (Updated 08/23/25 @ 06:29 by Giorgio Johnston DO) Sacroiliitis Opioid dependence with current use Lumbar post-laminectomy syndrome History of lumbar laminectomy Spinal stenosis of lumbar region Lumbar radiculopathy Rotator cuff arthropathy of left shoulder Depression Acquired left foot drop 2/2 brain surgery, wears brace and uses cane CKD (chronic kidney disease), stage III Lumbar stenosis with neurogenic claudication (Acute) Hypertension (Chronic) Vertigo (Chronic) GERD (gastroesophageal reflux disease) (Chronic) DM type 2 (diabetes mellitus, type 2) (Chronic) Left sided numbness (Acute) Medical History History of prostate cancer "positive family history of prostate cancer Rising PSA biopsy positive for adenocarcinoma Cherie grade 3+3 biopsy stage TIIc presenting PSA 5.9 Status post completion of radiation therapy utilizing IMRT/IGRT completed 08/01/2012 received 7800 cGy " PROSTATE (APPROX 2012, S/P XRT, NO SURGERY) AND SKIN 2nd degree burn Partial thickness burn TIA (transient ischemic attack) 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 GERD (gastroesophageal reflux disease) Osteoarthritis Personal history of DVT (deep vein thrombosis) FOLLOWING BRAIN SURGERY ...LEFT LEG DVT - NO CLOTS SINCE Diabetes mellitus, type 2 Hyperlipidemia Hypertension Surgical History Hx of colonoscopy Hx of breast surgery X3 FOR FIBROUS TUMORS - BENIGN Nausea and vomiting after administration of anesthetic agent History of back surgery 2010 LAMINECTOMY Hx of brain surgery For cavernous hemangioma History of inferior vena caval filter placement HX JOVANNA FILTER AFTER DVT History of brain surgery "spontaneous brain hematoma s/p R lobe craniotomy for parietal mass removal in [address] Mendoza with residual L sided weakness and L sided drop foot " Family History Mother Family hx of colon cancer Grandmother Family hx of colon cancer Social History Smoking Status: Former smoker Tobacco Type: Cigarettes and Pipe Age Started Using Tobacco: 14; Age Quit Using Tobacco: 38; packs per day: 0; Cigarettes Per Day: 1PPD X 24; Do You Dip or Chew Tobacco: No; Hx Alcohol Use: Yes Alcohol type: beer Alcohol Intake Frequency: Monthly or Less Hx Substance Use: No Preferred Language: Chinese Communication Ability: Effective Visual Impairment: No Limitations Hearing Ability: Normal Online Marketing Specialist Required: No Beliefs That Will Affect Care: None marital status: Current Living Situation: Spouse Current Living Situation Comment: , dog, cat current occupational status: retired How many Children do You have: 2 How many Children do You have Comment: 1 boy, 1 girl Feels Safe at Home: Yes Childhood Exposure to Second-Hand Smoke: Yes Diet: regular caffeine: Yes (trying to quit drinking caffeine since starting recent medication) Dental Care, Regularly: Yes Physical Activity Frequency: Does not Exercise Physical Activity Frequency Comment: has difficulties with back Seatbelt Use: always Sunscreen Use: No Assistive Devices: Glasses and Walker Allergies Allergies Allergy/AdvReac Type Severity Reaction Status Date / Time latex Allergy Intermediate RASH, Verified 08/14/25 13:03 ITCHY, HIVES adhesive Allergy Mild RASH Verified 08/14/25 13:03 benazepril Allergy Mild rash Verified 08/14/25 13:03 ciprofloxacin Allergy Mild rash Verified 08/14/25 13:03 meloxicam Allergy Mild rash Verified 08/14/25 13:03 lubiprostone Allergy Unknown UNKNOWN Verified 08/14/25 13:03 tolterodine AdvReac Intermediate BREASTS Verified 08/14/25 13:03 SWELL AND HURT Tape Allergy Mild SKIN Uncoded 08/14/25 13:03 IRRITATION Influenza Virus Vaccine Whole Allergy Unknown Unknown Uncoded 08/14/25 13:03 Home Meds Home Medications Medication Instructions Recorded Confirmed hydrochlorothiazide 25 mg tablet 25 mg PO QAM 01/26/19 08/14/25 aspirin 81 mg tablet,delayed 81 mg PO HS 08/29/20 08/14/25 release losartan 50 mg tablet 50 mg PO QAM 03/18/24 08/14/25 polyethylene glycol 3350 17 gram 17 g PO DAILY PRN 06/02/25 08/14/25 oral powder packet (Miralax) carvedilol 3.125 mg tablet 3.125 mg PO DAILY 08/14/25 08/14/25 hydromorphone 2 mg tablet 2 mg PO QID PRN 08/14/25 08/14/25 Previous Rx's Medication Instructions Recorded pantoprazole 20 mg tablet,delayed 20 mg PO DAILY #100 tabs 04/17/25 release metoprolol succinate 25 mg 12.5 mg (1/2 x 25 mg) PO DAILY 100 04/29/25 tablet,extended release 24 hr days #50 tabs clopidogrel 75 mg tablet (Plavix) 75 mg PO QAM #100 tabs 05/20/25 tamsulosin 0.4 mg capsule 0.4 mg PO QAM #100 caps 05/20/25 metformin 500 mg tablet,extended 1,000 mg (2 x 500 mg) PO QAM 100 05/30/25 release 24 hr days #200 tabs Results & Data (ED) Vital Signs Vital Signs - 24 hr 08/23/25 04:32 08/23/25 04:32 08/23/25 04:32 Pulse Rate 68 Pulse Rate [Apical] 65 Pulse Rhythm Regular Pulse Rhythm [Apical] Regular Pulse Strength Normal Pulse Strength [Apical] Normal Respiratory Rate 16 12 Respiratory Effort / Characteristics Non-Labored Non-Labored Respiratory Depth Normal Normal Respiratory Pattern Regular Regular Blood Pressure 170/98 H Blood Pressure [Right Arm] 170/98 H Blood Pressure Mean 122 Blood Pressure Mean [Right Arm] 122 Blood Pressure Position Lying Blood Pressure Position [Right Arm] Lying Pulse Oximetry 95 94 Oxygen Delivery Method Room Air Room Air Sepsis Recent Fever Within 48 Hours No Sepsis New/Unexplained Change in Mental Status No Sepsis Action Taken by Nursing No Action Required 08/23/25 04:32 08/23/25 04:57 08/23/25 06:16 Pulse Rate 69 62 Pulse Rate [Apical] 64 Pulse Rhythm Regular Pulse Rhythm [Apical] Regular Pulse Strength Pulse Strength [Apical] Normal Respiratory Rate 14 14 Respiratory Effort / Characteristics Non-Labored Respiratory Depth Normal Respiratory Pattern Regular Blood Pressure Blood Pressure [Right Arm] 146/84 H Blood Pressure Mean Blood Pressure Mean [Right Arm] 104 Blood Pressure Position Blood Pressure Position [Right Arm] Lying Pulse Oximetry 97 96 Oxygen Delivery Method Room Air Room Air Sepsis Recent Fever Within 48 Hours Sepsis New/Unexplained Change in Mental Status Sepsis Action Taken by Nursing Laboratory Data 08/23/25 04:39 08/23/25 04:39 Lab Results 08/23/25 08/23/25 Range/Units 04:39 05:35 WBC 8.60 (4.8-10.8) K/ul RBC 5.26 (4.70-6.10) M/uL Hgb 15.9 (14.0-18.0) g/dL Hct 45.4 (42.0-52.0) % MCV 86.3 (80.0-100.0) fL MCH 30.2 (25.0-34.0) pg MCHC 35.0 (32.0-36.0) g/dL RDW Std Deviation 41.7 (36.4-46.3) fL RDW Coeff of Amaya 13.4 (11.5-14.5) % Plt Count 280 (130-400) K/uL MPV 8.8 L (9.4-12.4) fL Immature Gran % (Auto) 0.1 % Neut % (Auto) 47.0 % Lymph % (Auto) 42.0 % Orange % (Auto) 9.1 % Eos % (Auto) 1.2 % Baso % (Auto) 0.6 % Neut # (Auto) 4.05 (1.40-6.50) K/uL Lymph # (Auto) 3.61 H (1.20-3.40) K/uL Orange # (Auto) 0.78 H (0.11-0.59) K/uL Eos # (Auto) 0.10 (0.00-0.50) K/uL Baso # (Auto) 0.05 (0.00-0.20) K/uL Immature Gran # (Auto) 0.01 (0.01-0.20) K/uL PT Cancelled 11.2 INR Cancelled 1.1 Sodium 135 L (136-145) mmol/L Potassium 3.3 L (3.5-5.1) mmol/L Chloride 99 (98-107) mmol/L Carbon Dioxide 26 (21-32) mmol/L Anion Gap 10 (3-11) BUN 15 (6-23) mg/dl Creatinine 0.89 (0.6-1.4) mg/dl Est Cr Clr Drug Dosing 80.8 ml/min eGFR 85.56 BUN/Creatinine Ratio 16.9 (10-20) Glucose 177 H (70-99(Fasting)) mg/dl Calcium 9.5 (8.6-10.3) mg/dl Total Bilirubin 0.4 (0.2-1.0) mg/dl AST 11 L (13-39) U/L ALT 10 (7-52) U/L Alkaline Phosphatase 75 (34-104) U/L Troponin I High Sens 3.5 (0-20) pg/ml Total Protein 7.0 (6.0-8.3) gm/dl Albumin 3.9 (3.4-5.0) gm/dl Globulin 3.1 (2.5-4.0) gm/dl Albumin/Globulin Ratio 1.3 (0.9-2) Lipase 12 (11-82) U/L Administered Medications Discontinued Medications Sodium Chloride (Nss) 500 mls @ 999 mls/hr IV .Q31M STA Stop: 08/23/25 05:02 Last Infusion: 08/23/25 05:28 Dose: Infused Documented By: janie Admin: 08/23/25 04:46 Dose: 999 mls/hr Documented By: janie Meclizine HCl (Meclizine Hcl 25 Mg Tab) 25 mg PO NOW STA Stop: 08/23/25 04:34 Last Admin: 08/23/25 04:45 Dose: 25 mg Documented By: vgr Imaging Data Radiologist's Impression: Chest X-Ray 08/23/25 04:32 EXAM: XR chest 1V portable CLINICAL HISTORY: Dizzy. TECHNIQUE: An X-ray image of the chest is obtained in AP projection. COMPARISON: prior 03/18/2024 FINDINGS: Pulmonary Parenchyma: Lungs are clear bilaterally. No evidence of consolidation, collapse, or focal opacities. No pulmonary nodules are identified. No evidence of pleural effusion or pleural thickening. Heart and Mediastinum: Heart size and shape are normal. No mediastinal widening or masses. No hilar or mediastinal lymphadenopathy. Unfolded aorta. Bony Thorax: Degenerative changes of the shoulders and spine. Bony thorax appears intact without fractures or deformities. Soft Tissues: Soft tissues overlying the chest wall are unremarkable. IMPRESSION: 1. No acute cardiopulmonary abnormalities are identified. 2. No time interval changes. Electronically signed by Sb Garcia 08-23-2025 05:[address] 08/23/25 04:32 EXAM: CT head/brain wo con CLINICAL HISTORY: dizzy TECHNIQUE: Multiple axial images are obtained from the skull base to the vertex without contrast. CT scan was performed according to ALARA (as low as reasonably achievable). COMPARISON: 09:53:41 HEALTH AND SAFETY CONSULTANT. FINDINGS: Right parietal cranioplasty status. Focal encephalomalacia/gliosis noted involving right parietal lobe - sequelae of prior insult. There is cerebral atrophy. No evidence of space occupying lesion, hemorrhage, edema, mass effect, midline shift, extra axial collection, or hydrocephalus is noted. Basal cisterns are symmetric and normal in size and configuration. There are scattered periventricular hypodensities as can be seen with chronic microvascular ischemic changes. The calvillo-white matter differentiation is preserved. Visualized paranasal sinuses and mastoid air cells are well aerated. Orbital contents are within normal limits. Bony structures are intact. IMPRESSION: 1. No evidence of acute intracranial abnormality is demonstrated. 2. Chronic microvascular ischemic changes.-stable. 3. Cerebral atrophy.-stable. 4. Right parietal cranioplasty status.-stable. 5. Focal encephalomalacia/gliosis noted involving right parietal lobe - sequelae of prior insult.-stable. Electronically signed by Caleb Crespo 08-23-2025 05:53 AM Discharge Plan Visit Data Chief Complaint: Dizziness Stated Complaint: Dizziness, L Leg Numbness ED Provider: Giorgio Johnston Discharge Problem: Vertigo Patient Disposition: Admitted As Inpatient Condition: Fair Forms Stand Alone Forms: My [facility], Important Visit Information Prescriptions Prescriptions: No Action hydromorphone 2 mg tablet 2 mg PO QID PRN carvedilol 3.125 mg tablet 3.125 mg PO DAILY pantoprazole 20 mg tablet,delayed release (DR/EC) 20 mg PO DAILY Qty: 100 1RF metoprolol succinate 25 mg tablet extended release 24 hr 12.5 mg PO DAILY 100 Days Qty: 50 3RF tamsulosin 0.4 mg capsule 0.4 mg PO QAM Qty: 100 3RF clopidogrel [Plavix] 75 mg tablet 75 mg PO QAM Qty: 100 3RF metformin 500 mg tablet extended release 24 hr 1,000 mg PO QAM 100 Days Qty: 200 3RF hydrochlorothiazide 25 mg tablet 25 mg PO QAM Patient Comments: patient did not mention. found in external med history as recently filled. aspirin 81 mg Tablet,Delayed Release (Dr/Ec) 81 mg PO HS Rx Instructions: 03/29-otc unable to verify polyethylene glycol 3350 [Miralax] 17 gram powder in packet 17 g PO DAILY PRN Rx Instructions: 03/29-otc unable to verify losartan 50 mg tablet 50 mg PO QAM Referrals Referrals: Anila Doyle MD [Primary Care Provider] -
[2025-08-23] MEDS: MECLIZINE HCL 25 MG TAB PO STA ×2 (04:45→18:07)
[2025-08-23] MEDS: SODIUM CHLORIDE 0.9% 500 ML IV STA (04:46)
[2025-08-23 05:15] LABS: Hematocrit (blood only) 45.4 % (42.0-52.0); Hemoglobin 15.9 g/dL (14.0-18.0); Immature Granulocytes # (auto) 0.01 K/uL (0.01-0.20); Immature Granulocytes % (auto) 0.1 %; Mean Corpuscular Hemoglobin 30.2 pg (25.0-34.0); Mean Corpuscular Volume 86.3 fL (80.0-100.0); Platelet Count 280 K/uL (130-400); RDW Standard Deviation 41.7 fL (36.4-46.3); Red Blood Count 5.26 M/uL (4.70-6.10); White Blood Count 8.60 K/ul (4.8-10.8)
--- NOTE | 2025-08-23 05:28 | XRay Report ---
EXAM: XR chest 1V portable CLINICAL HISTORY: Dizzy. TECHNIQUE: An X-ray image of the chest is obtained in AP projection. COMPARISON: prior 03/18/2024 FINDINGS: Pulmonary Parenchyma: Lungs are clear bilaterally. No evidence of consolidation, collapse, or focal opacities. No pulmonary nodules are identified. No evidence of pleural effusion or pleural thickening. Heart and Mediastinum: Heart size and shape are normal. No mediastinal widening or masses. No hilar or mediastinal lymphadenopathy. Unfolded aorta. Bony Thorax: Degenerative changes of the shoulders and spine. Bony thorax appears intact without fractures or deformities. Soft Tissues: Soft tissues overlying the chest wall are unremarkable. IMPRESSION: 1. No acute cardiopulmonary abnormalities are identified. 2. No time interval changes. Electronically signed by Sb Garcia 08-23-2025 05:28 AM
[2025-08-23 05:32] LABS: Alanine Aminotransferase 10.0 U/L (7-52); Albumin Globulin Ratio 1.3 (0.9-2); Albumin Level 3.9 gm/dl (3.4-5.0); Alkaline Phosphatase 75.0 U/L (34-104); Anion Gap 10.0 (3-11); Bilirubin,Total 0.4 mg/dl (0.2-1.0); Blood Urea Nitrogen 15.0 mg/dl (6-23); Calcium 9.5 mg/dl (8.6-10.3); Carbon Dioxide 26.0 mmol/L (21-32); Chloride 99.0 mmol/L (98-107); Creatinine Clr Calc Pharmacy 80.8 ml/min; Globulin 3.1 gm/dl (2.5-4.0); Glucose 177.0 mg/dl (70-99(Fasting)); Lipase 12.0 U/L (11-82); Potassium 3.3 mmol/L (3.5-5.1); Sodium 135.0 mmol/L (136-145); Total Protein 7.0 gm/dl (6.0-8.3)
--- NOTE | 2025-08-23 05:53 | CT Scan Report ---
EXAM: CT head/brain wo con CLINICAL HISTORY: dizzy TECHNIQUE: Multiple axial images are obtained from the skull base to the vertex without contrast. CT scan was performed according to ALARA (as low as reasonably achievable). COMPARISON: 09:53:41 MODEL [employer]KER P[employer]IC. FINDINGS: Right parietal cranioplasty status. Focal encephalomalacia/gliosis noted involving right parietal lobe - sequelae of prior insult. There is cerebral atrophy. No evidence of space occupying lesion, hemorrhage, edema, mass effect, midline shift, extra axial collection, or hydrocephalus is noted. Basal cisterns are symmetric and normal in size and configuration. There are scattered periventricular hypodensities as can be seen with chronic microvascular ischemic changes. The calvillo-white matter differentiation is preserved. Visualized paranasal sinuses and mastoid air cells are well aerated. Orbital contents are within normal limits. Bony structures are intact. IMPRESSION: 1. No evidence of acute intracranial abnormality is demonstrated. 2. Chronic microvascular ischemic changes.-stable. 3. Cerebral atrophy.-stable. 4. Right parietal cranioplasty status.-stable. 5. Focal encephalomalacia/gliosis noted involving right parietal lobe - sequelae of prior insult.-stable. Electronically signed by Caleb Crespo 08-23-2025 05:53 AM
[2025-08-23 06:34] LABS: INR 1.1 (0.9-1.1); Prothrombin Time 11.2 Seconds (9.0-12.0)
--- NOTE | 2025-08-23 07:40 | XRay Report ---
EXAM: XR hip LT min 2V CLINICAL HISTORY: Recent fall TECHNIQUE: X-ray images of the left hip joints in AP and lateral projection. COMPARISON: No prior studies available for comparison. FINDINGS: Hip Joints: The left hip shows marked osteoarthritic changes, with osteophytes, joint space narrowing, and sclerosis noted. No evidence of hip dislocation or subluxation. There are signs of sacroiliitis and sacroiliac degenerative changes. Symphysis Pubis: Symphysis pubis is normal and intact. No evidence of separation or widening. Soft Tissues: Visualized soft tissues are normal and unremarkable. No soft tissue swelling, calcifications, or masses. Multiple prostatic brachytherapy beads are seen. Additional Findings: No other significant abnormalities were noted. IMPRESSION: 1. No evidence of acute fractures or dislocations. 2. But shows significant degenerative changes. 3. Generalized osteopenia. Disclaimer: A subtle bone abnormality or fracture may not be readily apparent on X-rays; thus, clinical correlation and further imaging, including follow-up CT, MRI, or follow-up X-rays, are advised as needed. Electronically signed by Sb Garcia 08-23-2025 07:40 AM
[2025-08-23] MEDS: POTASSIUM CHLORIDE CRTAB 20 MEQ TABCR PO STA (08:18)
--- NOTE | 2025-08-23 09:31 | History & Physical Report ---
Date of Service August 23, 2025 Assessment & Plan (1) Vertigo: (2) Gastroenteritis: (3) Lumbar stenosis with neurogenic claudication: (4) CKD (chronic kidney disease), stage III: (5) DM type 2 (diabetes mellitus, type 2): (6) Hypertension: Plan 80 y/o admitted for observation for acute on chronic vertigo resulting in gait unsteadiness, had nausea and diarrhea yesterday. # Acute on chronic vertigo, highly likely to be peripheral vertigo, perhaps labyrinthitis related to viral syndrome or BPPV Multiple episodes of vertigo in the past, though not this severe. - Similar in character to previous episodes. - No other acute OFFICE SERVICES COORDINATOR findings except for left leg numbness, which seems unrelated and is consistent with lumbar radiculopathy related to lumbar spinal stenosis. A stroke syndrome presenting with only vertigo and leg numbness would be very rare - (small brainstem or thalamic infarct), and leg numbness is clearly in a dermatomal pattern which is not typical for stroke either. - No increase in left lower extremity weakness compared to baseline and LLE sensation is intact to LT. - Nystagmus is peripheral based on exam. - Acute stroke is within the realm of possibility, though unlikely, especially with a chronic component and diarrhea and nausea suggestive of viral gastroenteritis. - May be a viral syndrome with labyrinthitis and gastroenteritis, particularly enterovirus and adenovirus can cause both. - Discussed the option of doing a brain MRI to completely rule out a stroke; patient is not enthusiastic about it. - Patient feels he needs to stay today because he does not feel steady enough with his walking to negotiate the stairs into his house. - Improvement after dose of meclizine given around 4 AM, which seems to have worn off partially. Plan: - Treat symptomatically for peripheral vertigo with scheduled meclizine and antiemetics as needed. - Order physical therapy once symptoms have improved to the point that he is safe to ambulate and negotiate stairs into his home. - Anticipate a 1 to 2 days stay - Allow a general diet since he has no abdominal pain or nausea. - Use p.r.n. Imodium and p.r.n. antiemetics with i.v. Zofran. # Lumbar radiculopathy Left leg numbness is consistent with lumbar radiculopathy or sciatica related to severe lumbar spinal stenosis. No back or leg pain. PT/OT eval, continue AFO # DM type 2 - hold metformin until good po. Recent A1c at goal - monitor BG, low dose PRN aspart if BG>180 no CR # Hx CVA - continue ASA, plavix, not on statin # Chronic musculoskeletal pain - at baseline Chronic left pelvis and hip pain from arthritis in SI joint and severe hip OA visible on x-ray. - Continue p.r.n. oral hydromorphone and APAP for chronic musculoskeletal pain. # Cough Resolving and consistent with a postviral cough. - Further evaluation warranted if it has not cleared up within a couple of weeks. - Chest x-ray was clear. - No fever or leukocytosis and no hypoxia, so acute respiratory infection is very unlikely. # HTN # CKD 3- stable -continue metoprolol XL and ARB -hold HCTZ (diarrhea) # BPH - cont tamsulosin # GERD - cont PPI # DVT Prophylaxis: SCDs and if remaining in hospital ordered enoxaparin ppx to start tomorrow night Medical Complexity: Medical decision making was moderate for this encounter. History of Present Illness Chief Complaint: vertigo, left leg numbness Primary Care Provider: Anila Doyle MD Mr. Baldo Guzman, 80, has a history of stroke, vertigo, high blood pressure, BPH, depression, lumbar spinal stenosis, left foot drop, stage 3 chronic kidney disease, type 2 diabetes, GERD, sacroiliitis, chronic opioid use, chronic pain, prostate cancer, cavernous hemangioma with two brain surgeries in 2008, DVT after brain surgery, high cholesterol, and hypertension. He has had surgeries including a craniotomy for cavernous hemangioma resulting in chronic LLE>LUE weakness, placement of an IVC filter (unclear if it was removed), and lumbar laminectomy. His medications at home include aspirin, low dose carvedilol, Plavix, hydrochlorothiazide, hydromorphone 2 mg taken four times a day as needed, losartan, metformin, metoprolol succinate 12.5 mg daily, low dose pantoprazole daily, and tamsulosin. Mr. Guzman reports ongoing vertigo, which has improved since he first came in. He doesn't feel dizzy when he's still, but it gets worse when he moves his head or stands up. He had nausea yesterday but feels better now, although he doesn't have much appetite. He hasn't vomited but had diarrhea all day yesterday along with the nausea. He doesn't have any upper respiratory symptoms. He has had a cough with light mucus for several weeks, which is slowly getting better. He hasn't had a fever, chills, sweats, or been around anyone sick. His is well. He hasn't had chest pain, shortness of breath, abdominal pain, bloody diarrhea, melena, painful urination, frequent or urgent urination, rashes, swollen or painful joints, or leg swelling. He was treated with meclizine 25 mg at 4 AM and 1 liter of normal saline. Yesterday, he experienced temporary numbness in his left lower leg that started from his back and caused him to fall. The numbness improved though still has dysesthesia of LLE, and he was able to walk and didn't have any pain or injuries from the fall. He has a history of lumbar spinal stenosis with similar symptoms. He has chronic weakness in his left leg and arm from previous brain surgery, which hasn't changed. He wears an AFO for chronic left foot drop. He hasn't had any sudden changes in his vision, though his eyesight has been slowly getting worse, and he sees an mexican food machine tender. He doesn't have tinnitus or hearing loss beyond his usual level. He hasn't had numbness in his face, arms, or right leg. He hasn't had trouble speaking or understanding others. He hasn't noticed any increase in weakness in his limbs beyond his usual level, except for the temporary weakness in his leg yesterday. His strength feels normal today, but he still feels some numbness. He doesn't have any low back pain right now. He has pain in his left SI area and left hip, which is typical for him. Allergies Allergy/AdvReac Type Severity Reaction Status Date / Time latex Allergy Intermediate RASH, Verified 08/14/25 13:03 ITCHY, HIVES adhesive Allergy Mild RASH Verified 08/14/25 13:03 benazepril Allergy Mild rash Verified 08/14/25 13:03 ciprofloxacin Allergy Mild rash Verified 08/14/25 13:03 meloxicam Allergy Mild rash Verified 08/14/25 13:03 lubiprostone Allergy Unknown UNKNOWN Verified 08/14/25 13:03 tolterodine AdvReac Intermediate BREASTS Verified 08/14/25 13:03 SWELL AND HURT Tape Allergy Mild SKIN Uncoded 08/14/25 13:03 IRRITATION Influenza Virus Vaccine Whole Allergy Unknown Unknown Uncoded 08/14/25 13:03 Home Medications Medication Instructions Recorded Confirmed Type hydrochlorothiazide 25 mg tablet 25 mg PO QAM 01/26/19 08/23/25 History aspirin 81 mg tablet,delayed 81 mg PO HS 08/29/20 08/23/25 History release losartan 50 mg tablet 50 mg PO QAM 03/18/24 08/23/25 History pantoprazole 20 mg tablet,delayed 20 mg PO DAILY #100 tabs 04/17/25 08/23/25 Rx release metoprolol succinate 25 mg 12.5 mg (1/2 x 25 mg) PO DAILY 100 04/29/25 08/23/25 Rx tablet,extended release 24 hr days #50 tabs clopidogrel 75 mg tablet (Plavix) 75 mg PO QAM #100 tabs 05/20/25 08/23/25 Rx tamsulosin 0.4 mg capsule 0.4 mg PO QAM #100 caps 05/20/25 08/23/25 Rx metformin 500 mg tablet,extended 1,000 mg (2 x 500 mg) PO QAM 100 05/30/25 08/23/25 Rx release 24 hr days #200 tabs polyethylene glycol 3350 17 gram 17 g PO DAILY PRN Constipation 06/02/25 08/23/25 History oral powder packet (Miralax) carvedilol 3.125 mg tablet 3.125 mg PO DAILY 08/14/25 08/23/25 History hydromorphone 2 mg tablet 2 mg PO QID PRN Pain 08/14/25 08/23/25 History Past Med/Surg History Problem List (Updated 08/23/25 @ 09:34 by Tari Gann MD) Gastroenteritis Sacroiliitis Opioid dependence with current use Lumbar post-laminectomy syndrome History of lumbar laminectomy Spinal stenosis of lumbar region Lumbar radiculopathy Rotator cuff arthropathy of left shoulder Depression Acquired left foot drop 2/2 brain surgery, wears brace and uses cane CKD (chronic kidney disease), stage III Lumbar stenosis with neurogenic claudication (Acute) Hypertension (Chronic) Vertigo (Chronic) GERD (gastroesophageal reflux disease) (Chronic) DM type 2 (diabetes mellitus, type 2) (Chronic) Left sided numbness (Acute) Medical History History of prostate cancer "positive family history of prostate cancer Rising PSA biopsy positive for adenocarcinoma Cherie grade 3+3 biopsy stage TIIc presenting PSA 5.9 Status post completion of radiation therapy utilizing IMRT/IGRT completed 08/01/2012 received 7800 cGy " PROSTATE (APPROX 2012, S/P XRT, NO SURGERY) AND SKIN 2nd degree burn Partial thickness burn TIA (transient ischemic attack) 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 GERD (gastroesophageal reflux disease) Osteoarthritis Personal history of DVT (deep vein thrombosis) FOLLOWING BRAIN SURGERY ...LEFT LEG DVT - NO CLOTS SINCE Diabetes mellitus, type 2 Hyperlipidemia Hypertension Surgical History Hx of colonoscopy Hx of breast surgery X3 FOR FIBROUS TUMORS - BENIGN Nausea and vomiting after administration of anesthetic agent History of back surgery 2010 LAMINECTOMY Hx of brain surgery For cavernous hemangioma History of inferior vena caval filter placement HX JOVANNA FILTER AFTER DVT History of brain surgery "spontaneous brain hematoma s/p R lobe craniotomy for parietal mass removal in [address] Mendoza with residual L sided weakness and L sided drop foot " Family History Mother Family hx of colon cancer Grandmother Family hx of colon cancer Social History Smoking Status: Former smoker Tobacco Type: Cigarettes and Pipe Age Started Using Tobacco: 14; Age Quit Using Tobacco: 38; packs per day: 0; Cigarettes Per Day: 1PPD X 24; Do You Dip or Chew Tobacco: No; Hx Alcohol Use: Yes Alcohol type: beer Alcohol Intake Frequency: Monthly or Less Hx Substance Use: No Preferred Language: Greenlandic Communication Ability: Effective Visual Impairment: No Limitations Hearing Ability: Normal Manager Part Required: No Beliefs That Will Affect Care: None marital status: Current Living Situation: Spouse Current Living Situation Comment: , dog, cat current occupational status: retired How many Children do You have: 2 How many Children do You have Comment: 1 boy, 1 girl Feels Safe at Home: Yes Childhood Exposure to Second-Hand Smoke: Yes Diet: regular caffeine: Yes (trying to quit drinking caffeine since starting recent medication) Dental Care, Regularly: Yes Physical Activity Frequency: Does not Exercise Physical Activity Frequency Comment: has difficulties with back Seatbelt Use: always Sunscreen Use: No Assistive Devices: Glasses and Walker Review of Systems Review of Systems: All systems reviewed & are unremarkable except as noted in HPI & below Physical Exam Physical Exam: General Appearance: Pleasant elderly gentleman, robust for age. Vital signs: Reviewed past 24h vital signs in EMR, unremarkable. HEENT: Pupils equal, round, reactive to light. Visual ocampo full. Respiratory: Lungs clear bilaterally. No rhonchi, rales, or wheezes. Mild cough. Nonlabored respirations. Cardiovascular: Regular heart, distant, no murmur. Gastrointestinal: Soft, nontender, nondistended. Bowel sounds present. Extremities: Warm, well perfused. No lower extremity edema. Skin: Warm, dry, no rashes. Neurological: Awake, alert, oriented x4. Normal speech. Face symmetric. EOMI. Pupils equal, round, reactive to light. Visual ocampo full. Nystagmus only when looking to extreme rightward with fast phase to right, suppresses with visual fixation. No vertical or torsional component. No nystagmus looking upward or leftward. Facial sensation intact V1-V3. No facial weakness. Tongue midline. Upper extremity strength 5/5 right, 5/5 left with subtle weakness left upper extremity. Right lower extremity strength 5/5. Left lower extremity strength 4/5 hip flexor, 4/5 knee extension. Wearing AFO for left foot drop, distal left strength not formally tested. Sensation intact to light touch arms, legs, torso. No dysmetria on [id number] or [id number] tests. Patellar reflexes 3+ left, 2+ right. Able to stand and walk with walker, assistance of one person to bathroom. More unsteady than usual; normally only uses cane. Psychiatric: Normal. Results & Data Results & Data Vital Signs (Past 12 Hours) Vital Signs Pulse Pulse Resp BP BP Pulse Ox O2 Del Method 08/23/25 09:03 70 13 171/82 H 96 Room Air 08/23/25 07:26 64 08/23/25 07:11 73 18 125/88 97 Room Air 08/23/25 06:16 64 14 146/84 H 96 Room Air 08/23/25 04:57 62 14 97 Room Air 08/23/25 04:32 69 08/23/25 04:32 65 12 170/98 H 94 Room Air 08/23/25 04:32 Room Air 08/23/25 04:32 68 16 170/98 H 95 Diagnostic Findings - Labs: - Hemoglobin A1c (07/21/2025): 7.2 - White blood count: 8.6 - Hemoglobin: 15.9 - Platelets: 280 - INR: 1.1 - Sodium: 135 - Potassium: 3.3 - BUN: 15 - Creatinine: 0.89 - Glucose: 177 - LFTs: Unremarkable - Troponin: 3.5 - Albumin: 3.9 - Lipase: 12 - Imaging: - X-ray left hip: No fracture/dislocation. Severe osteoarthritis, sacroiliitis, SI degenerative changes. - Head CT noncontrast: No acute abnormality. Chronic microvascular disease, cerebral atrophy, stable right parietal cranioplasty. Focal encephalomalacia right parietal lobe post stroke. - Chest x-ray: I personally reviewed and interpreted the CXR film - No acute issues or interval changes. Clear lung ocampo, no pleural effusions or mediastinal widening. - Diagnostic Testing: - I personally reviewed and interpreted the EKG: Normal sinus rhythm, normal axis, no acute ST changes. Normal EKG Code Status & VTE Plan VTE Prophylaxis Plan VTE Prophylaxis will be ordered: Yes PG Care Time/CCT Total # of Minutes Spent Total Time Spent with Patient: Total time spent is greater than 50% in coordination of care (as documented) at patient's floor/unit and/or counseling patient: Coding Level of Care Code 09540 INT INP/OBS CARE 2/55MIN Diagnoses Vertigo R42 Gastroenteritis K52.9 Lumbar stenosis with neurogenic claudication M48.062 CKD (chronic kidney disease), stage III N18.3 DM type 2 (diabetes mellitus, type 2) E11.9 Hypertension I10
[2025-08-23] MEDS: MECLIZINE HCL 25 MG TAB PO SCH (09:37)
[2025-08-23] MEDS ORDERED: ALUMINUM/MAGNESIUM SUSP 30 ML UDC PO PRN (11:06)
[2025-08-23] MEDS ORDERED: GLUCOSE 40% GEL 15 GM TUBE PO PRN (11:06)
[2025-08-23] MEDS ORDERED: MELATONIN 3 MG TAB PO PRN (11:06)
[2025-08-23] MEDS ORDERED: POLYETHYLENE (MIRALAX) 17 GM PACK PO PRN (11:06)
[2025-08-23] MEDS ORDERED: CARBOHYDRATES FOR HYPOGLYCEMIA PO PRN (11:06)
[2025-08-23] MEDS ORDERED: GLUCAGON FOR INJ 1 MG VIAL SQ PRN (11:06)
[2025-08-23] MEDS ORDERED: DEXTROSE 50% 50 ML SYRINGE IV PRN (11:06)
[2025-08-23] MEDS ORDERED: GLUCOSE 10 TAB/TUBE PO PRN (11:06)
[2025-08-23] MEDS ORDERED: ONDANSETRON INJ 2 MG/ML 2 ML VIAL IV PRN (11:06)
--- NOTE | 2025-08-23 12:30 | Electrocardiogram Report ---
Test Reason : Blood Pressure : */* mmHG Vent. Rate : 68 BPM Atrial Rate : 68 BPM P-R Int : 148 ms QRS Dur : 116 ms QT Int : 420 ms P-R-T Axes : 38 -19 38 degrees QTcB Int : 446 ms Normal sinus rhythm Normal ECG When compared with ECG of 18-Mar-2024 17:40, CO interval has increased Confirmed by Castro Perez ([id number]) on 08/23/2025 12:30:21 PM Referred By: REFERRED SELF Confirmed By: Castro Perez
[2025-08-23] MEDS: INSULIN ASPART PER UNIT CHARGE SC SCH (12:34)
[2025-08-23] MEDS: CLOPIDOGREL BISULFATE 75 MG TAB PO SCH (12:35)
[2025-08-23] MEDS: TAMSULOSIN HCL 0.4 MG CAP PO SCH (12:36)
[2025-08-23] MEDS: METOPROLOL SUCC 25MG EXT REL TAB PO SCH (12:36)
[2025-08-23] MEDS: LOSARTAN POTASSIUM 50 MG TAB PO SCH (12:36)
[2025-08-23] MEDS: SODIUM CHLORIDE 0.9% 1,000 ML IV ONE (18:07)
[2025-08-23] MEDS: ASPIRIN 81 MG ECTAB PO SCH (21:28)
[2025-08-24] MEDS: ACETAMINOPHEN 325 MG TAB PO PRN (05:09)
[2025-08-24 06:17] LABS: Anion Gap 7.0 (3-11); Blood Urea Nitrogen 14.0 mg/dl (6-23); Calcium 9.3 mg/dl (8.6-10.3); Carbon Dioxide 23.0 mmol/L (21-32); Chloride 107.0 mmol/L (98-107); Creatinine Clr Calc Pharmacy 77.0 ml/min; Glucose 165.0 mg/dl (70-99(Fasting)); Potassium 3.9 mmol/L (3.5-5.1); Sodium 137.0 mmol/L (136-145)
[2025-08-24 08:07] VITALS: O2SAT 96
--- NOTE | 2025-08-24 14:11 | Magnetic Resonance Report ---
MRI OF THE BRAIN WITHOUT IV CONTRAST CLINICAL HISTORY: Vertigo COMPARISON STUDY: CT of the brain dated 08/23/2025. MRI of the brain dated 08/29/2020 TECHNIQUE: MRI of the brain was performed utilizing various T1 and T2-weighted sequences in the axial , sagittal, and coronal planes. IV contrast was not administered for this examination. FINDINGS: Brain parenchyma: There is age-related involutional change noting minimal microangiopathic disease. T here is high right parietal encephalomalacia deep to the surgical site. This is related to remote ins ult. There is no hemorrhage or mass effect. There is no restricted diffusion to suggest acute ischemi a. Lomax-white matter differentiation is preserved. No extra-axial fluid collection is seen. The cereb ellar tonsils are normal in configuration. Ventricles, sulci, and cisterns: Prominent secondary to involutional change. Pituitary and sella: Unremarkable. Intracranial vasculature: Normal flow voids are maintained at the skull base. Orbits: The bony orbits are grossly intact. Orbital contents are normal in appearance. Sinuses and mastoids: There is trace mucosal thickening and a 12 mm retention cyst in the right maxil evaristo antrum. There may be paranasal sinuses are clear, as are the mastoid air cells. Calvarium: There is postsurgical change from high right sided craniotomy. No destructive calvarial le margarito is seen. Cervical cord: Partially visualized cervical spinal cord is normal in morphology and signal intensity . IMPRESSION: Chronic and postsurgical change as above with no acute intracranial abnormality identifie d. ACT 112: Negative or not required by law. Electronically signed by: Rock Quinonez M.D. 08/24/2025 2:09 PM
--- NOTE | 2025-08-24 15:26 | Hospitalist Progress Note ---
Date of Service August 24, 2025 Assessment & Plan (1) Vertigo: (2) Gastroenteritis: (3) Lumbar stenosis with neurogenic claudication: (4) CKD (chronic kidney disease), stage III: (5) DM type 2 (diabetes mellitus, type 2): (6) Hypertension: Plan 80 y/o admitted for observation for acute on chronic vertigo resulting in gait unsteadiness, had nausea and diarrhea the day prior to admission which have resolved # Acute on chronic vertigo, highly likely to be peripheral vertigo, perhaps labyrinthitis related to viral syndrome or BPPV Multiple episodes of vertigo in the past, though not this severe. - persistent significant symptoms today having difficulty with gait and some change in his physical examination of his nystagmus so ordered brain MRI which fortunately is negative for acute stroke - continue scheduled and as needed meclizine, he has received a liter of IV fluids yesterday and also in the ED - continue PT and OT # Lumbar radiculopathy Left leg numbness on presentation and now has pain and numbness, this is consistent with lumbar radiculopathy or sciatica related to severe lumbar spinal stenosis. bilateral shoulders and back pain is at his baseline PT/OT eval, continue AFO consider steroid burst. he has upcoming left SI joint injection scheduled in about a month and he has lumbar epidural steroid injection scheduled in October # DM type 2 - hold metformin until good po. Recent A1c at goal - monitor BG, low dose PRN aspart if BG>180 no CR - blood glucoses are at goal # Hx CVA - continue ASA, plavix, not on statin # Chronic musculoskeletal pain - at baseline Chronic left pelvis and hip pain from arthritis in SI joint and severe hip OA visible on x-ray. - Continue p.r.n. oral hydromorphone and APAP for chronic musculoskeletal pain. # Cough Resolving and consistent with a postviral cough. - Further evaluation warranted if it has not cleared up within a couple of weeks. - Chest x-ray was clear. - No fever or leukocytosis and no hypoxia, so acute respiratory infection is very unlikely. # HTN # CKD 3- stable -continue metoprolol XL and ARB -hold HCTZ (diarrhea). consider resuming tomorrow # BPH - cont tamsulosin # GERD - cont PPI # DVT Prophylaxis: enoxaparin ppx Admission and Anticipated Discharge Date Admission Date: August 24, 2025 Subjective The patient is an 80-year-old male admitted with vertigo. Vertigo symptoms have improved by 50% with meclizine. Gait remains unstable, requiring a walker and one-person assistance during physical therapy. Symptoms flare up with movement, especially when sitting back down. Gait feels unsteady and uncoordinated, particularly in the left leg. Experiencing pain radiating from left SI joint area down the leg to the foot, previously limited to numbness. Reports usual low back and shoulder pain from various orthopedic issues. Physical Exam Physical Exam: General Appearance: Awake, alert, oriented x4, and very pleasant. Sitting up in the chair. Vital signs: Reviewed past 24h vital signs in EMR, unremarkable. HEENT: Within normal limits. Respiratory: Lungs clear to auscultation bilaterally. Cardiovascular: Heart rhythm regular. No murmurs, rubs, or gallops. Gastrointestinal: Abdomen soft NT/ND, normal active bowel tones. Extremities: warm and well perfused, no LE edema. Skin: Skin warm and dry. No generalized rashes. Neurological: AOx4, normal speech and mentation, walker x 4. Nystagmus has changed compared to the previous day. He has nystagmus when looking to the right, with less pronounced but more persistent fast phases and some vertical or torsional component. No nystagmus looking upward. New nystagmus when looking to the left, direction of fast phase unclear.Continues to have left facial droop, left lower extremity gait issues, and left upper extremity weakness, which are baseline. Psychiatric: Normal. Results & Data Results & Data Vital Signs (Past 12 Hours) Vital Signs Temp Resp BP Pulse Ox O2 Del Method 08/24/25 08:05 36.3 C L 18 142/82 H 96 Room Air PG Care Time/CCT Total # of Minutes Spent Total Time Spent with Patient: Total time spent is greater than 50% in coordination of care (as documented) at patient's floor/unit and/or counseling patient: Coding Level of Care Code 10012 SUB INP/OBS CARE 3/50MIN Diagnoses Vertigo R42 Gastroenteritis K52.9 Lumbar stenosis with neurogenic claudication M48.062 CKD (chronic kidney disease), stage III N18.3 DM type 2 (diabetes mellitus, type 2) E11.9 Hypertension I10
[2025-08-24] MEDS: ENOXAPARIN INJ 40 MG/0.4 ML SYR SQ SCH (21:47)
[2025-08-25 09:27] VITALS: TEMP 97.5
[2025-08-25 15:00] VITALS: BP 137/85; PULSE 67; RESP 18
[2025-08-25] MEDS ORDERED: MECLIZINE HCL 25MG HOME PACK PO ONE (16:11)
--- NOTE | 2025-08-25 16:20 | Discharge Summary ---
Discharge Summary Date of Service August 25, 2025 Principal Dx & Hospital Course #1 = Principal Diagnosis (1) Vertigo: (2) Gastroenteritis: (3) Lumbar stenosis with neurogenic claudication: (4) CKD (chronic kidney disease), stage III: (5) DM type 2 (diabetes mellitus, type 2): (6) Hypertension: Plan 80 y/o admitted for observation for acute on chronic vertigo resulting in gait unsteadiness, had nausea and diarrhea the day prior to admission which have resolved # Acute on chronic vertigo, highly likely to be peripheral vertigo, perhaps labyrinthitis related to viral syndrome or BPPV Multiple episodes of vertigo in the past, though not this severe - brain MRI was negative for stroke - persisted for two days and significantly affected gait. Treated with PT/OT and scheduled meclizine - resolved or nearly resolved and safe for home discharge - continue PRN meclizine, follow up with PCP, outpatient PT referral if symptoms persisting # Lumbar radiculopathy flare of chronic symptoms - radicular numbness and had pain on 08/24. Asymptomatic today. he has upcoming left SI joint injection scheduled in about a month and he has lumbar epidural steroid injection scheduled in October # DM type 2 - Recent A1c at goal. 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 - Continue p.r.n. oral hydromorphone and APAP for chronic musculoskeletal pain. # Cough Resolving and consistent with a postviral cough. - Further evaluation warranted if it has not cleared up within a couple of weeks. - Chest x-ray was clear. - No fever or leukocytosis and no hypoxia, so acute respiratory infection is very unlikely. # HTN # CKD 3- stable -continue metoprolol XL and ARB, resume HCTZ # BPH - cont tamsulosin # GERD - cont PPI Notes For Next Care Provider peripheral vertigo brain MRI negative for CVA Medication Changes From Visit prn meclizine Admission HPI Per Admitting Provider Mr. Baldo Guzman, 80, has a history of stroke, vertigo, high blood pressure, BPH, depression, lumbar spinal stenosis, left foot drop, stage 3 chronic kidney disease, type 2 diabetes, GERD, sacroiliitis, chronic opioid use, chronic pain, prostate cancer, cavernous hemangioma with two brain surgeries in 2008, DVT after brain surgery, high cholesterol, and hypertension. He has had surgeries including a craniotomy for cavernous hemangioma resulting in chronic LLE>LUE weakness, placement of an IVC filter (unclear if it was removed), and lumbar laminectomy. His medications at home include aspirin, low dose carvedilol, Plavix, hydrochlorothiazide, hydromorphone 2 mg taken four times a day as needed, losartan, metformin, metoprolol succinate 12.5 mg daily, low dose pantoprazole daily, and tamsulosin. Mr. Guzman reports ongoing vertigo, which has improved since he first came in. He doesn't feel dizzy when he's still, but it gets worse when he moves his head or stands up. He had nausea yesterday but feels better now, although he doesn't have much appetite. He hasn't vomited but had diarrhea all day yesterday along with the nausea. He doesn't have any upper respiratory symptoms. He has had a cough with light mucus for several weeks, which is slowly getting better. He hasn't had a fever, chills, sweats, or been around anyone sick. His is well. He hasn't had chest pain, shortness of breath, abdominal pain, bloody diarrhea, melena, painful urination, frequent or urgent urination, rashes, swollen or painful joints, or leg swelling. He was treated with meclizine 25 mg at 4 AM and 1 liter of normal saline. Yesterday, he experienced temporary numbness in his left lower leg that started from his back and caused him to fall. The numbness improved though still has dysesthesia of LLE, and he was able to walk and didn't have any pain or injuries from the fall. He has a history of lumbar spinal stenosis with similar symptoms. He has chronic weakness in his left leg and arm from previous brain surgery, which hasn't changed. He wears an AFO for chronic left foot drop. He hasn't had any sudden changes in his vision, though his eyesight has been slowly getting worse, and he sees an hyperbaric technician. He doesn't have tinnitus or hearing loss beyond his usual level. He hasn't had numbness in his face, arms, or right leg. He hasn't had trouble speaking or understanding others. He hasn't noticed any increase in weakness in his limbs beyond his usual level, except for the temporary weakness in his leg yesterday. His strength feels normal today, but he still feels some numbness. He doesn't have any low back pain right now. He has pain in his left SI area and left hip, which is typical for him. Discharge Exam AOx4 sitting in chair Appears well Abnormal nystagmus has resolved. Has only a few beats when looking rightward and leftward Discharge Plan Discharge Items Patient Disposition: Home - Self-Care Reason For Visit: VERTIGO Discharge Diagnosis: Peripheral vertigo Condition on Discharge: Good Activity: Resume your previous activity Non-emergency contact: Primary Care Provider Call non-emergency contact if: you have any medication questions and your symptoms worsen Follow-up/Referrals: Anila Doyle MD [Primary Care Provider] - Diet: Regular Addtl Attending Provider Instructions: You were treated for vertigo Brain MRI was unchanged from previous and was negative for stroke Keep taking your usual medicines You can use meclizine (antivert) as needed for vertigo - this is when you're having a sensation of abnormal motion (spinning, the room is moving when you are still or vice versa) This medicine could make you sleepy or even feel lightheaded, however. You can also take 1/2 a tab and see if that works. Follow up with primary care If these episodes are persisting you could go see outpatient PT for treatment It was a pleasure taking care of you in the hospital, Tari Gann MD Pending Studies at Discharge: No Stand-Alone Forms: My [facility] [place], Smoking Cessation Medications and DC Order Prescriptions: New meclizine 25 mg Tablet 25 mg PO Q8H PRN (Reason: vertigo) Qty: 21 0RF Continued hydromorphone 2 mg tablet 2 mg PO QID PRN (Reason: Pain) carvedilol 3.125 mg tablet 3.125 mg PO DAILY pantoprazole 20 mg tablet,delayed release (DR/EC) 20 mg PO DAILY Qty: 100 1RF metoprolol succinate 25 mg tablet extended release 24 hr 12.5 mg PO DAILY 100 Days Qty: 50 3RF tamsulosin 0.4 mg capsule 0.4 mg PO QAM Qty: 100 3RF clopidogrel [Plavix] 75 mg tablet 75 mg PO QAM Qty: 100 3RF metformin 500 mg tablet extended release 24 hr 1,000 mg PO QAM 100 Days Qty: 200 3RF hydrochlorothiazide 25 mg tablet 25 mg PO QAM Patient Comments: patient did not mention. found in external med history as recently filled. aspirin 81 mg Tablet,Delayed Release (Dr/Ec) 81 mg PO HS Rx Instructions: 03/29-otc unable to verify polyethylene glycol 3350 [Miralax] 17 gram powder in packet 17 g PO DAILY PRN (Reason: Constipation) Rx Instructions: 03/29-otc unable to verify losartan 50 mg tablet 50 mg PO QAM Discharge Orders: Discharge Order (Routine); Ordered 08/25/25 Ordered By: Tari Gann Admission Data Admit Date/Time: 08/24/25 10:53 Attending Provider: Tari Gann Admit Provider: Tari Gann Primary Care Provider: Anila Doyle Other Providers: Tari Gann Hospital Stay Data Consultations 08/23/25 06:36 ED Decision to Admit Stat Diagnostic Imagining Performed 08/23/25 04:32 CT head/brain wo con Stat 08/24/25 10:52 MR brain wo con Urgent Pending Results Patient Have Any Pending Studies at Discharge: No Discharge Instructions Given to Patient (Per Discharging Provider) You were treated for vertigo Brain MRI was unchanged from previous and was negative for stroke Keep taking your usual medicines You can use meclizine (antivert) as needed for vertigo - this is when you're having a sensation of abnormal motion (spinning, the room is moving when you are still or vice versa) This medicine could make you sleepy or even feel lightheaded, however. You can also take 1/2 a tab and see if that works. Follow up with primary care If these episodes are persisting you could go see outpatient PT for treatment It was a pleasure taking care of you in the hospital, Tari Gann MD Total Time Total Time Spent Total Time Spent (In Minutes): <30 Coding Level of Care Code 12883 IN/OBS DISCH 30 MIN/LESS Diagnoses Vertigo R42 Gastroenteritis K52.9 Lumbar stenosis with neurogenic claudication M48.062 CKD (chronic kidney disease), stage III N18.3 DM type 2 (diabetes mellitus, type 2) E11.9 Hypertension I10
== END 2025-08-25 15:00 | disposition home or self-care (01) | DRG 149 ==
LOC: ED 04:28 → 3E 04:28